=== PATIENT | female | born 1935 | race Caucasian/White ===

== ENCOUNTER → 2017-03-08 | Outpatient (CLI) | payer OTHER ==
[~2017-03-08] MED LIST: CITA20TA9 PO; ESTRADIOL 0.05 MG/24 HR TOP; MECL25TA2 PO; NAPR-1264 PO
--- NOTE | 2017-03-08 12:52 | MAMMOGRAPHY REPORT ---
BILATERAL DIGITAL SCREENING MAMMOGRAM WITH CAD: 03/08/2017 CLINICAL HISTORY: Routine screening. Patient has no complaints. TECHNIQUE: Current study was also evaluated with a Computer Aided Detection (CAD) system. Bilateral CC and MLO views were obtained. COMPARISON: Comparison is made to exams dated: 03/01/2016 mammogram, 02/28/2015 mammogram, 4 mammogram, 02/21/2012 mammogram, 02/20/2011 mammogram, and 02/17/2010 mammogram - [facility]. BREAST COMPOSITION: The tissue of both breasts is heterogeneously dense, which may obscure small mas ses. FINDINGS: No suspicious masses, calcifications, or areas of architectural distortion are noted in ei ther breast. There has been no significant interval change compared to prior exams. Scattered bilater al benign-appearing calcifications are not significantly changed. IMPRESSION: ACR BI-RADS CATEGORY 2: BENIGN There is no mammographic evidence of malignancy. A 1 year screening mammogram is recommended. The pa tient will receive written notification of the results. Approximately 10% of breast cancers are not detected with mammography. A negative mammographic report should not delay biopsy if a clinically suggestive mass is present. Mae Smith M.D. /:03/08/2017 12:11:35 Prospecting Driller Helper: Keturah Erickson, [facility] letter sent: Normal 1/2 BI-RADS Code: ACR BI-RADS Category 2: Benign
== END | disposition home or self-care (01) ==
LOC: C.MAMM 10:38
PROVIDERS: ATTEND Family Medicine
DX: Z12.31 Encounter for screening mammogram for malignant neoplasm of breast (principal)

== ENCOUNTER 2021-04-27 09:15 | Inpatient (IN) ==
--- NOTE | 2021-04-27 09:50 | Emergency Department Note ---
History of Present Illness General Chief complaint: GI Assessment Stated complaint: UPPER ABD PAIN Time Seen by Provider: 04/27/21 09:28 Source: patient Mode of arrival: ambulatory Limitations: no limitations History of Present Illness Provider complaint: abd pain Onset (ago): week(s) 3 Location: abdomen Radiation: non-radiation Severity: moderate Maximum Pain Intensity: 10 Quality: + constant Relieved By: + none Exacerbated By: + eating Associated symptoms: + loss of appetite, + malaise and + nausea/vomiting; no chest pain or no fever/chills Treatments prior to arrival: none This is an 85-year-old female presents the emergency department complaining of worsening abdominal pain. Patient states she first began to notice discomfort approximately 3 weeks ago. Patient states she has a long history of abdominal pain and prior abdominal surgery. 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 Patient denies fevers or chills, states she has been nauseated but does use Zofran that she had previously been given at home as needed. Patient states she has had minimal passage of gas. She states she feels bloated and distended. She does try to use Tylenol at home for pain however the pain was worse enough last night that she was unable to sleep and called her son this morning to bring her to the emergency room. Patient does not recall eating anything in particular that began her symptoms several weeks ago. Patient states she has had similar episodes in the past where she feels "blocked up". Pt seen during a time of high acuity and national emergency pandemic while wearing PPE. Home Medications Medication Instructions Recorded Confirmed Type citalopram 20 mg tablet 30 mg PO HS 02/16/18 04/27/21 History ondansetron 4 mg disintegrating 4 mg PO Q6H PRN 04/27/21 04/27/21 History tablet Allergies Allergy/AdvReac Type Severity Reaction Status Date / Time latex Allergy Mild blisters Verified 04/27/21 10:42 Past Med/Surg History Medical History (Updated 04/29/21 @ 01:05 by Charo Kelly DO) Difficult airway for intubation Essential hypertension Osteoporosis Reflux esophagitis Urge incontinence Surgical History (Updated 04/27/21 @ 13:37 by Irena Lehman PA-C) Status post Seferino fundoplication 2012 - Dr. Hedrick Family History Other Family history non-contributory Social History Smoking Status: Never smoker Hx Alcohol Use: No Hx Substance Use: No Preferred Language: Belarusian Communication Ability: Effective Public Housing Manager Required: No Beliefs That Will Affect Care: None marital status: Current Living Situation: Spouse and Family Feels Safe at Home: Yes Safety Concerns: Feels Safe At This Time Assistive Devices: Walker Review of Systems A total of 10 systems reviewed and were otherwise negative All systems reviewed & are unremarkable except as noted in HPI & below Physical Exam Vital Signs Vital Signs - 24 hr 04/27/21 09:20 04/27/21 10:07 04/27/21 10:30 Temperature 36.5 C Temperature Source Temporal Artery Scan Pulse Rate 68 68 69 Pulse Rate [Apical] Pulse Rate from SpO2 Sensor 66 68 Pulse Rhythm Regular Pulse Rhythm [Apical] Pulse Strength Normal Pulse Strength [Apical] Respiratory Rate 20 16 18 Respiratory Effort / Characteristics Non-Labored Spontaneous Respiratory Depth Normal Respiratory Pattern Regular Blood Pressure 156/101 H 160/87 H 191/95 H Blood Pressure [Left Arm] Blood Pressure Mean 119 111 127 Blood Pressure Mean [Left Arm] Blood Pressure Position Sitting Blood Pressure Position [Left Arm] Pulse Oximetry 100 97 97 Oxygen Delivery Method Room Air Sepsis Recent Fever Within 48 Hours No Sepsis New/Unexplained Change in Mental Status No Sepsis Action Taken by Nursing No Action Required 04/27/21 11:15 Temperature Temperature Source Pulse Rate Pulse Rate [Apical] 81 Pulse Rate from SpO2 Sensor Pulse Rhythm Pulse Rhythm [Apical] Regular Pulse Strength Pulse Strength [Apical] Normal Respiratory Rate 18 Respiratory Effort / Characteristics Non-Labored Respiratory Depth Normal Respiratory Pattern Regular Blood Pressure Blood Pressure [Left Arm] 171/92 H Blood Pressure Mean Blood Pressure Mean [Left Arm] 118 Blood Pressure Position Blood Pressure Position [Left Arm] Lying Pulse Oximetry 97 Oxygen Delivery Method Room Air Sepsis Recent Fever Within 48 Hours Sepsis New/Unexplained Change in Mental Status Sepsis Action Taken by Nursing GENERAL: alert, ill appearing, well nourished, no distress, non-toxic EYE EXAM: normal conjunctiva, PERRL and EOM's grossly intact OROPHARYNX: no exudate, no erythema, lips, buccal mucosa, and tongue normal and mucous membranes are moist NECK: supple, no nuchal rigidity, no adenopathy, non-tender LUNGS: Clear to auscultation. Normal chest wall mechanics, no w/r/r HEART: no murmurs, S1 normal and S2 normal ABDOMEN: abdomen soft, tenderness centrally with palpation, well healed surgical scars, normo-active bowel sounds, no masses, no rebound or guarding. BACK: Back is symmetrical on inspection and there is no deformity, no midline tenderness, no CVA tenderness. SKIN: no rashes and no bruising UPPER EXTREMITIES: upper extremities are grossly normal. FROM, nml pulses b/l. LOWER EXTREMITIES: No pitting edema. FROM, nml pulses b/l. NEURO EXAM: Normal sensorium, cranial nerves II-XII grossly intact, normal speech, no gross weakness of arms, no gross weakness of legs. Gross sensation intact. Course Course 1155: Patient and son updated on results at bedside. Patient states she is stil l having pain. Administered Medications Enoxaparin Sodium (Enoxaparin Inj 30 Mg/0.3 Ml Syr) 30 mg SQ HS MAREN; Protocol Stop: 05/28/21 20:59 Last Admin: 04/28/21 22:10 Dose: 30 mg Documented by: [id number] Lactated Ringer's (Lr) 1,000 mls @ 125 mls/hr IV .Q8H MAREN Stop: 05/27/21 09:44 Last Admin: 04/28/21 22:44 Dose: 125 mls/hr Documented by: [id number] Infusion: 04/28/21 22:16 Dose: 125 mls/hr Documented by: [id number] Admin: 04/28/21 14:16 Dose: 125 mls/hr Documented by: [id number] Infusion: 04/28/21 13:58 Dose: 125 mls/hr Documented by: [id number] Admin: 04/28/21 05:58 Dose: 125 mls/hr Documented by: [id number] Infusion: 04/28/21 05:57 Dose: 125 mls/hr Documented by: [id number] Admin: 04/27/21 21:57 Dose: 125 mls/hr Documented by: [id number] Infusion: 04/27/21 18:01 Dose: 0 mls/hr Documented by: [id number] Admin: 04/27/21 10:00 Dose: 125 mls/hr Documented by: [id number] Acetaminophen (Ofirmev) 65 mls @ 260 mls/hr IV Q8H MAREN Stop: 04/30/21 13:59 Last Infusion: 04/28/21 22:48 Dose: 0 mls/hr Documented by: [id number] Admin: 04/28/21 22:22 Dose: 260 mls/hr Documented by: [id number] Infusion: 04/28/21 15:47 Dose: 0 mls/hr Documented by: [id number] Admin: 04/28/21 14:14 Dose: 260 mls/hr Documented by: [id number] Infusion: 04/28/21 08:11 Dose: 0 mls/hr Documented by: [id number] Admin: 04/28/21 06:11 Dose: 260 mls/hr Documented by: [id number] Infusion: 04/28/21 00:31 Dose: 0 mls/hr Documented by: [id number] Admin: 04/28/21 00:10 Dose: 260 mls/hr Documented by: [id number] Infusion: 04/27/21 14:30 Dose: 0 mls/hr Documented by: [id number] Admin: 04/27/21 14:14 Dose: 260 mls/hr Documented by: [id number] Ceftriaxone Sodium 1,000 mg/ (Dextrose) 60 mls @ 100 mls/hr IV DAILY MAREN; Protocol Stop: 05/03/21 08:59 Last Infusion: 04/28/21 10:02 Dose: 0 mls/hr Documented by: [id number] Admin: 04/28/21 08:11 Dose: 100 mls/hr Documented by: [id number] Morphine Sulfate (Morphine Sulfate 2 Mg/Ml Carp) 2 mg IV Q4H PRN PRN Reason: Pain Stop: 05/11/21 15:56 Last Admin: 04/27/21 17:02 Dose: 2 mg Documented by: [id number] Ondansetron HCl (Ondansetron Inj 2 Mg/Ml 2 Ml Vial) 4 mg IV Q6H PRN PRN Reason: Nausea And Vomiting Stop: 05/27/21 15:52 Last Admin: 04/28/21 22:14 Dose: 4 mg Documented by: [id number] Admin: 04/28/21 14:18 Dose: 4 mg Documented by: [id number] Admin: 04/28/21 00:16 Dose: 4 mg Documented by: [id number] Discontinued Medications Fentanyl Citrate (Fentanyl Citrate 100 Mcg/2 Ml Vial) 25 mcg IV Q15M PRN PRN Reason: Pain Stop: 05/11/21 11:59 Last Admin: 04/27/21 15:45 Dose: 25 mcg Documented by: [id number] Admin: 04/27/21 14:51 Dose: 25 mcg Documented by: [id number] Ceftriaxone Sodium (Rocephin) 1,000 mg in 50 mls @ 100 mls/hr IV NOW STA Stop: 04/27/21 12:52 Last Infusion: 04/27/21 13:35 Dose: 0 mls/hr Documented by: [id number] Admin: 04/27/21 13:34 Dose: 100 mls/hr Documented by: [id number] Acetaminophen (Ofirmev) 650 mls @ 260 mls/hr IV Q8H MAREN Stop: 04/30/21 13:59 Last Admin: 04/27/21 14:21 Dose: Not Given Documented by: [id number] Ioversol (Optiray 320 100ml) 94 ml IV ONCE ONE Stop: 04/27/21 11:27 Last Admin: 04/27/21 11:22 Dose: 94 ml Documented by: [id number] Sodium Biphosphate/Sodium Phosphate (Sod Phosphate/Sod Biphosphate Enema 132 Ml Btl) 132 ml ND NOW STA Stop: 04/27/21 23:48 Last Admin: 04/28/21 00:11 Dose: 132 ml Documented by: [id number] Medical Decision Making Differential Diagnosis Differential diagnoses includes but is not limited to gastritis, peptic ulcer disease, GERD, gallbladder disease, pancreatitis, small bowel obstruction, acute coronary syndrome, pericarditis, ischemic bowel, irritable bowel disease, irritable bowel syndrome, appendicitis, diverticulitis, malignancy, hernia, urinary tract infection, torsion, [/ectopic (if female)], perforation, trauma, infectious. Medical Records Attestation: I reviewed the patient's medical records. Home Medications Current Medication List: was personally reviewed by me Laboratory Data Attestation: I reviewed the patient's lab results. Result diagrams: 04/28/21 06:17 04/28/21 06:17 Lab Results 04/27/21 04/27/21 04/27/21 Range/Units 09:59 09:59 09:59 WBC 5.94 (4.8-10.8) K/uL RBC 4.32 (4.2-5.4) M/uL Hgb 10.7 L (12.0-16.0) g/dL Hct 35.5 L (37-47) % MCV 82.2 (80-100) fL MCH 24.8 L (25-34) pg MCHC 30.1 L (32-36) g/dL RDW Std Deviation 45.4 (36.4-46.3) fL RDW Coeff of Kayli 15.1 H (11.5-14.5) % Plt Count 241 (130-400) K/uL MPV 10.5 H (7.4-10.4) fL Immature Gran % (Auto) 0.2 % Neut % (Auto) 85.3 % Lymph % (Auto) 8.1 % [place] % (Auto) 6.2 % Eos % (Auto) 0.0 % Baso % (Auto) 0.2 % Neut # (Auto) 5.07 (1.4-6.5) K/uL Lymph # (Auto) 0.48 L (1.2-3.4) K/uL [place] # (Auto) 0.37 (0.11-0.59) K/uL Eos # (Auto) 0.00 (0-0.5) K/uL Baso # (Auto) 0.01 (0-0.2) K/uL Immature Gran # (Auto) 0.01 (0.00-0.02) K/uL Sodium 136 (136-145) mmol/L Potassium 3.7 (3.5-5.1) mmol/L Chloride 98 (98-107) mmol/L Carbon Dioxide 30 (21-32) mmol/L Anion Gap 8 (3-11) BUN 15 (6-23) mg/dl Creatinine 0.76 (0.6-1.2) mg/dl Est Cr Clr Drug Dosing 36.6 ml/min Est GFR ( Amer) 81.7 ml/min Est GFR (Non-Af Amer) 70.5 ml/min BUN/Creatinine Ratio 19.7 (10-20) Glucose 117 H (70-99(Fasting)) mg/dl Lactate 1.5 (0.4-2.0) mmol/L Calcium 9.0 (8.5-10.1) mg/dl Magnesium 1.9 (1.7-2.4) mg/dl Total Bilirubin 0.6 (0.2-1.0) mg/dl AST 18 (13-39) U/L ALT 8 (7-52) U/L Alkaline Phosphatase 66 (34-104) U/L Troponin I 0.06 H* (0-0.04) ng/ml Total Protein 6.6 (6.0-8.3) gm/dl Albumin 4.2 (3.4-5.0) gm/dl Globulin 2.4 L (2.5-4.0) gm/dl Albumin/Globulin Ratio 1.8 (0.9-2) Lipase 6 L (11-82) U/L Urine Color Urine Appearance (Clear) Urine pH (4.5-7.5) Ur Specific [place] (1.000-1.030) Urine Protein (Negative) Urine Glucose (UA) (Negative) Urine Ketones (Negative) Urine Blood (Negative) Urine Nitrite (Negative) Urine Bilirubin (Negative) Urine Urobilinogen (Negative) Ur Leukocyte Esterase (Negative) Urine WBC (Auto) (0-5) /hpf Urine RBC (Auto) (0-4) /hpf U Hyaline Cast (Auto) (0-5) /lpf U Epithel Cells (Auto) (0-5) /lpf Urine Bacteria (Auto) (Negative) 04/27/21 Range/Units 10:15 WBC (4.8-10.8) K/uL RBC (4.2-5.4) M/uL Hgb (12.0-16.0) g/dL Hct (37-47) % MCV (80-100) fL MCH (25-34) pg MCHC (32-36) g/dL RDW Std Deviation (36.4-46.3) fL RDW Coeff of Kayli (11.5-14.5) % Plt Count (130-400) K/uL MPV (7.4-10.4) fL Immature Gran % (Auto) % Neut % (Auto) % Lymph % (Auto) % [place] % (Auto) % Eos % (Auto) % Baso % (Auto) % Neut # (Auto) (1.4-6.5) K/uL Lymph # (Auto) (1.2-3.4) K/uL [place] # (Auto) (0.11-0.59) K/uL Eos # (Auto) (0-0.5) K/uL Baso # (Auto) (0-0.2) K/uL Immature Gran # (Auto) (0.00-0.02) K/uL Sodium (136-145) mmol/L Potassium (3.5-5.1) mmol/L Chloride (98-107) mmol/L Carbon Dioxide (21-32) mmol/L Anion Gap (3-11) BUN (6-23) mg/dl Creatinine (0.6-1.2) mg/dl Est Cr Clr Drug Dosing ml/min Est GFR ( Amer) ml/min Est GFR (Non-Af Amer) ml/min BUN/Creatinine Ratio (10-20) Glucose (70-99(Fasting)) mg/dl Lactate (0.4-2.0) mmol/L Calcium (8.5-10.1) mg/dl Magnesium (1.7-2.4) mg/dl Total Bilirubin (0.2-1.0) mg/dl AST (13-39) U/L ALT (7-52) U/L Alkaline Phosphatase (34-104) U/L Troponin I (0-0.04) ng/ml Total Protein (6.0-8.3) gm/dl Albumin (3.4-5.0) gm/dl Globulin (2.5-4.0) gm/dl Albumin/Globulin Ratio (0.9-2) Lipase (11-82) U/L Urine Color Yellow Urine Appearance Cloudy A (Clear) Urine pH 7.5 (4.5-7.5) Ur Specific [place] 1.018 (1.000-1.030) Urine Protein 1+ H (Negative) Urine Glucose (UA) Negative (Negative) Urine Ketones 1+ H (Negative) Urine Blood Negative (Negative) Urine Nitrite Negative (Negative) Urine Bilirubin Negative (Negative) Urine Urobilinogen Negative (Negative) Ur Leukocyte Esterase 3+ H (Negative) Urine WBC (Auto) >30 H (0-5) /hpf Urine RBC (Auto) 0-4 (0-4) /hpf U Hyaline Cast (Auto) 1-5 (0-5) /lpf U Epithel Cells (Auto) >30 H (0-5) /lpf Urine Bacteria (Auto) 4+ H (Negative) Imaging Data Radiologist's Impression: Abdomen/Pelvis CT 04/27/21 09:43 CT abd pelvis IV con only CLINICAL HISTORY: abd pain/distention, nausea COMPARISON STUDY: 09/16/2020 CT DOSE: 260.80 mGycm TECHNIQUE: Standard CT of the Abdomen and Pelvis was performed with IV contrast. A dose lowering technique was utilized adhering to the principles of ALARA. Contrast Volume: Optiray 320, 94 ml. The patient did not receive oral contrast. FINDINGS: Lung base: The lung bases are clear. Abdominal cavity: There is mild abdominal ascites with fluid surrounding the l iver and spleen extending down the right paracolic gutter. Mild pelvic ascites also present. There is no gross abdominal mass or adenopathy. Liver: There is homogeneous attenuation of the liver parenchyma. There is no evidence for enhancing mass lesion. Spleen: There is homogeneous attenuation of the splenic parenchyma. There is no enhancing mass lesion. Pancreas: There is homogeneous attenuation of the pancreatic parenchyma. There is no evidence for mass lesion or peripancreatic fluid collection. Gall Bladder: The gallbladder is well distended with no evidence for intraluminal calculi, wall thickening or pericholecystic edema. Adrenal glands: The adrenal glands are normal in size and attenuation. There is no evidence for enhancing mass lesion. Kidneys: There is homogeneous attenuation of the renal parenchyma bilaterally. There is no evidence for renal calculus or hydronephrosis. There is no evidence for enhancing mass. Bowel: There is a small hiatal hernia. There is moderate dilatation of the small bowel loops to the level of the left lower quadrant. The distal small bowel loops are decompressed. No focal site of obstruction is seen. However, the findings are characteristic of a partial small bowel obstruction. There is prominent fecal material seen within the colon. Findings represent moderate fecal stasis. There is no evidence for an inflamed appendix. There are no inflammatory changes present. There is no evidence for free air. Bladder: The bladder is within normal limits with no evidence for focal mass, calculus or diverticulum. : There is no evidence for pelvic mass or adenopathy. There is mild pelvic a scites present. Vasculature: There is no evidence for aneurysmal dilatation of the abdominal aorta. Atherosclerotic calcification is present. Osseous structures: There is no acute osseous pathology. Degenerative changes are seen within the spine. IMPRESSION: 1. Evidence for partial small bowel obstruction most likely within the left lower quadrant. However, a focal site of transition is not identified. 2. Moderate fecal stasis. 3. Small hiatal hernia. 4. Mild abdominal and pelvic ascites. 5. Additional nonacute findings are delineated above. ACT 112: Negative or not required by law. Electronically signed by: Kevin Leggett M.D. 04/27/2021 11:42 AM MDM Narrative This is an 85-year-old female presents complaining of abdominal pain. Patient with significant past prior abdominal surgeries. Patient with generalized weakness and admits to dehydration. Labs are reassuring, however CT suggestive of partial small bowel obstruction. Patient also found to have a suboptimally UA however suggestive of UTI. She was covered with IV antibiotics as a precaution and culture was sent. Patient given medication for pain and nausea and started on gentle IV fluid rehydration. Due to concern for evolving SBO as well as symptoms, case discussed with hospitalist for additional evaluation and management. No evidence for perforation, concurrent infectious etiology, or ischemia. Patient and son at bedside made aware of all results, verbalized understanding, and were in agreement with plan. An order was placed for continuous cardiac monitoring. The monitor shows a rate of _82_ with _normal sinus_ rhythm. Impression & Plan Abdominal pain, Partial small bowel obstruction, Acute UTI (urinary tract infection), Dehydration, Generalized weakness Discharge Plan Visit Data Chief Complaint: GI Assessment Stated Complaint: UPPER ABD PAIN ED Provider: Charo Kelly Discharge Problem: Abdominal pain, Partial small bowel obstruction, Acute UTI (urinary tract infection), Dehydration, Generalized weakness Patient Disposition: Admitted As Inpatient Discharge Instructions Interventions: ED Discharge Assessment Last Done: 04/27/21 15:09 Discharge Problem: Abdominal pain Qualifiers: Abdominal location: generalized Qualified Code(s): R10.84 - Generalized abdominal pain
[2021-04-27] MEDS: LACTATED RINGER'S 1,000 ML IV SCH ×2 (10:00→21:57)
[2021-04-27 10:08] LABS: Basophils # (auto) 0.01 K/uL (0-0.2); Basophils % (auto) 0.2 %; Hematocrit (blood only) 35.5 % (37-47); Hemoglobin 10.7 g/dL (12.0-16.0); Immature Granulocytes # (auto) 0.01 K/uL (0.00-0.02); Immature Granulocytes % (auto) 0.2 %; Lymphocytes # (auto) 0.48 K/uL (1.2-3.4); Lymphocytes % (auto) 8.1 %; Mean Corpuscular Hemoglobin 24.8 pg (25-34); Mean Corpuscular Hgb Conc 30.1 g/dL (32-36); Mean Corpuscular Volume 82.2 fL (80-100); Mean Platelet Volume 10.5 fL (7.4-10.4); Monocytes # (auto) 0.37 K/uL (0.11-0.59); Monocytes % (auto) 6.2 %; Neutrophils # (auto) 5.07 K/uL (1.4-6.5); Neutrophils % (auto) 85.3 %; Platelet Count 241 K/uL (130-400); RDW Coefficient of Variation 15.1 % (11.5-14.5); RDW Standard Deviation 45.4 fL (36.4-46.3); Red Blood Count 4.32 M/uL (4.2-5.4); White Blood Count 5.94 K/uL (4.8-10.8)
[2021-04-27 10:50] LABS: Appearance Urine Cloudy (Clear); Bacteria Urine Automated 4+ (Negative); Bilirubin Urine Negative (Negative); Blood Urine Negative (Negative); Color Urine Yellow; Epithelial Cell Urine Auto >30 /lpf (0-5); Glucose Urine UA Negative (Negative); Ketones Urine 1+ (Negative); Leukocyte Esterase Urine 3+ (Negative); Nitrite Urine Negative (Negative); RBC Urine Automated 0-4 /hpf (0-4); Specific Gravity Urine 1.018 (1.000-1.030); Urobilinogen Urine Negative (Negative); WBC Urine Automated >30 /hpf (0-5); pH Urine 7.5 (4.5-7.5)
[2021-04-27 10:52] LABS: Protein Urine 1+ (Negative)
[2021-04-27 10:55] LABS: Albumin Globulin Ratio 1.8 (0.9-2); Albumin Level 4.2 gm/dl (3.4-5.0); BUN Creatinine Ratio 19.7 (10-20); Bilirubin,Total 0.6 mg/dl (0.2-1.0); Creatinine Clr Calc Pharmacy 36.6 ml/min; Est GFR (African American) 81.7 ml/min; Est GFR (Non-African American) 70.5 ml/min; Globulin 2.4 gm/dl (2.5-4.0); Magnesium 1.9 mg/dl (1.7-2.4); Potassium 3.7 mmol/L (3.5-5.1); Total Protein 6.6 gm/dl (6.0-8.3)
[2021-04-27 11:14] LABS: Troponin I 0.06 ng/ml (0-0.04)
[2021-04-27] MEDS ORDERED: OPTIRAY 320 100ml IV ONE (11:26)
--- NOTE | 2021-04-27 11:43 | CT Scan Report ---
CT abd pelvis IV con only CLINICAL HISTORY: abd pain/distention, nausea COMPARISON STUDY: 09/16/2020 CT DOSE: 260.80 mGycm TECHNIQUE: Standard CT of the Abdomen and Pelvis was performed with IV contrast. A dose lowering jojo hnique was utilized adhering to the principles of ALARA. Contrast Volume: Optiray 320, 94 ml. The patient did not receive oral contrast. FINDINGS: Lung base: The lung bases are clear. Abdominal cavity: There is mild abdominal ascites with fluid surrounding the liver and spleen extendi ng down the right paracolic gutter. Mild pelvic ascites also present. There is no gross abdominal mas s or adenopathy. Liver: There is homogeneous attenuation of the liver parenchyma. There is no evidence for enhancing m ass lesion. Spleen: There is homogeneous attenuation of the splenic parenchyma. There is no enhancing mass lesion . Pancreas: There is homogeneous attenuation of the pancreatic parenchyma. There is no evidence for mas s lesion or peripancreatic fluid collection. Gall Bladder: The gallbladder is well distended with no evidence for intraluminal calculi, wall thick ening or pericholecystic edema. Adrenal glands: The adrenal glands are normal in size and attenuation. There is no evidence for enhan cing mass lesion. Kidneys: There is homogeneous attenuation of the renal parenchyma bilaterally. There is no evidence f or renal calculus or hydronephrosis. There is no evidence for enhancing mass. Bowel: There is a small hiatal hernia. There is moderate dilatation of the small bowel loops to the l evel of the left lower quadrant. The distal small bowel loops are decompressed. No focal site of obst ruction is seen. However, the findings are characteristic of a partial small bowel obstruction. There is prominent fecal material seen within the colon. Findings represent moderate fecal stasis. Th ere is no evidence for an inflamed appendix. There are no inflammatory changes present. There is no e vidence for free air. Bladder: The bladder is within normal limits with no evidence for focal mass, calculus or diverticulu m. : There is no evidence for pelvic mass or adenopathy. There is mild pelvic ascites present. Vasculature: There is no evidence for aneurysmal dilatation of the abdominal aorta. Atherosclerotic c alcification is present. Osseous structures: There is no acute osseous pathology. Degenerative changes are seen within the spi ne. IMPRESSION: 1. Evidence for partial small bowel obstruction most likely within the left lower quadrant. However, a focal site of transition is not identified. 2. Moderate fecal stasis. 3. Small hiatal hernia. 4. Mild abdominal and pelvic ascites. 5. Additional nonacute findings are delineated above. ACT 112: Negative or not required by law. Electronically signed by: Kevin Leggett M.D. 04/27/2021 11:42 AM
[2021-04-27] MEDS ORDERED: cefTRIAXone SODIUM 1,000 MG/50 ML BAG IV STA (12:23)
--- NOTE | 2021-04-27 12:45 | History & Physical Report ---
Date of Service April 27, 2021 Assessment & Plan (1) Partial small bowel obstruction: Plan: Imaging reviewed. Noted to have fecal stasis on CT, which may be exacerbating her clinical picture - Admit to med/surg telemetry - Continue NPO status - hold NGT for now but will consider if worsening - Consult surgery - Check KUB in the AM - Tap water enema x 1 today - re-eval in AM if additional bowel regimen needed. Pt takes dulcolax prn at baseline - IVF hydration (2) Elevated troponin: Plan: - Trend troponin - Repeat EKG in AM - Check ECHO (3) Repeated falls: Plan: PT/OT evaluation once medically stable (4) Urinary tract infection symptoms: Plan: - Covering empirically with ceftriaxone while waiting on urine culture Plan: Pt seen and reviewed with collaborating physician, Dr. Mcmahon. Plan of care discussed and as outlined above. Code Status: Full code DVT Prophylaxis: Daksha Lehman PA-C History of Present Illness Chief Complaint: Abdominal pain Primary Care Provider: Calvin Mcgill MD This is an 85 y/o female with a PMH of HTN (not on meds), urge incontinence (not on meds), DJD, osteoporosis, and reflux esophagitis s/p Seferino fundoplication who presents to the ED with acute worsening of chronic abdominal pain over the past 24 hours. The pt reports having a laparoscopic Seferino fundoplication by Dr. Hedrick in 2011. Since then, she has had some ongoing issues with intermittent abdominal pain and things getting stuck that she manages with diet modification. However, this has slowly worsened over the past several months such that she can only tolerate a few foods at present including Ritz crackers and coffee-soaked bread. Over the past few weeks, her pain has become more constant and she has noted worsening of chronic constipation. Her last BM was 8-9 days ago and was hard and difficult to pass. She has been using Dulcolax for constipation intermittently. Typically Zofran controls her occasional nausea but over the past 24 hours this no longer seems to be helping. She does have a history of difficulty tolerating narcotics so she prefers to use acetaminophen for pain. Since the Seferino, she does not vomit but she does have nausea and gagging that is worse today. Pain kept her up most of last night. When pain is severe, she has associated chills and sweats. She did have some transient substernal chest pain last night but this has since resolved and she relates it to the abdominal pain. She denies documented fever and shortness of breath. No recent dysuria, hematuria, urinary frequency. She has chronic issues with intermittent dizziness and her son has noted increased falls rec ently due to this. She does not use a walker at home. She cares for her 92 y/o usually. Her son has noted a gradual decline in her oral intake and even energy over the past the several months. Allergies Allergy/AdvReac Type Severity Reaction Status Date / Time latex Allergy Mild blisters Verified 04/27/21 10:42 Home Medications Medication Instructions Recorded Confirmed Type citalopram 20 mg tablet 30 mg PO HS 02/16/18 04/27/21 History ondansetron 4 mg disintegrating 4 mg PO Q6H PRN 04/27/21 04/27/21 History tablet Past Med/Surg History Medical History (Updated 04/27/21 @ 17:26 by Irena Lehman PA-C) Difficult airway for intubation Essential hypertension Osteoporosis Reflux esophagitis Urge incontinence Surgical History (Updated 04/27/21 @ 13:37 by Irena Lehman PA-C) Status post Seferino fundoplication 2011 - Dr. Hedrick Family History Other Family history non-contributory Social History Smoking Status: Never smoker Preferred Language: Bhutanese Feels Safe at Home: Yes Review of Systems Review of Systems: All systems reviewed & are unremarkable except as noted in HPI & below Constitutional: + chills, + sweats, + fatigue and + anorexia; no fever Eyes: no diplopia Ear, Nose, Mouth, Throat: no sore throat and no dysphagia Respiratory: no cough, no chest congestion and no dyspnea Cardiovascular: + chest pain; no palpitations, no lightheadedness and no edema Gastrointestinal: as per Subjective / HPI Genitourinary: no dysuria and no hematuria Musculoskeletal: no back pain and no neck pain Integumentary: no rash and no yellowing of the skin Neurologic: + falls, + generalized weakness and + dizziness Physical Exam Constitutional: + ill appearing and + thin; no acute distress Eyes: + anicteric sclerae Neck: trachea midline Respiratory: no respiratory distress and no labored breathing Auscultation: lungs clear to auscultation bilaterally; no rales, no rhonchi and no wheezes Cardiovascular: Rate/Rhythm: regular rate and regular rhythm Vessels: posterior tibial pulses present and dorsalis pedis pulses present Extremities: no pedal edema Gastrointestinal (Abdomen): Inspection/Auscultation: + abdomen distended and normal bowel sounds Percussion/Palpation: + abdomen tender and abdomen soft; no guarding and abdomen not rigid Musculoskeletal: Head/Neck/Chest: normocephalic, head atraumatic and neck supple Skin: no jaundice Neurologic: moves all extremities; no focal motor deficits Results & Data Results & Data ([facility]) Vital Signs (Past 12 Hours) Vital Signs Temp Pulse Pulse Resp BP BP Pulse Ox 04/27/21 11:15 81 18 171/92 H 97 04/27/21 10:30 69 18 191/95 H 97 04/27/21 10:07 68 16 160/87 H 97 04/27/21 09:20 36.5 C 68 20 156/101 H 100 Laboratory Results Laboratory Results - last 24 hr 04/27/21 04/27/21 04/27/21 09:59 09:59 09:59 WBC 5.94 RBC 4.32 Hgb 10.7 L Hct 35.5 L MCV 82.2 MCH 24.8 L MCHC 30.1 L RDW Std Deviation 45.4 RDW Coeff of Kayli 15.1 H Plt Count 241 MPV 10.5 H Immature Gran % (Auto) 0.2 Neut % (Auto) 85.3 Lymph % (Auto) 8.1 Cass % (Auto) 6.2 Eos % (Auto) 0.0 Baso % (Auto) 0.2 Neut # (Auto) 5.07 Lymph # (Auto) 0.48 L Cass # (Auto) 0.37 Eos # (Auto) 0.00 Baso # (Auto) 0.01 Immature Gran # (Auto) 0.01 Sodium 136 Potassium 3.7 Chloride 98 Carbon Dioxide 30 Anion Gap 8 BUN 15 Creatinine 0.76 Est Cr Clr Drug Dosing 36.6 Est GFR ( Amer) 81.7 Est GFR (Non-Af Amer) 70.5 BUN/Creatinine Ratio 19.7 Glucose 117 H Lactate 1.5 Calcium 9.0 Magnesium 1.9 Total Bilirubin 0.6 AST 18 ALT 8 Alkaline Phosphatase 66 Troponin I 0.06 H* Total Protein 6.6 Albumin 4.2 Globulin 2.4 L Albumin/Globulin Ratio 1.8 Lipase 6 L Urine Color Urine Appearance Urine pH Ur Specific Empire Urine Protein Urine Glucose (UA) Urine Ketones Urine Blood Urine Nitrite Urine Bilirubin Urine Urobilinogen Ur Leukocyte Esterase Urine WBC (Auto) Urine RBC (Auto) U Hyaline Cast (Auto) U Epithel Cells (Auto) Urine Bacteria (Auto) 04/27/21 10:15 WBC RBC Hgb Hct MCV MCH MCHC RDW Std Deviation RDW Coeff of Kayli Plt Count MPV Immature Gran % (Auto) Neut % (Auto) Lymph % (Auto) Cass % (Auto) Eos % (Auto) Baso % (Auto) Neut # (Auto) Lymph # (Auto) Cass # (Auto) Eos # (Auto) Baso # (Auto) Immature Gran # (Auto) Sodium Potassium Chloride Carbon Dioxide Anion Gap BUN Creatinine Est Cr Clr Drug Dosing Est GFR ( Amer) Est GFR (Non-Af Amer) BUN/Creatinine Ratio Glucose Lactate Calcium Magnesium Total Bilirubin AST ALT Alkaline Phosphatase Troponin I Total Protein Albumin Globulin Albumin/Globulin Ratio Lipase Urine Color Yellow Urine Appearance Cloudy A Urine pH 7.5 Ur Specific Empire 1.018 Urine Protein 1+ H Urine Glucose (UA) Negative Urine Ketones 1+ H Urine Blood Negative Urine Nitrite Negative Urine Bilirubin Negative Urine Urobilinogen Negative Ur Leukocyte Esterase 3+ H Urine WBC (Auto) >30 H Urine RBC (Auto) 0-4 U Hyaline Cast (Auto) 1-5 U Epithel Cells (Auto) >30 H Urine Bacteria (Auto) 4+ H Diagnostic Findings CT Abd/Pel 04/27/21 - IMPRESSION: 1. Evidence for partial small bowel obstruction most likely within the left lower quadrant. However, a focal site of transition is not identified. 2. Moderate fecal stasis. 3. Small hiatal hernia. 4. Mild abdominal and pelvic ascites. 5. Additional nonacute findings are delineated above. Medications Administered Lactated Ringer's (Lr) 1,000 mls @ 125 mls/hr IV .Q8H MAREN Stop: 05/27/21 09:44 Last Admin: 04/27/21 10:00 Dose: 125 mls/hr Documented by: [id number] Discontinued Medications Ioversol (Optiray 320 100ml) 94 ml IV ONCE ONE Stop: 04/27/21 11:27 Last Admin: 04/27/21 11: Dose: 94 ml Documented by: [id number] Code Status & VTE Plan VTE Prophylaxis Plan VTE Prophylaxis will be ordered: Yes Supervising Physician Co-Signing Physician Notes Patient is an 85-year-old female with history of degenerative joint disease, osteoporosis, GERD, and other medical problems presents with history of worsening abdominal pain since 1 day duration. Patient has history of laparoscopic Seferino fundoplication many years ago. Patient states her last bowel movement was more than a week ago. She admits to trying Dulcolax for constipation intermittently. Also reports nausea but no vomiting. Reports chills but no fever. Also denies any chest pain, shortness of breath. Please review HPI for complete details of presentation. Blood work suggestive of hemoglobin 10.7, troponin 0 0.06. Urinalysis suggestive of possible UTI. CT abdomen showed findings suggestive of partial small bowel obstruction also noted moderate fecal stasis, small hiatal hernia and mild abdominal pelvic ascites. On exam patient is elderly, ill-appearing, thin, no apparent distress, normocephalic atraumatic, EOMI, decreased breath sounds, clear to auscultation, S1-S2, no murmur, no pedal edema, abdomen distended, tender, decreased bowel sounds, voluntary guarding, alert, awake, oriented, grossly no focal deficits. Patient is admitted for management of partial small bowel obstruction. Also noted mild elevation of troponin likely secondary to elevated blood pressure. Urinalysis concerning for UTI. We will keep her n.p.o. for now. Pain control. IV fluids. Surgery consulted. Will give tap water enema for fecal stasis. Consider NG tube placement if needed. Agree with trending cardiac enzymes, check echo and repeat EKG in the morning. I personally reviewed the record. Patient is interviewed and examined at bedside. Patient's care is coordinated with Irena Lehman PA-C. Please refer to the documentation above for details of patient's presentation and for discussion of other issues.
[2021-04-27] MEDS ORDERED: ACETAMINOPHEN 1000 MG/100 ML IV IV SCH (13:15)
[2021-04-27] MEDS ORDERED: ACETAMINOPHEN IV SCH (14:00)
[2021-04-27] MEDS: ACETAMINOPHEN 65 ML IV SCH (14:14)
--- NOTE | 2021-04-27 14:30 | Electrocardiogram Report ---
Test Reason : Blood Pressure : / mmHG Vent. Rate : 065 BPM Atrial Rate : 065 BPM P-R Int : 142 ms QRS Dur : 082 ms QT Int : 452 ms P-R-T Axes : -07 -08 030 degrees QTc Int : 470 ms Normal sinus rhythm Normal ECG When compared with ECG of 16-SEP-2020 08:46, Premature atrial complexes are no longer Present Confirmed by Regan Mathew ([id number]) on 04/27/2021 2:30:05 PM Referred By: Confirmed By:Regan Mathew
[2021-04-27] MEDS: fentaNYL citrate 100 MCG/2 ML VIAL IV PRN ×2 (14:51→15:45)
[2021-04-27] MEDS ORDERED: NITROGLYCERIN SL 0.4 MG/TAB TAB SL PRN (15:53)
[2021-04-27] MEDS: MoRPHine SULFATE 2 MG/ML CARP IV PRN (17:02)
--- NOTE | 2021-04-27 20:08 | Surgery Consultation ---
Date of Consultation April 27, 2021 Assessment & Plan (1) Urinary tract infection symptoms: see below (2) Partial small bowel obstruction: pt is a 85 year-old female who presents with one day history abdominal pain, CT scan PSBO IMP: PSBO, UTI plan, I agree with internal medicine teat admit pt to hospital, no emergent surgery indication now, conservative treatment , NPO, Iv fluid, antibiotic, control pain, enema, repeat labs in morning, will F/U, pt and her son agree with the plan, I answered all questions, Supervising Physician Co-Signing Physician Notes Patient is an 85-year-old female with history of degenerative joint disease, osteoporosis, GERD, and other medical problems presents with history of worsening abdominal pain since 1 day duration. Patient has history of laparoscopic Seferino fundoplication many years ago. Patient states her last bowel movement was more than a week ago. She admits to trying Dulcolax for constipation intermittently. Also reports nausea but no vomiting. Reports chills but no fever. Also denies any chest pain, shortness of breath. Please review HPI for complete details of presentation. Blood work suggestive of hem oglobin 10.7, troponin 0 0.06. Urinalysis suggestive of possible UTI. CT abdomen showed findings suggestive of partial small bowel obstruction also noted moderate fecal stasis, small hiatal hernia and mild abdominal pelvic ascites. On exam patient is elderly, ill-appearing, thin, no apparent distress, normocephalic atraumatic, EOMI, decreased breath sounds, clear to auscultation, S1-S2, no murmur, no pedal edema, abdomen distended, tender, decreased bowel sounds, voluntary guarding, alert, awake, oriented, grossly no focal deficits. Patient is admitted for management of partial small bowel obstruction. Also noted mild elevation of troponin likely secondary to elevated blood pressure. Urinalysis concerning for UTI. We will keep her n.p.o. for now. Pain control. IV fluids. Surgery consulted. Will give tap water enema for fecal stasis. Consider NG tube placement if needed. Agree with trending cardiac enzymes, check echo and repeat EKG in the morning. I personally reviewed the record. Patient is interviewed and examined at bedside. Patient's care is coordinated with Irena Lehman PA-C. Please refer to the documentation above for details of patient's presentation and for discussion of other issues. History of Present Illness Reason for Consultation: partial SBO Requesting Physician: Bao Mcmahon MD Attending Physician: Bao Mcmahon MD History of Present Illness History of Present Illness Chief Complaint: Abdominal pain Primary Care Provider: Calvin Mcgill MD This is an 85 y/o female with a PMH of HTN (not on meds), urge incontinence (not on meds), DJD, osteoporosis, and reflux esophagitis s/p Seferino fundoplication who presents to the ED with acute worsening of chronic abdominal pain over the past 24 hours. The pt reports having a laparoscopic Seferino fundoplication by Dr. Hedrick in 2011. Since then, she has had some ongoing issues with intermittent abdominal pain and things getting stuck that she manages with diet modification. However, this has slowly worsened over the past several months such that she can only tolerate a few foods at present including Ritz crackers and coffee-soaked bread. Over the past few weeks, her pain has become more constant and she has noted worsening of chronic constipation. Her last BM was 8-9 days ago and was hard and difficult to pass. She has been using Dulcolax for constipation intermittently. Typically Zofran controls her occasional nausea but over the past 24 hours this no longer seems to be helping. She does have a history of difficulty tolerating narcotics so she prefers to use acetaminophen for pain. Since the Seferino, she does not vomit but she does have nausea and gagging that is worse today. Pain kept her up most of last night. When pain is severe, she has associated chills and sweats. She did have some transient substernal chest pain last night but this has since resolved and she relates it to the abdominal pain. She denies documented fever and shortness of breath. No recent dysuria, hematuria, urinary frequency. She has chronic issues with intermittent dizziness and her son has noted increased falls recently due to this. She does not use a walker at home. She cares for her 92 y/o usually. Her son has noted a gradual decline in her oral intake and even energy over the past the several months. I ( Nelda Russell MD ) got a call for consult partial SBO, I reviewed pt's H/P, labs, CT scan with pt and her son, I agree with above history. pt is still have some periumbilical pain, pt has not have BM one week, Allergies Allergy/AdvReac Type Severity Reaction Status Date / Time latex Allergy Mild blisters VerifiedC 04/27/21 10:42 Home Medications Medication Instructions Recorded Confirmed Type citalopram 20 mg tablet 30 mg PO HS 02/16/18 04/27/21 History ondansetron 4 mg disintegrating 4 mg PO Q6H PRN 04/27/21 04/27/21 History tablet Past Med/Surg History Medical History(Updated 04/27/21 @ 17:26 by Irena Lehman PA-C) Difficult airway for intubation Essential hypertension Osteoporosis Reflux esophagitis Urge incontinence Surgical History(Updated 04/27/21 @ 13:37 by Irena Lehman PA-C) Status post Seferino fundoplication 2011 - Dr. Hedrick Family History Other Family history non-contributory Social History Smoking Status: Never smoker Preferred Language: Wallisian Feels Safe at Home: Yes Review of Systems Review of Systems: All systems reviewed & are unremarkable except as noted in HPI & below Constitutional:J + chills, + sweats, + fatigue and + anor exia; no fever Eyes: no diplopia Ear, Nose, Mouth, Throat: no sore throat and no dysphagia D Respiratory: no cough, no chest congestion and no dyspnea Cardiovascular: + chest pain; no palpitations, no lighth eadedness and no edema Gastrointestinal: as per Subjective / HPI Genitourinary: no dysuria and no hematuria Musculoskeletal: no back pain and no neck pain Integumentary: no rash and no yellowing of the skin Neurologic: + falls, + generalized weakness and + di zziness Allergies Allergy/AdvReac Type Severity Reaction Status Date / Time latex Allergy Mild blisters Verified 04/27/21 10:42 Home Medications Medication Instructions Recorded Confirmed Type citalopram 20 mg tablet 30 mg PO HS 02/16/18 04/27/21 History ondansetron 4 mg disintegrating 4 mg PO Q6H PRN 04/27/21 04/27/21 History tablet Patient History Medical History (Updated 04/27/21 @ 17:26 by Irena Lehman PA-C) Difficult airway for intubation Essential hypertension Osteoporosis Reflux esophagitis Urge incontinence Surgical History (Updated 04/27/21 @ 13:37 by Irena Lehman PA-C) Status post Seferino fundoplication 2012 - Dr. Hedrick Family History Other Family history non-contributory Social History Smoking Status: Never smoker Preferred Language: Wallisian Feels Safe at Home: Yes Physical Exam Constitutional: WD/WN, vitals as above Eyes: PERRL, conjunctivae normal, anicteric sclerae Neck: trachea midline, no thyromegaly Respiratory: normal respiratory effort, lungs clear to auscultation Cardiovascular: RRR, no murmur, no edema Gastrointestinal (Abdomen): soft, mild tenderness at periumbilical area, no rebound pain, no distend, BS + Neurologic: patellar DTR's 2+ bilat, sensation intact Psychiatric: A+Ox3, euthymic affect Results & Data ([facility]) Vital Signs (Past 12 Hours) Vital Signs Temp Pulse Pulse Resp BP BP Pulse Ox 04/27/21 17:00 67 14 168/77 H 96 04/27/21 16:59 67 18 154/97 H 97 04/27/21 15:53 61 17 170/97 H 99 04/27/21 15:30 67 16 188/104 H 98 04/27/21 15:09 65 18 157/89 H 97 04/27/21 15:00 70 15 157/89 H 94 04/27/21 14:54 66 18 173/93 H 97 04/27/21 14:17 74 18 172/94 H 97 04/27/21 11:15 81 18 171/92 H 97 04/27/21 10:30 69 18 191/95 H 97 04/27/21 10:07 68 16 160/87 H 97 04/27/21 09:20 36.5 C 68 20 156/101 H 100 Laboratory Results Abnormal lab results 04/27/21 04/27/21 04/27/21 Range/Units 09:59 09:59 10:15 Hgb 10.7 L (12.0-16.0) g/dL Hct 35.5 L (37-47) % MCH 24.8 L (25-34) pg MCHC 30.1 L (32-36) g/dL RDW Coeff of Kayli 15.1 H (11.5-14.5) % MPV 10.5 H (7.4-10.4) fL Lymph # (Auto) 0.48 L (1.2-3.4) K/uL Glucose 117 H (70-99(Fasting)) mg/dl Troponin I 0.06 H* (0-0.04) ng/ml Globulin 2.4 L (2.5-4.0) gm/dl Lipase 6 L (11-82) U/L Urine Appearance Cloudy A (Clear) Urine Protein 1+ H (Negative) Urine Ketones 1+ H (Negative) Ur Leukocyte Esterase 3+ H (Negative) Urine WBC (Auto) >30 H (0-5) /hpf U Epithel Cells (Auto) >30 H (0-5) /lpf Urine Bacteria (Auto) 4+ H (Negative) 04/27/21 Range/Units 16:00 Hgb (12.0-16.0) g/dL Hct (37-47) % MCH (25-34) pg MCHC (32-36) g/dL RDW Coeff of Kayli (11.5-14.5) % MPV (7.4-10.4) fL Lymph # (Auto) (1.2-3.4) K/uL Glucose (70-99(Fasting)) mg/dl Troponin I 0.11 H* (0-0.04) ng/ml Globulin (2.5-4.0) gm/dl Lipase (11-82) U/L Urine Appearance (Clear) Urine Protein (Negative) Urine Ketones (Negative) Ur Leukocyte Esterase (Negative) Urine WBC (Auto) (0-5) /hpf U Epithel Cells (Auto) (0-5) /lpf Urine Bacteria (Auto) (Negative) Diagnostic Findings CT abd pelvis IV con only CLINICAL HISTORY: abd pain/distention, nausea COMPARISON STUDY: 09/16/2020 CT DOSE: 260.80 mGycm TECHNIQUE: Standard CT of the Abdomen and Pelvis was performed with IV contrast. A dose lowering technique was utilized adhering to the principles of ALARA. Contrast Volume: Optiray 320, 94 ml. The patient did not receive oral contrast. FINDINGS: Lung base: The lung bases are clear. Abdominal cavity: There is mild abdominal ascites with fluid surrounding the liver and spleen extending down the right paracolic gutter. Mild pelvic ascites also present. There is no gross abdominal mass or adenopathy. Liver: There is homogeneous attenuation of the liver parenchyma. There is no evidence for enhancing mass lesion. Spleen: There is homogeneous attenuation of the splenic parenchyma. There is no enhancing mass lesion. Pancreas: There is homogeneous attenuation of the pancreatic parenchyma. There is no evidence for mass lesion or peripancreatic fluid collection. Gall Bladder: The gallbladder is well distended with no evidence for intraluminal calculi, wall thickening or pericholecystic edema. Adrenal glands: The adrenal glands are normal in size and attenuation. There is no evidence for enhancing mass lesion. Kidneys: There is homogeneous attenuation of the renal parenchyma bilaterally. There is no evidence for renal calculus or hydronephrosis. There is no evidence for enhancing mass. Bowel: There is a small hiatal hernia. There is moderate dilatation of the small bowel loops to the level of the left lower quadrant. The distal small bowel loops are decompressed. No focal site of obstruction is seen. However, the findings are characteristic of a partial small bowel obstruction. There is prominent fecal material seen within the colon. Findings represent moderate fecal stasis. There is no evidence for an inflamed appendix. There are no inflammatory changes present. There is no evidence for free air. Bladder: The bladder is within normal limits with no evidence for focal mass, ca lculus or diverticulum. : There is no evidence for pelvic mass or adenopathy. There is mild pelvic ascites present. Vasculature: There is no evidence for aneurysmal dilatation of the abdominal aor ta. Atherosclerotic calcification is present. Osseous structures: There is no acute osseous pathology. Degenerative changes are seen within the spine. IMPRESSION: 1. Evidence for partial small bowel obstruction most likely within the left lower quadrant. However, a focal site of transition is not identified. 2. Moderate fecal stasis. 3. Small hiatal hernia. 4. Mild abdominal and pelvic ascites. 5. Additional nonacute findings are delineated above.
[2021-04-27] MEDS ORDERED: SOD PHOSPHATE/SOD BIPHOSPHATE ENEMA 132 ML BTL PR STA ×2 (21:05→23:47)
[2021-04-28] MEDS: ACETAMINOPHEN 65 ML IV SCH ×4 (00:10→22:22)
[2021-04-28] MEDS: ONDANSETRON INJ 2 MG/ML 2 ML VIAL IV PRN ×3 (00:16→22:14)
[2021-04-28] MEDS: LACTATED RINGER'S 1,000 ML IV SCH ×3 (05:58→22:44)
[2021-04-28 06:40] LABS: Hematocrit (blood only) 36.9 % (37-47); Hemoglobin 11.2 g/dL (12.0-16.0); Immature Granulocytes # (auto) 0.02 K/uL (0.00-0.02); Immature Granulocytes % (auto) 0.3 %; Lymphocytes # (auto) 1.06 K/uL (1.2-3.4); Lymphocytes % (auto) 13.4 %; Mean Corpuscular Hemoglobin 24.8 pg (25-34); Mean Corpuscular Hgb Conc 30.4 g/dL (32-36); Mean Corpuscular Volume 81.6 fL (80-100); Mean Platelet Volume 10.9 fL (7.4-10.4); Monocytes % (auto) 11.4 %; Neutrophils # (auto) 5.92 K/uL (1.4-6.5); Neutrophils % (auto) 74.9 %; Platelet Count 294 K/uL (130-400); RDW Coefficient of Variation 15.3 % (11.5-14.5); Red Blood Count 4.52 M/uL (4.2-5.4)
[2021-04-28 07:05] LABS: BUN Creatinine Ratio 20.4 (10-20); Calcium 8.2 mg/dl (8.5-10.1); Creatinine Clr Calc Pharmacy 29.4 ml/min; Est GFR (Non-African American) 55.3 ml/min; Potassium 4.2 mmol/L (3.5-5.1)
[2021-04-28] MEDS: cefTRIAXone SODIUM 1,000 MG in DEXTROSE 5% 50 ML IV SCH (08:11)
--- NOTE | 2021-04-28 12:32 | XRay Report ---
XR KUB/Abdomen 1 view CLINICAL HISTORY: partial SBO TECHNIQUE: 1 view of the abdomen was obtained. Comparison: Comparison is made to CT abdomen pelvis 04/27/2021 FINDINGS: Lung bases are unremarkable. The osseous structures are grossly unremarkable. Prominent loops of smal l bowel are seen measuring up to 3.0 cm in diameter. A moderate amount of stool is noted within the l arge bowel. IMPRESSION: Prominent loops of small bowel are seen which may represent ileus or developing/partial small bowel o bstruction. ACT 112: Negative or not required by law. Electronically signed by: Edis Guerrero M.D. 04/28/2021 12:31 PM
--- NOTE | 2021-04-28 13:57 | Hospitalist Progress Note ---
Date of Service April 28, 2021 Assessment & Plan (1) Partial small bowel obstruction: Plan: continue conservative management s/p enema x 2 yesterday. will continue daily dulcolax suppository Does not need NGT currently and would avoid NGT if possible with her history of fundoplication (2) Elevated troponin: Plan: -denies chest pain, shortness of breath -TTE no wall motion abnormalities (3) Repeated falls: Plan: will order PT/OT (4) Urinary tract infection symptoms: Plan: -continue with ceftriaxone while waiting on urine culture Plan: DVT ppx -with no imminent plan for surgery, will start SQ lovenox. Admission and Anticipated Discharge Date Admission Date: April 27, 2021 Subjective Had 2 tap water enemas yesterday with resulting "rabbit pellet" stools Passed flatus after her enemas but has not since Abdomen still feels sore but less so Some nausea but no vomiting Physical Exam Physical Exam: thin, frail, elderly Respiratory: breathing comfortably on room air, no wheezing/rhonchi/rales Cardiovascular: regular rate and rhythm, no murmurs/rubs/gallops Gastrointestinal (Abdomen): +hypoactive, +diffusely tender, no rebound, no distension Musculoskeletal: no edema Neurologic: awake, alert, spontaneously moving extremities Results & Data Results & Data ([facility]) Vital Signs (Past 12 Hours) Vital Signs Temp Pulse Resp BP BP Pulse Ox 04/28/21 11:12 36.7 C 82 15 137/87 96 04/28/21 07:36 36.7 C 83 14 124/77 95 04/28/21 03:45 36.6 C 74 18 132/80 96 Laboratory Results Short CBC 04/28/21 Range/Units 06:17 WBC 7.90 (4.8-10.8) K/uL Hgb 11.2 L (12.0-16.0) g/dL Hct 36.9 L (37-47) % Plt Count 294 (130-400) K/uL BMP 04/28/21 06:17 Sodium 134 L Potassium 4.2 Chloride 99 Carbon Dioxide 27 BUN 19 Creatinine 0.93 Glucose 105 H Calcium 8.2 L Cardiac Enzymes 04/27/21 04/27/21 Range/Units 16:00 22:32 Troponin I 0.11 H* 0.33 H* (0-0.04) ng/ml Medications Administered Current Inpatient Medications Lactated Ringer's (Lr) 1,000 mls @ 125 mls/hr IV .Q8H MAREN Stop: 05/27/21 09:44 Last Admin: 04/28/21 05:58 Dose: 125 mls/hr Documented by: Acetaminophen (Ofirmev) 65 mls @ 260 mls/hr IV Q8H MAREN Stop: 04/30/21 13:59 Last Infusion: 04/28/21 08:11 Dose: Infused Documented by: Ceftriaxone Sodium 1,000 mg/ (Dextrose) 60 mls @ 100 mls/hr IV DAILY [facility]; Protocol Stop: 05/03/21 08:59 Last Infusion: 04/28/21 10:02 Dose: Infused Documented by: Morphine Sulfate (Morphine Sulfate 2 Mg/Ml Carp) 2 mg IV Q4H PRN PRN Reason: Pain Stop: 05/11/21 15:56 Last Admin: 04/27/21 17:02 Dose: 2 mg Documented by: Nitroglycerin (Nitroglycerin Sl 0.4 Mg/Tab Tab) 0.4 mg SL UD PRN PRN Reason: Chest Pain Stop: 05/27/21 15:52 Ondansetron HCl (Ondansetron Inj 2 Mg/Ml 2 Ml Vial) 4 mg IV Q6H PRN PRN Reason: Nausea And Vomiting Stop: 05/27/21 15:52 Last Admin: 04/28/21 00:16 Dose: 4 mg Documented by:
--- NOTE | 2021-04-28 14:23 | Surgery Progress Note ---
Date of Service April 28, 2021 Assessment & Plan (1) Partial small bowel obstruction: Plan: PSBO vs Ileus Fecal retention in colon KUB today showing small bowel distention up to 3 cm with moderate stool burden in colon (last bowel movement 9 days ago) Plan: No acute surgical intervention recommended at this time, continue conservative treatment given the mild nausea and distention would recommend continuing NPO status Bowel regimen per medicine team given stool burden in colon ambulate with assistance Dr. Vicente covering this weekend Dr. Russell was present during my examination and agrees with above. Admission and Anticipated Discharge Date Admission Date: April 27, 2021 Subjective feeling better today , severe pain that she was having yesterday is gone had small rabbit like pellets of stool after enema, passed gas with enema but none since mild nausea, no vomiting generalized pain but feels full when sitting up from lying in bed Physical Exam Constitutional: WD/WN, vitals as above Respiratory: normal respiratory effort; no respiratory distress Gastrointestinal (Abdomen): Inspection/Auscultation: + abdomen distended (mildly), + abdominal surgical scar (midline laparotomy scar) and + hypoactive bowel sounds; + abnormal bowel sounds Percussion/Palpation: + abdomen tender (generalized tenderness) and abdomen soft; no guarding and abdomen not rigid Skin: no rashes, warm and dry Psychiatric: Orientation: alert and oriented x 3 Results & Data ([facility]) Vital Signs (Past 12 Hours) Vital Signs Temp Pulse Resp BP BP Pulse Ox 04/28/21 11:12 36.7 C 82 15 137/87 96 04/28/21 07:36 36.7 C 83 14 124/77 95 04/28/21 03:45 36.6 C 74 18 132/80 96 Laboratory Results 04/28/21 04/28/21 04/27/21 Range/Units 06:17 06:17 22:32 WBC 7.90 (4.8-10.8) K/uL RBC 4.52 (4.2-5.4) M/uL Hgb 11.2 L (12.0-16.0) g/dL Hct 36.9 L (37-47) % MCV 81.6 (80-100) fL MCH 24.8 L (25-34) pg MCHC 30.4 L (32-36) g/dL RDW Std Deviation 45.0 (36.4-46.3) fL RDW Coeff of Kayli 15.3 H (11.5-14.5) % Plt Count 294 (130-400) K/uL MPV 10.9 H (7.4-10.4) fL Immature Gran % (Auto) 0.3 % Neut % (Auto) 74.9 % Lymph % (Auto) 13.4 % Caldwell % (Auto) 11.4 % Eos % (Auto) 0.0 % Baso % (Auto) 0.0 % Neut # (Auto) 5.92 (1.4-6.5) K/uL Lymph # (Auto) 1.06 L (1.2-3.4) K/uL Caldwell # (Auto) 0.90 H (0.11-0.59) K/uL Eos # (Auto) 0.00 (0-0.5) K/uL Baso # (Auto) 0.00 (0-0.2) K/uL Immature Gran # (Auto) 0.02 (0.00-0.02) K/uL Sodium 134 L (136-145) mmol/L Potassium 4.2 (3.5-5.1) mmol/L Chloride 99 (98-107) mmol/L Carbon Dioxide 27 (21-32) mmol/L Anion Gap 8 (3-11) BUN 19 (6-23) mg/dl Creatinine 0.93 (0.6-1.2) mg/dl Est Cr Clr Drug Dosing 29.4 ml/min Est GFR ( Amer) 64.0 ml/min Est GFR (Non-Af Amer) 55.3 ml/min BUN/Creatinine Ratio 20.4 H (10-20) Glucose 105 H (70-99(Fasting)) mg/dl Calcium 8.2 L (8.5-10.1) mg/dl Troponin I 0.33 H* (0-0.04) ng/ml 04/27/21 Range/Units 16:00 WBC (4.8-10.8) K/uL RBC (4.2-5.4) M/uL Hgb (12.0-16.0) g/dL Hct (37-47) % MCV (80-100) fL MCH (25-34) pg MCHC (32-36) g/dL RDW Std Deviation (36.4-46.3) fL RDW Coeff of Kayli (11.5-14.5) % Plt Count (130-400) K/uL MPV (7.4-10.4) fL Immature Gran % (Auto) % Neut % (Auto) % Lymph % (Auto) % Caldwell % (Auto) % Eos % (Auto) % Baso % (Auto) % Neut # (Auto) (1.4-6.5) K/uL Lymph # (Auto) (1.2-3.4) K/uL Caldwell # (Auto) (0.11-0.59) K/uL Eos # (Auto) (0-0.5) K/uL Baso # (Auto) (0-0.2) K/uL Immature Gran # (Auto) (0.00-0.02) K/uL Sodium (136-145) mmol/L Potassium (3.5-5.1) mmol/L Chloride (98-107) mmol/L Carbon Dioxide (21-32) mmol/L Anion Gap (3-11) BUN (6-23) mg/dl Creatinine (0.6-1.2) mg/dl Est Cr Clr Drug Dosing ml/min Est GFR ( Amer) ml/min Est GFR (Non-Af Amer) ml/min BUN/Creatinine Ratio (10-20) Glucose (70-99(Fasting)) mg/dl Calcium (8.5-10.1) mg/dl Troponin I 0.11 H* (0-0.04) ng/ml Diagnostic Findings XR KUB/Abdomen 1 view CLINICAL HISTORY: partial SBO TECHNIQUE: 1 view of the abdomen was obtained. Comparison: Comparison is made to CT abdomen pelvis 04/27/2021 FINDINGS: Lung bases are unremarkable. The osseous structures are grossly unremarkable. Prominent loops of small bowel are seen measuring up to 3.0 cm in diameter. A moderate amount of stool is noted within the large bowel. IMPRESSION: Prominent loops of small bowel are seen which may represent ileus or developing/partial small bowel obstruction.
--- NOTE | 2021-04-28 17:05 | Electrocardiogram Report ---
Test Reason : Blood Pressure : / mmHG Vent. Rate : 076 BPM Atrial Rate : 076 BPM P-R Int : 146 ms QRS Dur : 074 ms QT Int : 422 ms P-R-T Axes : 072 004 066 degrees QTc Int : 474 ms Normal sinus rhythm Normal ECG When compared with ECG of 27-APR-2021 09:50, No significant change was found Confirmed by Jose Oakes [id number]) on 04/28/2021 5:04:58 PM Referred By: REFERRED SELF Confirmed By:Jose Oakes
[2021-04-28] MEDS: ENOXAPARIN INJ 30 MG/0.3 ML SYR SQ SCH (22:10)
--- NOTE | 2021-04-29 05:00 | Surgery Progress Note ---
Date of Service April 29, 2021 Assessment & Plan (1) Partial small bowel obstruction: Plan: Patient has been admitted by the medical service. We recommend proceeding as follows: Due to nausea vomiting we will repeat a KUB this morning. Of note yesterday's KUB showed fecal retention in the colon and findings concerning for either an ileus or partial small bowel obstruction Maintain n.p.o. status until return of bowel function Provide antiemetics Continue IV fluids until oral intake can be advanced Lovenox is in place for DVT prevention as above. no change in status. currently no pain. cont npo/ivf. if no improvement by tomorrow may need t/c sbft no urgent indication for surgical intervention. Admission and Anticipated Discharge Date Admission Date: April 27, 2021 Subjective Patient is resting comfortably in bed. She does note some abdominal pain in a diffuse pattern without modifying factors. In addition the patient reports nausea without vomiting. She denies any bowel movement or flatus over the past 24 hours. Physical Exam Gastrointestinal (Abdomen): Patient's abdomen is mildly distended. There is pain noted with palpation which appears to be greatest on the left side of her abdomen but again is present in a generalized fashion. There is no rebound tenderness or guarding. Bowel sounds are absent to hypoactive. Results & Data ([facility]) Vital Signs (Past 12 Hours) Vital Signs Temp Pulse Pulse Resp BP Pulse Ox 04/29/21 03:29 36.9 C 82 20 145/74 H 95 04/28/21 23:23 36.8 C 84 20 150/89 H 97 04/28/21 22:30 83 04/28/21 19:43 37.0 C 79 20 135/78 96 PG Care Time/CCT Total # of Minutes Spent Total Time Spent with Patient: Total time spent is greater than 50% in coordination of care (as documented) at patient's floor/unit and/or counseling patient: Coding Level of Care Code 20416 Subseq Hosp Care Lvl 2 Diagnoses Partial small bowel obstruction K56.600
[2021-04-29 06:12] LABS: Basophils # (auto) 0.01 K/uL (0-0.2); Basophils % (auto) 0.2 %; Eosinophils # (auto) 0.06 K/uL (0-0.5); Hematocrit (blood only) 31.8 % (37-47); Hemoglobin 9.6 g/dL (12.0-16.0); Immature Granulocytes # (auto) 0.01 K/uL (0.00-0.02); Immature Granulocytes % (auto) 0.2 %; Lymphocytes # (auto) 0.76 K/uL (1.2-3.4); Lymphocytes % (auto) 12.4 %; Mean Corpuscular Hemoglobin 24.8 pg (25-34); Mean Corpuscular Hgb Conc 30.2 g/dL (32-36); Mean Corpuscular Volume 82.2 fL (80-100); Mean Platelet Volume 10.5 fL (7.4-10.4); Monocytes # (auto) 0.61 K/uL (0.11-0.59); Monocytes % (auto) 9.9 %; Neutrophils # (auto) 4.69 K/uL (1.4-6.5); Neutrophils % (auto) 76.3 %; Platelet Count 210 K/uL (130-400); RDW Coefficient of Variation 15.4 % (11.5-14.5); RDW Standard Deviation 46.3 fL (36.4-46.3); Red Blood Count 3.87 M/uL (4.2-5.4); White Blood Count 6.14 K/uL (4.8-10.8)
[2021-04-29] MEDS: ACETAMINOPHEN 65 ML IV SCH ×3 (06:36→21:43)
[2021-04-29] MEDS: LACTATED RINGER'S 1,000 ML IV SCH ×2 (06:42→13:26)
[2021-04-29 06:46] LABS: Troponin I 0.08 ng/ml (0-0.04)
[2021-04-29 06:51] LABS: Albumin Globulin Ratio 1.7 (0.9-2); Bilirubin,Total 0.5 mg/dl (0.2-1.0); Calcium 7.7 mg/dl (8.5-10.1); Creatinine Clr Calc Pharmacy 37.5 ml/min; Est GFR (African American) 85.8 ml/min; Est GFR (Non-African American) 74.1 ml/min; Globulin 1.8 gm/dl (2.5-4.0); Magnesium 1.9 mg/dl (1.7-2.4); Potassium 3.8 mmol/L (3.5-5.1); Total Protein 4.8 gm/dl (6.0-8.3)
--- NOTE | 2021-04-29 08:55 | XRay Report ---
KUB CLINICAL HISTORY: Small bowel obstruction. FINDINGS: An AP, portable, supine abdominal radiograph is compared to study dated 04/28/2021 and corre lated with abdominal CT dated 04/27/2021. There is evidence of persistent small bowel obstruction, wit h small bowel loops measuring up to 3.5 cm diameter. Gas and stool are also seen in the colon. Indete rminant foci of gas is question in the upper abdomen. Numerous phleboliths are seen in the pelvis. Th e skeletal structures are osteopenic and appear intact. There is advanced lumbosacral spondylosis and scoliosis. IMPRESSION: 1. Persistent small bowel obstruction. 2. Indeterminant foci of gas are questioned in the upper abdomen. This is not well assessed due to [place] positioning. Correlate with a decubitus or upright radiograph for evidence of intraperitoneal fr ee air. Electronically signed by: Bharathi Alfonso M.D. 04/29/2021 8:54 AM
[2021-04-29] MEDS: bisacodyL 10 MG SUPP PR SCH (09:19)
[2021-04-29] MEDS: cefTRIAXone SODIUM 1,000 MG in DEXTROSE 5% 50 ML IV SCH (09:19)
--- NOTE | 2021-04-29 12:39 | XRay Report ---
AP CHEST WITH ABDOMINAL SERIES CLINICAL HISTORY: Follow-up abnormal abdominal radiograph. Assess for intraperitoneal free air. FINDINGS: An AP upright chest radiograph is compared to study dated 03/05/2018. The heart is enlarged. The pulm onary vasculature is noncongested. Chronic interstitial thickening is similar to previous. There is e levation of the left hemidiaphragm with bibasilar scarring/atelectasis. No airspace consolidation or pleural effusion is identified. No pneumothorax is seen. The skeletal structures are osteopenic. The bony thorax is grossly intact. Supine and erect abdominal radiographs are compared to study performed earlier the same day 04/29/2021 and correlated with abdominal CT dated 04/27/2021. There is moderate colonic fecal retention. Distend ed loops of small bowel measure up to 3.5 cm diameter and indicate persistent obstruction. No evidenc e of intraperitoneal free air is seen. There are no abnormal abdominal calcifications. Numerous phleb oliths are seen throughout the pelvis. The lumbosacral spine and bony pelvis appear intact. There is advanced lumbosacral spondylosis and scoliosis. IMPRESSION: 1. Cardiomegaly with no active disease in the chest. 2. There is evidence of persistent small bowel obstruction. 3. No evidence of intraperitoneal free air is identified. ACT 112: Negative or not required by law. Electronically signed by: Bharathi Alfonso M.D. 04/29/2021 12:38 PM
--- NOTE | 2021-04-29 13:01 | Hospitalist Progress Note ---
Date of Service April 29, 2021 Assessment & Plan (1) Partial small bowel obstruction: Plan: continue conservative management s/p enema x 2 continue with dulcolax suppository maintain NPO state Abd X ray negative for free air, shows persistent SBO continue NSS at 80cc/hr while NPO (2) Elevated troponin: Plan: -denies chest pain, shortness of breath -TTE no wall motion abnormalities (3) Repeated falls: Plan: PT/OT ordered (4) Urinary tract infection symptoms: Plan: -Pansensitive E coli -on ceftriaxone, plan for 3 day course Plan: DVT ppx -SQ lovenox Admission and Anticipated Discharge Date Admission Date: April 27, 2021 Results & Data Results & Data ([facility]) Vital Signs (Past 12 Hours) Vital Signs Temp Pulse Resp BP BP Pulse Ox 04/29/21 11:29 36.7 C 77 19 154/83 H 96 04/29/21 07:37 36.8 C 83 19 130/74 96 04/29/21 03:29 36.9 C 82 20 145/74 H 95 Laboratory Results Short CBC 04/29/21 Range/Units 05:54 WBC 6.14 (4.8-10.8) K/uL Hgb 9.6 L (12.0-16.0) g/dL Hct 31.8 L (37-47) % Plt Count 210 (130-400) K/uL BMP 04/29/21 05:54 Sodium 136 Potassium 3.8 Chloride 102 Carbon Dioxide 27 BUN 19 Creatinine 0.73 Glucose 72 Calcium 7.7 L Cardiac Enzymes 04/29/21 Range/Units 05:54 Troponin I 0.08 H* (0-0.04) ng/ml Liver Function 04/29/21 Range/Units 05:54 Total Bilirubin 0.5 (0.2-1.0) mg/dl AST 14 (13-39) U/L ALT 7 (7-52) U/L Alkaline Phosphatase 53 (34-104) U/L Albumin 3.0 L (3.4-5.0) gm/dl Medications Administered Current Inpatient Medications Bisacodyl (Bisacodyl 10 Mg Supp) 10 mg LA DAILY MAREN Stop: 05/29/21 08:59 Last Admin: 04/29/21 09:19 Dose: 10 mg Documented by: Enoxaparin Sodium (Enoxaparin Inj 30 Mg/0.3 Ml Syr) 30 mg SQ HS MAREN; Protocol Stop: 05/28/21 20:59 Last Admin: 04/28/21 22:10 Dose: 30 mg Documented by: Lactated Ringer's (Lr) 1,000 mls @ 125 mls/hr IV .Q8H MAREN Stop: 05/27/21 09:44 Last Admin: 04/29/21 06:42 Dose: 125 mls/hr Documented by: Acetaminophen (Ofirmev) 65 mls @ 260 mls/hr IV Q8H MARNE Stop: 04/30/21 13:59 Last Infusion: 04/29/21 06:58 Dose: Infused Documented by: Ceftriaxone Sodium 1,000 mg/ (Dextrose) 60 mls @ 100 mls/hr IV DAILY [facility]; Protocol Stop: 05/03/21 08:59 Last Infusion: 04/29/21 10:42 Dose: Infused Documented by: Morphine Sulfate (Morphine Sulfate 2 Mg/Ml Carp) 2 mg IV Q4H PRN PRN Reason: Pain Stop: 05/11/21 15:56 Last Admin: 04/27/21 17:02 Dose: 2 mg Documented by: Nitroglycerin (Nitroglycerin Sl 0.4 Mg/Tab Tab) 0.4 mg SL UD PRN PRN Reason: Chest Pain Stop: 05/27/21 15:52 Ondansetron HCl (Ondansetron Inj 2 Mg/Ml 2 Ml Vial) 4 mg IV Q6H PRN PRN Reason: Nausea And Vomiting Stop: 05/27/21 15:52 Last Admin: 04/28/21 22:14 Dose: 4 mg Documented by:
[2021-04-29] MEDS: D5W AND LACTATED RINGERS 1,000 ML IV SCH (15:48)
[2021-04-29] MEDS: ENOXAPARIN INJ 30 MG/0.3 ML SYR SQ SCH (21:43)
[2021-04-30] MEDS: D5W AND LACTATED RINGERS 1,000 ML IV SCH ×2 (04:39→23:12)
[2021-04-30] MEDS: ACETAMINOPHEN 65 ML IV SCH (05:59)
--- NOTE | 2021-04-30 06:24 | Surgery Progress Note ---
Date of Service April 30, 2021 Assessment & Plan (1) Partial small bowel obstruction: Plan: Patient has been admitted by the medical service. Continue care as follows: Although patient is passing flatus we will maintain n.p.o. status for the present time until bowel function has improved Continue IV fluids until diet advanced and oral intake deemed adequate Continue antiemetics Continue analgesics If further improvement does not continue consideration may be given to performing a small bowel follow-through Lovenox is in place for DVT prevention as above. pain improved since admission. no nausea currently. small bm this morning and does have bs's. continue conservative management. if no significant improvement by tomorrow would recommend SBFT. pt currently in no distress. Admission and Anticipated Discharge Date Admission Date: April 27, 2021 Subjective Patient is resting comfortably in bed. Patient says she continues to have some intermittent nausea but has not had any emesis. She continues to have some slight abdominal pain which is somewhat improved from yesterday. She denies having bowel movement but did have a small amount of flatus yesterday. Physical Exam Gastrointestinal (Abdomen): Abdomen is soft and nondistended. Bowel sounds are hypoactive to absent. Patient did have some pain with palpation greatest in the left side of her abdomen. Results & Data ([facility]) Vital Signs (Past 12 Hours) Vital Signs Temp Pulse Pulse Resp BP BP Pulse Ox 04/30/21 03:46 36.5 C 66 18 145/76 H 95 04/29/21 23:21 36.8 C 72 18 143/56 H 97 04/29/21 22:30 70 04/29/21 19:47 36.8 C 76 20 133/68 98 PG Care Time/CCT Total # of Minutes Spent Total Time Spent with Patient: Total time spent is greater than 50% in coordination of care (as documented) at patient's floor/unit and/or counseling patient: Coding Level of Care Code 29119 Subseq Hosp Care Lvl 2 Diagnoses Partial small bowel obstruction K56.600
[2021-04-30 07:36] LABS: Basophils # (auto) 0.02 K/uL (0-0.2); Basophils % (auto) 0.7 %; Eosinophils # (auto) 0.12 K/uL (0-0.5); Eosinophils % (auto) 3.9 %; Hematocrit (blood only) 27.9 % (37-47); Hemoglobin 8.3 g/dL (12.0-16.0); Immature Granulocytes # (auto) 0.01 K/uL (0.00-0.02); Immature Granulocytes % (auto) 0.3 %; Lymphocytes # (auto) 0.63 K/uL (1.2-3.4); Lymphocytes % (auto) 20.6 %; Mean Corpuscular Hemoglobin 25.2 pg (25-34); Mean Corpuscular Hgb Conc 29.7 g/dL (32-36); Mean Corpuscular Volume 84.5 fL (80-100); Mean Platelet Volume 10.5 fL (7.4-10.4); Monocytes # (auto) 0.33 K/uL (0.11-0.59); Monocytes % (auto) 10.8 %; Neutrophils # (auto) 1.95 K/uL (1.4-6.5); Neutrophils % (auto) 63.7 %; Platelet Count 187 K/uL (130-400); RDW Coefficient of Variation 15.5 % (11.5-14.5); RDW Standard Deviation 48.2 fL (36.4-46.3); White Blood Count 3.06 K/uL (4.8-10.8)
[2021-04-30 08:09] LABS: Albumin Globulin Ratio 1.6 (0.9-2); Albumin Level 2.8 gm/dl (3.4-5.0); BUN Creatinine Ratio 19.7 (10-20); Bilirubin,Total 0.3 mg/dl (0.2-1.0); Calcium 7.6 mg/dl (8.5-10.1); Creatinine Clr Calc Pharmacy 41.3 ml/min; Est GFR (African American) 92.1 ml/min; Est GFR (Non-African American) 79.4 ml/min; Globulin 1.8 gm/dl (2.5-4.0); Magnesium 1.8 mg/dl (1.7-2.4); Phosphorus 2.1 mg/dl (2.5-4.9); Potassium 3.3 mmol/L (3.5-5.1); Total Protein 4.6 gm/dl (6.0-8.3)
[2021-04-30] MEDS ORDERED: POTASSIUM PHOS 3 MMOL/1 ML INFUSION IV STA (08:29)
[2021-04-30] MEDS: bisacodyL 10 MG SUPP PR SCH (08:46)
[2021-04-30] MEDS: POTASSIUM CHLORIDE / WTR 10 MEQ/100 ML PLCT IV SCH ×2 (08:47→11:00)
[2021-04-30] MEDS: cefTRIAXone SODIUM 1,000 MG in DEXTROSE 5% 50 ML IV SCH (08:51)
[2021-04-30] MEDS: POTASSIUM PHOSPHATE 15 MMOL in DEXTROSE 5% 250 ML IV ONE ×2 (13:20→15:00)
--- NOTE | 2021-04-30 15:29 | Hospitalist Progress Note ---
Date of Service April 30, 2021 Assessment & Plan (1) Partial small bowel obstruction: Plan: continue conservative management s/p enema x 2. continue with dulcolax suppository Abd X 04/29 ray negative for free air, shows persistent SBO continue NSS at 80cc/hr while NPO Appreciate Surgery input. Maintain NPO state (2) Elevated troponin: Plan: -denies chest pain, shortness of breath -TTE no wall motion abnormalities (3) Repeated falls: Plan: PT/OT ordered (4) Urinary tract infection symptoms: Plan: -Pansensitive E coli -on ceftriaxone, plan for 3 day course Plan: DVT ppx -SQ lovenox Hypokalemia Hypophosphatemia -repleted today, repeat BMP tomorrow Admission and Anticipated Discharge Date Admission Date: April 27, 2021 Subjective with help of nurse, patient ambulated around yesterday BM this morning "small pellet" Had one episode of flatus Still with abdominal discomfort Physical Exam Physical Exam: thin, frail, elderly Respiratory: breathing comfortably on room air, no wheezing/rhonchi/rales Cardiovascular: regular rate and rhythm, no murmurs/rubs Gastrointestinal (Abdomen): Hypoactive, non distended, generalized discomfort Musculoskeletal: no edema, no cyanosis Neurologic: awake, alert, spontaneously moving extremities Results & Data Results & Data ([facility]) Vital Signs (Past 12 Hours) Vital Signs Temp Pulse Pulse Resp BP Pulse Ox 04/30/21 14:45 36.9 C 75 20 158/80 H 96 04/30/21 11:36 36.4 C L 61 20 156/64 H 97 04/30/21 08:30 66 04/30/21 07:25 36.5 C 69 20 126/61 96 04/30/21 03:46 36.5 C 66 18 145/76 H 95 Laboratory Results Short CBC 04/30/21 Range/Units 07:07 WBC 3.06 L (4.8-10.8) K/uL Hgb 8.3 L (12.0-16.0) g/dL Hct 27.9 L (37-47) % Plt Count 187 (130-400) K/uL BMP 04/30/21 07:07 Sodium 138 Potassium 3.3 L Chloride 104 Carbon Dioxide 31 BUN 13 Creatinine 0.66 Glucose 89 Calcium 7.6 L Liver Function 04/30/21 Range/Units 07:07 Total Bilirubin 0.3 (0.2-1.0) mg/dl AST 14 (13-39) U/L ALT 6 L (7-52) U/L Alkaline Phosphatase 47 (34-104) U/L Albumin 2.8 L (3.4-5.0) gm/dl Medications Administered Current Inpatient Medications Bisacodyl (Bisacodyl 10 Mg Supp) 10 mg [place] DAILY MAREN Stop: 05/29/21 08:59 Last Admin: 04/30/21 08:46 Dose: 10 mg Documented by: Enoxaparin Sodium (Enoxaparin Inj 30 Mg/0.3 Ml Syr) 30 mg SQ HS [facility]EN; Protocol Stop: 05/28/21 20:59 Last Admin: 04/29/21 21:43 Dose: 30 mg Documented by: Ceftriaxone Sodium 1,000 mg/ (Dextrose) 60 mls @ 100 mls/hr IV DAILY [facility]; Protocol Stop: 04/30/21 23:59 Last Infusion: 04/30/21 09:30 Dose: Infused Documented by: Dextrose/Lactated Ringer's (D5w And Lactated Ringers) 1,000 mls @ 80 mls/hr IV .[id number] MAREN Stop: 05/02/21 13:14 Last Admin: 04/30/21 04:39 Dose: 80 mls/hr Documented by: Morphine Sulfate (Morphine Sulfate 2 Mg/Ml Carp) 2 mg IV Q4H PRN PRN Reason: Pain Stop: 05/11/21 15:56 Last Admin: 04/27/21 17:02 Dose: 2 mg Documented by: Nitroglycerin (Nitroglycerin Sl 0.4 Mg/Tab Tab) 0.4 mg SL UD PRN PRN Reason: Chest Pain Stop: 05/27/21 15:52 Ondansetron HCl (Ondansetron Inj 2 Mg/Ml 2 Ml Vial) 4 mg IV Q6H PRN PRN Reason: Nausea And Vomiting Stop: 05/27/21 15:52 Last Admin: 04/28/21 22:14 Dose: 4 mg Documented by:
[2021-04-30] MEDS: MoRPHine SULFATE 2 MG/ML CARP IV PRN (17:50)
[2021-04-30] MEDS: ONDANSETRON INJ 2 MG/ML 2 ML VIAL IV PRN (17:50)
[2021-04-30] MEDS: ENOXAPARIN INJ 30 MG/0.3 ML SYR SQ SCH (20:54)
[2021-05-01 08:15] LABS: Basophils # (auto) 0.02 K/uL (0-0.2); Basophils % (auto) 0.7 %; Eosinophils # (auto) 0.12 K/uL (0-0.5); Eosinophils % (auto) 4.3 %; Hematocrit (blood only) 27.4 % (37-47); Hemoglobin 8.2 g/dL (12.0-16.0); Immature Granulocytes # (auto) 0.01 K/uL (0.00-0.02); Immature Granulocytes % (auto) 0.4 %; Lymphocytes # (auto) 0.75 K/uL (1.2-3.4); Lymphocytes % (auto) 26.7 %; Mean Corpuscular Hemoglobin 25.1 pg (25-34); Mean Corpuscular Hgb Conc 29.9 g/dL (32-36); Mean Corpuscular Volume 83.8 fL (80-100); Mean Platelet Volume 10.3 fL (7.4-10.4); Monocytes # (auto) 0.29 K/uL (0.11-0.59); Monocytes % (auto) 10.3 %; Neutrophils # (auto) 1.62 K/uL (1.4-6.5); Neutrophils % (auto) 57.6 %; Platelet Count 181 K/uL (130-400); RDW Coefficient of Variation 15.7 % (11.5-14.5); RDW Standard Deviation 47.7 fL (36.4-46.3); Red Blood Count 3.27 M/uL (4.2-5.4); White Blood Count 2.81 K/uL (4.8-10.8)
[2021-05-01] MEDS: bisacodyL 10 MG SUPP PR SCH (08:23)
[2021-05-01 08:38] LABS: Albumin Globulin Ratio 1.8 (0.9-2); Albumin Level 2.8 gm/dl (3.4-5.0); BUN Creatinine Ratio 13.1 (10-20); Bilirubin,Total 0.3 mg/dl (0.2-1.0); Calcium 7.6 mg/dl (8.5-10.1); Creatinine Clr Calc Pharmacy 44.7 ml/min; Est GFR (African American) 94.5 ml/min; Est GFR (Non-African American) 81.5 ml/min; Globulin 1.6 gm/dl (2.5-4.0); Magnesium 1.8 mg/dl (1.7-2.4); Phosphorus 2.5 mg/dl (2.5-4.9); Potassium 3.5 mmol/L (3.5-5.1); Total Protein 4.4 gm/dl (6.0-8.3)
--- NOTE | 2021-05-01 11:48 | Surgery Progress Note ---
Date of Service May 01, 2021 Assessment & Plan (1) Partial small bowel obstruction: Plan: PSBO vs Ileus Fecal retention in colon KUB today showing small bowel distention up to 3 cm with moderate stool burden in colon (last bowel movement 9 days ago) Plan: No acute surgical intervention recommended at this time, continue conservative treatment given the mild nausea and distention would recommend continuing NPO status Bowel regimen per medicine team given stool burden in colon ambulate with assistance Dr. Vicente covering this weekend Dr. Russell was present during my examination and agrees with above. 05/01/2021 11:50AM Dr. russell F/U PSBO, not passed BM yet, I recommend to do small bowel follow -through, D/W benefits, risks and alternatives of the study, pt understood, she agrees with the study, possible surgery treatment if complete SBO, pt understood, I answered all questions, will F/U Admission and Anticipated Discharge Date Admission Date: April 27, 2021 Supervising Physician Co-Signing Physician Notes Patient is an 85-year-old female with history of degenerative joint disease, osteoporosis, GERD, and other medical problems presents with history of worsening abdominal pain since 1 day duration. Patient has history of laparoscopic Seferino fundoplication many years ago. Patient states her last bowel movement was more than a week ago. She admits to trying Dulcolax for constipation intermittently. Also reports nausea but no vomiting. Reports chills but no fever. Also denies any chest pain, shortness of breath. Please review HPI for complete details of presentation. Blood work suggestive of hemoglobin 10.7, troponin 0 0.06. Urinalysis suggestive of possible UTI. CT abdomen showed findings suggestive of partial small bowel obstruction also noted moderate fecal stasis, small hiatal hernia and mild abdominal pelvic ascites. On exam patient is elderly, ill-appearing, thin, no apparent distress, normocephalic atraumatic, EOMI, decreased breath sounds, clear to auscultation, S1-S2, no murmur, no pedal edema, abdomen distended, tender, decreased bowel sounds, voluntary guarding, alert, awake, oriented, grossly no focal deficits. Patient is admitted for management of partial small bowel obstruction. Also noted mild elevation of troponin likely secondary to elevated blood pressure. Urinalysis concerning for UTI. We will keep her n.p.o. for now. Pain control. IV fluids. Surgery consulted. Will give tap water enema for fecal stasis. Consider NG tube placement if needed. Agree with trending cardiac enzymes, check echo and repeat EKG in the morning. I personally reviewed the record. Patient is interviewed and examined at bedside. Patient's care is coordinated with Irena Lehman PA-C. Please refer to the documentation above for details of patient's presentation and for discussion of other issues. Subjective with help of nurse, patient ambulated around yesterday BM this morning "small pellet" Had one episode of flatus Still with abdominal discomfort 05/01/2021 11:46AM Dr. russell F/U PSBO pt has not passed BM yet, passed some gas, no vomiting, no fever, Physical Exam Constitutional: WD/WN, vitals as above Eyes: PERRL, conjunctivae normal, anicteric sclerae Neck: trachea midline, no thyromegaly Respiratory: normal respiratory effort, lungs clear to auscultation Cardiovascular: RRR, no murmur, no edema Gastrointestinal (Abdomen): soft, mild tenderness at periumbilical area, no distend, no rebound pain, BS + Neurologic: patellar DTR's 2+ bilat, sensation intact Psychiatric: A+Ox3, euthymic affect Results & Data ([facility]) Vital Signs (Past 12 Hours) Vital Signs Temp Pulse Pulse Pulse Resp BP BP 05/01/21 11:30 36.7 C 71 16 146/82 H 05/01/21 08:00 62 05/01/21 07:35 36.7 C 72 18 148/84 H 05/01/21 07:29 36.8 C 64 20 136/54 L 05/01/21 02:25 36.7 C 63 18 129/57 L 05/01/21 01:10 68 Pulse Ox 05/01/21 11:30 98 05/01/21 08:00 05/01/21 07:35 97 05/01/21 07:29 98 05/01/21 02:25 97 05/01/21 01:10 Laboratory Results Abnormal Labs 04/27/21 04/27/21 04/27/21 09:59 09:59 10:15 WBC RBC Hgb 10.7 L Hct 35.5 L MCH 24.8 L MCHC 30.1 L RDW Std Deviation RDW Coeff of Kayli 15.1 H MPV 10.5 H Lymph # (Auto) 0.48 L [place] # (Auto) Sodium Potassium BUN/Creatinine Ratio Glucose 117 H Calcium Phosphorus ALT Troponin I 0.06 H* Total Protein Albumin Globulin 2.4 L Lipase 6 L Urine Appearance Cloudy A Urine Protein 1+ H Urine Ketones 1+ H Ur Leukocyte Esterase 3+ H Urine WBC (Auto) >30 H U Epithel Cells (Auto) >30 H Urine Bacteria (Auto) 4+ H 04/27/21 04/27/21 04/28/21 16:00 22:32 06:17 WBC RBC Hgb 11.2 L Hct 36.9 L MCH 24.8 L MCHC 30.4 L RDW Std Deviation RDW Coeff of Kayli 15.3 H MPV 10.9 H Lymph # (Auto) 1.06 L [place] # (Auto) 0.90 H Sodium Potassium BUN/Creatinine Ratio Glucose Calcium Phosphorus ALT Troponin I 0.11 H* 0.33 H* Total Protein Albumin Globulin Lipase Urine Appearance Urine Protein Urine Ketones Ur Leukocyte Esterase Urine WBC (Auto) U Epithel Cells (Auto) Urine Bacteria (Auto) 04/28/21 04/29/21 04/29/21 06:17 05:54 05:54 WBC RBC 3.87 L Hgb 9.6 L Hct 31.8 L MCH 24.8 L MCHC 30.2 L RDW Std Deviation RDW Coeff of Kayli 15.4 H MPV 10.5 H Lymph # (Auto) 0.76 L [place] # (Auto) 0.61 H Sodium 134 L Potassium BUN/Creatinine Ratio 20.4 H 26.0 H Glucose 105 H Calcium 8.2 L 7.7 L Phosphorus ALT Troponin I 0.08 H* Total Protein 4.8 L D Albumin 3.0 L Globulin 1.8 L Lipase Urine Appearance Urine Protein Urine Ketones Ur Leukocyte Esterase Urine WBC (Auto) U Epithel Cells (Auto) Urine Bacteria (Auto) 04/30/21 04/30/21 05/01/21 07:07 07:07 07:44 WBC 3.06 L 2.81 L RBC 3.30 L 3.27 L Hgb 8.3 L 8.2 L Hct 27.9 L 27.4 L MCH MCHC 29.7 L 29.9 L RDW Std Deviation 48.2 H 47.7 H RDW Coeff of Kayli 15.5 H 15.7 H MPV 10.5 H Lymph # (Auto) 0.63 L 0.75 L [place] # (Auto) Sodium Potassium 3.3 L BUN/Creatinine Ratio Glucose Calcium 7.6 L Phosphorus 2.1 L ALT 6 L Troponin I Total Protein 4.6 L Albumin 2.8 L Globulin 1.8 L Lipase Urine Appearance Urine Protein Urine Ketones Ur Leukocyte Esterase Urine WBC (Auto) U Epithel Cells (Auto) Urine Bacteria (Auto) 05/01/21 07:44 WBC RBC Hgb Hct MCH MCHC RDW Std Deviation RDW Coeff of Kayli MPV Lymph # (Auto) [place] # (Auto) Sodium Potassium BUN/Creatinine Ratio Glucose Calcium 7.6 L Phosphorus ALT Troponin I Total Protein 4.4 L Albumin 2.8 L Globulin 1.6 L Lipase Urine Appearance Urine Protein Urine Ketones Ur Leukocyte Esterase Urine WBC (Auto) U Epithel Cells (Auto) Urine Bacteria (Auto) Diagnostic Findings KUB CLINICAL HISTORY: Small bowel obstruction. FINDINGS: An AP, portable, supine abdominal radiograph is compared to study dated 04/28/2021 and correlated with abdominal CT dated 04/27/2021. There is evidence of persistent small bowel obstruction, with small bowel loops measuring up to 3.5 cm diameter. Gas and stool are also seen in the colon. Indeterminant foci of gas is question in the upper abdomen. Numerous phleboliths are seen in the pelvis. The skeletal structures are osteopenic and appear intact. There is advanced lumbosacral spondylosis and scoliosis. IMPRESSION: 1. Persistent small bowel obstruction. 2. Indeterminant foci of gas are questioned in the upper abdomen. This is not well assessed due to supine positioning. Correlate with a decubitus or upright radiograph for evidence of intraperitoneal free air.
[2021-05-01] MEDS ORDERED: SOD PHOSPHATE/SOD BIPHOSPHATE ENEMA 132 ML BTL PR STA (11:54)
[2021-05-01] MEDS: D5W AND LACTATED RINGERS 1,000 ML IV SCH (12:26)
[2021-05-01] MEDS: MoRPHine SULFATE 2 MG/ML CARP IV PRN (14:19)
[2021-05-01] MEDS ORDERED: KETOROLAC TROMETHAMINE 15 MG/ML VIAL IV ONE (15:04)
--- NOTE | 2021-05-01 15:22 | Fluoroscopy Report ---
SMALL BOWEL FOLLOW THROUGH UTILIZING OPTIRAY CLINICAL HISTORY: Small bowel obstruction. COMPARISON STUDY: CT of the abdomen and pelvis April 27, 2021. Abdominal series February 26, 2022 . FLUOROSCOPY TIME: 0 seconds. FLUOROSCOPIC IMAGES: 0. Overhead images were obtained. PROCEDURE AND FINDINGS: Rubber Calender Helper image demonstrates multiple loops of dilated small bowel, similar to pr ior KUB. 2 cups of diluted Optiray were then ingested and overhead images were obtained. The proximal to mid small bowel was mildly to moderately dilated. A well-defined transition point was not identif ied. However, contrast reached the colon at 1 hour and 45 minutes. The findings suggest a partial sma ll bowel obstruction. IMPRESSION: Mild to moderate dilatation of the proximal to mid small bowel. Transition point not hannah ntified however the findings suggest a partial small bowel obstruction. Contrast reached the colon at 1 hour and 45 minutes. ACT 112: Negative or not required by law. Electronically signed by: Jj Yu M.D. 05/01/2021 3:21 PM
--- NOTE | 2021-05-01 19:59 | Hospitalist Progress Note ---
Date of Service May 01, 2021 Assessment & Plan (1) Partial small bowel obstruction: Plan: (1) Partial small bowel obstruction: Plan: continue conservative management enema x1 today. continue with dulcolax suppository Abd X 04/29 ray negative for free air, shows persistent SBO continue NSS at 80cc/hr while NPO Appreciate Surgery input. Maintain NPO state 2) Elevated troponin: Plan: -denies chest pain, shortness of breath -TTE no wall motion abnormalities (3) Repeated falls: Plan: PT/OT ordered (4) Urinary tract infection symptoms: Plan: -Pansensitive E coli -s/p ceftriaxone DVT ppx -SQ lovenox Hypokalemia Hypophosphatemia -Monitor and replete as appropriate. Admission and Anticipated Discharge Date Admission Date: April 27, 2021 Subjective Patient seen and examined at bedside for partial small bowel obstruction. Patient sitting up in bed, on room air, NAD, no new acute events overnight. Patient reports belly pain same as yesterday. Patient has not moved bowel. Patient reports belly pain as 3/10. Patient denies moving gas. Patient denies fever/headache/chills/chest pain/palpitation/other review of symptoms. Patient remains n.p.o. Physical Exam Physical Exam: GENERAL: Alert and oriented x3. NAD, on RA. HEENT: No pallor, no icterus. Pupils equal, round and reactive to light. Oral mucosa moist. NECK: No JVD, no neck masses. HEART: S1 and S2 heard. Regular rate and rhythm. No murmur, no gallop. RESPIRATORY SYSTEM: Normal AP diameter. No accessory muscle use. No wheezing, no crackles. ABDOMEN: Soft, bowel sounds present, +tender, tense. CENTRAL NERVOUS SYSTEM: No facial droop. Speech is clear. Obeys simple commands. Moves extremities. EXTREMITIES: No edema, no erythema seen. Results & Data Results & Data ([facility]) Vital Signs (Past 12 Hours) Vital Signs Temp Pulse Pulse Resp BP Pulse Ox 05/01/21 16:00 69 05/01/21 11:30 36.7 C 71 16 146/82 H 98 05/01/21 08:00 62
[2021-05-01] MEDS: ENOXAPARIN INJ 30 MG/0.3 ML SYR SQ SCH (20:11)
[2021-05-02] MEDS: D5W AND LACTATED RINGERS 1,000 ML IV SCH ×3 (00:28→12:20)
[2021-05-02 07:40] LABS: Basophils # (auto) 0.01 K/uL (0-0.2); Basophils % (auto) 0.3 %; Eosinophils # (auto) 0.15 K/uL (0-0.5); Eosinophils % (auto) 4.4 %; Hematocrit (blood only) 33.8 % (37-47); Immature Granulocytes # (auto) 0.01 K/uL (0.00-0.02); Immature Granulocytes % (auto) 0.3 %; Lymphocytes # (auto) 1.13 K/uL (1.2-3.4); Lymphocytes % (auto) 32.8 %; Mean Corpuscular Hemoglobin 25.1 pg (25-34); Mean Corpuscular Hgb Conc 29.6 g/dL (32-36); Mean Corpuscular Volume 84.9 fL (80-100); Mean Platelet Volume 10.7 fL (7.4-10.4); Monocytes # (auto) 0.24 K/uL (0.11-0.59); Neutrophils % (auto) 55.2 %; Platelet Count 233 K/uL (130-400); RDW Coefficient of Variation 15.8 % (11.5-14.5); RDW Standard Deviation 48.8 fL (36.4-46.3); Red Blood Count 3.98 M/uL (4.2-5.4); White Blood Count 3.44 K/uL (4.8-10.8)
[2021-05-02 07:54] LABS: Albumin Globulin Ratio 1.7 (0.9-2); Albumin Level 3.1 gm/dl (3.4-5.0); BUN Creatinine Ratio 12.3 (10-20); Bilirubin,Total 0.3 mg/dl (0.2-1.0); Creatinine Clr Calc Pharmacy 49.9 ml/min; Est GFR (African American) 96.6 ml/min; Est GFR (Non-African American) 83.4 ml/min; Globulin 1.8 gm/dl (2.5-4.0); Potassium 3.9 mmol/L (3.5-5.1); Total Protein 4.9 gm/dl (6.0-8.3)
[2021-05-02] MEDS: bisacodyL 10 MG SUPP PR SCH (08:45)
[2021-05-02] MEDS: POLYETHYLENE (MIRALAX) 17 GM PACK PO SCH (09:27)
[2021-05-02] MEDS: DOCUSATE SODIUM 100 MG CAP PO SCH ×2 (09:27→20:35)
[2021-05-02] MEDS: MoRPHine SULFATE 2 MG/ML CARP IV PRN (11:02)
--- NOTE | 2021-05-02 12:06 | Surgery Progress Note ---
Date of Service May 02, 2021 Assessment & Plan (1) Partial small bowel obstruction: Plan: PSBO vs Ileus Fecal retention in colon KUB today showing small bowel distention up to 3 cm with moderate stool burden in colon (last bowel movement 9 days ago) Plan: No acute surgical intervention recommended at this time, continue conservative treatment given the mild nausea and distention would recommend continuing NPO status Bowel regimen per medicine team given stool burden in colon ambulate with assistance Dr. Vicente covering this weekend Dr. Russell was present during my examination and agrees with above. 05/01/2021 11:50AM Dr. russell F/U PSBO, not passed BM yet, I recommend to do small bowel follow -through, D/W benefits, risks and alternatives of the study, pt understood, she agrees with the study, possible surgery treatment if complete SBO, pt understood, I answered all questions, will F/U 05/02/2021 12:07PMDR. Russell passed 2 times BM, clear diet, will F/U, Admission and Anticipated Discharge Date Admission Date: April 27, 2021 Supervising Physician Co-Signing Physician Notes Patient is an 85-year-old female with history of degenerative joint disease, osteoporosis, GERD, and other medical problems presents with history of worsening abdominal pain since 1 day duration. Patient has history of laparoscopic Seferino fundoplication many years ago. Patient states her last bowel movement was more than a week ago. She admits to trying Dulcolax for constipation intermittently. Also reports nausea but no vomiting. Reports chills but no fever. Also denies any chest pain, shortness of breath. Please review HPI for complete details of presentation. Blood work suggestive of hemoglobin 10.7, troponin 0 0.06. Urinalysis suggestive of possible UTI. CT abdomen showed findings suggestive of partial small bowel obstruction also noted moderate fecal stasis, small hiatal hernia and mild abdominal pelvic ascites. On exam patient is elderly, ill-appearing, thin, no apparent distress, normocephalic atraumatic, EOMI, decreased breath sounds, clear to auscultation, S1-S2, no murmur, no pedal edema, abdomen distended, tender, decreased bowel sounds, voluntary guarding, alert, awake, oriented, grossly no focal deficits. Patient is admitted for management of partial small bowel obstruction. Also noted mild elevation of troponin likely secondary to elevated blood pressure. Urinalysis concerning for UTI. We will keep her n.p.o. for now. Pain control. IV fluids. Surgery consulted. Will give tap water enema for fecal stasis. Consider NG tube placement if needed. Agree with trending cardiac enzymes, check echo and repeat EKG in the morning. I personally reviewed the record. Patient is interviewed and examined at bedside. Patient's care is coordinated with Irena Lehman PA-C. Please refer to the documentation above for details of patient's presentation and for discussion of other issues. Subjective Patient seen and examined at bedside for partial small bowel obstruction. Patient sitting up in bed, on room air, NAD, no new acute events overnight. Patient reports belly pain same as yesterday. Patient has not moved bowel. Patient reports belly pain as 3/10. Patient denies moving gas. Patient denies fever/headache/chills/chest pain/palpitation/other review of symptoms. Patient remains n.p.o. 05/02/2021 12:05PM Dr. Russell passed 2 times BM, no nausea, no vomiting, no fever, mild abdominal pain, small bowel follow through- PSBO, Physical Exam Constitutional: WD/WN, vitals as above Eyes: PERRL, conjunctivae normal, anicteric sclerae Neck: trachea midline, no thyromegaly Respiratory: normal respiratory effort, lungs clear to auscultation Cardiovascular: RRR, no murmur, no edema Gastrointestinal (Abdomen): soft, NT, Nd, BS + Neurologic: patellar DTR's 2+ bilat, sensation intact Psychiatric: A+Ox3, euthymic affect Results & Data ([facility]) Vital Signs (Past 12 Hours) Vital Signs Temp Pulse Pulse Resp BP BP Pulse Ox 05/02/21 11:03 162/82 H 05/02/21 10:51 36.6 C 67 20 171/91 H 96 05/02/21 07:26 63 05/02/21 06:04 36.5 C 63 16 128/76 96 05/02/21 04:00 36.8 C 70 18 130/79 97 Laboratory Results Abnormal lab results 05/02/21 05/02/21 Range/Units 07:16 07:16 WBC 3.44 L (4.8-10.8) K/uL RBC 3.98 L (4.2-5.4) M/uL Hgb 10.0 L (12.0-16.0) g/dL Hct 33.8 L (37-47) % MCHC 29.6 L (32-36) g/dL RDW Std Deviation 48.8 H (36.4-46.3) fL RDW Coeff of Kayli 15.8 H (11.5-14.5) % MPV 10.7 H (7.4-10.4) fL Lymph # (Auto) 1.13 L (1.2-3.4) K/uL Creatinine 0.57 L (0.6-1.2) mg/dl Glucose 101 H (70-99(Fasting)) mg/dl Calcium 8.0 L (8.5-10.1) mg/dl Total Protein 4.9 L (6.0-8.3) gm/dl Albumin 3.1 L (3.4-5.0) gm/dl Globulin 1.8 L (2.5-4.0) gm/dl Diagnostic Findings SMALL BOWEL FOLLOW THROUGH UTILIZING OPTIRAY CLINICAL HISTORY: Small bowel obstruction. COMPARISON STUDY: CT of the abdomen and pelvis April 27, 2021. Abdominal series February 26, 2022. FLUOROSCOPY TIME: 0 seconds. FLUOROSCOPIC IMAGES: 0. Overhead images were obtained. PROCEDURE AND FINDINGS: Waist Cutter image demonstrates multiple loops of dilated small bowel, similar to prior KUB. 2 cups of diluted Optiray were then ingested and overhead images were obtained. The proximal to mid small bowel was mildly to moderately dilated. A well-defined transition point was not identified. However, contrast reached the colon at 1 hour and 45 minutes. The findings suggest a partial small bowel obstruction. IMPRESSION: Mild to moderate dilatation of the proximal to mid small bowel. Transition point not identified however the findings suggest a partial small bowel obstruction. Contrast reached the colon at 1 hour and 45 minutes.
--- NOTE | 2021-05-02 17:28 | Hospitalist Progress Note ---
Date of Service May 02, 2021 Assessment & Plan (1) Partial small bowel obstruction: Plan: (1) Partial small bowel obstruction: Plan: continue conservative management Continue with bowel regimen, patient will likely need upon discharge as well. continue NSS at 80cc/hr, can DC once patient is tolerating diet Patient moved bowel x2 on 05/02, surgery started her on clear liquid diet, appreciate surgery recommendation. 2) Elevated troponin: Plan: -denies chest pain, shortness of breath -TTE no wall motion abnormalities (3) Repeated falls: Plan: PT/OT ordered (4) Urinary tract infection symptoms: Plan: -Pansensitive E coli -s/p ceftriaxone DVT ppx -SQ lovenox Hypokalemia Hypophosphatemia -Monitor and replete as appropriate. Dispo: med/surg, PT/OT, CM to assist with DC planning. Admission and Anticipated Discharge Date Admission Date: April 27, 2021 Subjective Patient seen and examined at bedside for f/u of partial small bowel obstruction. Patient lying in bed, on room air, NAD, no new acute events overnight. Patient reports belly pain that has been improving nicely. Patient had 2 moderate bowel movement in the morning. Continue with bowel regimen. Surgery has started her on clear liquid diet. Patient denies fever/headache/chills/chest pain/palpitation/other review of symptoms. Physical Exam Physical Exam: GENERAL: Alert and oriented x3. NAD, on RA. HEENT: No pallor, no icterus. Pupils equal, round and reactive to light. Oral mucosa moist. NECK: No JVD, no neck masses. HEART: S1 and S2 heard. Regular rate and rhythm. No murmur, no gallop. RESPIRATORY SYSTEM: Normal AP diameter. No accessory muscle use. No wheezing, no crackles. ABDOMEN: Soft, bowel sounds present, decrease in tender, mildly tense. CENTRAL NERVOUS SYSTEM: No facial droop. Speech is clear. Obeys simple commands. Moves extremities. EXTREMITIES: No edema, no erythema seen. Results & Data Results & Data ([facility]) Vital Signs (Past 12 Hours) Vital Signs Temp Pulse Pulse Resp BP BP Pulse Ox 05/02/21 14:57 92 H 05/02/21 14:53 36.6 C 87 20 113/72 95 05/02/21 11:03 162/82 H 05/02/21 10:51 36.6 C 67 20 171/91 H 96 05/02/21 07:26 63 05/02/21 06:04 36.5 C 63 16 128/76 96
[2021-05-02] MEDS: ENOXAPARIN INJ 30 MG/0.3 ML SYR SQ SCH (20:36)
[2021-05-02] MEDS ORDERED: KETOROLAC TROMETHAMINE 15 MG/ML VIAL IV ONE (20:49)
[2021-05-02] MEDS: ONDANSETRON INJ 2 MG/ML 2 ML VIAL IV PRN (21:13)
[2021-05-03] MEDS: D5W AND LACTATED RINGERS 1,000 ML IV SCH (00:59)
[2021-05-03 07:36] LABS: Hemoglobin 8.3 g/dL (12.0-16.0); Mean Corpuscular Hemoglobin 25.1 pg (25-34); Mean Corpuscular Hgb Conc 29.6 g/dL (32-36); Mean Corpuscular Volume 84.6 fL (80-100); Mean Platelet Volume 10.6 fL (7.4-10.4); Platelet Count 193 K/uL (130-400); RDW Standard Deviation 48.7 fL (36.4-46.3); Red Blood Count 3.31 M/uL (4.2-5.4); White Blood Count 2.64 K/uL (4.8-10.8)
[2021-05-03] MEDS: POLYETHYLENE (MIRALAX) 17 GM PACK PO SCH (07:52)
[2021-05-03] MEDS: DOCUSATE SODIUM 100 MG CAP PO SCH ×2 (07:54→21:02)
[2021-05-03] MEDS: bisacodyL 10 MG SUPP PR SCH (07:54)
[2021-05-03 07:57] LABS: BUN Creatinine Ratio 9.5 (10-20); Calcium 7.7 mg/dl (8.5-10.1); Creatinine Clr Calc Pharmacy 45.2 ml/min; Est GFR (African American) 93.5 ml/min; Est GFR (Non-African American) 80.6 ml/min; Magnesium 1.7 mg/dl (1.7-2.4); Phosphorus 3.3 mg/dl (2.5-4.9); Potassium 3.7 mmol/L (3.5-5.1)
[2021-05-03] MEDS ORDERED: MAGNESIUM SULFATE / D5W 1 GM/100 ML BAG IV ONE (10:00)
--- NOTE | 2021-05-03 10:19 | XRay Report ---
KUB CLINICAL HISTORY: f/u bowel obstruction, still with belly pain COMPARISON STUDY: CT of the abdomen and pelvis April 27, 2021. Abdominal series April 29, 2021 . Small bowel follow-through May 01, 2021. FINDINGS: Note is made of oral contrast within the colon and rectum from recent small bowel follow-th rough. Multiple loops of moderately dilated small bowel are again noted. Small bowel dilatation is si milar to prior KUB. Old right pubic ring fractures are incidentally noted. IMPRESSION: No significant change in small bowel dilatation. The findings favor a persistent small b owel obstruction. ACT 112: Negative or not required by law. Electronically signed by: Jj Yu M.D. 05/03/2021 10:18 AM
--- NOTE | 2021-05-03 12:51 | Surgery Progress Note ---
Date of Service May 03, 2021 Assessment & Plan (1) Partial small bowel obstruction: Plan: PSBO vs Ileus Fecal retention in colon KUB today showing small bowel distention up to 3 cm with moderate stool burden in colon (last bowel movement 9 days ago) Plan: No acute surgical intervention recommended at this time, continue conservative treatment given the mild nausea and distention would recommend continuing NPO status Bowel regimen per medicine team given stool burden in colon ambulate with assistance Dr. Vicente covering this weekend Dr. Russell was present during my examination and agrees with above. 05/01/2021 11:50AM Dr. russell F/U PSBO, not passed BM yet, I recommend to do small bowel follow -through, D/W benefits, risks and alternatives of the study, pt understood, she agrees with the study, possible surgery treatment if complete SBO, pt understood, I answered all questions, will F/U 05/02/2021 12:07PMDR. Russell passed 2 times BM, clear diet, will F/U, 05/03/2021 12:[address] Russell, F/U PSBO, passed some liquid stool, pt is still have some abdominal pain, no vomiting, most likely scar caused SBO, D/W possible exploratory laparotomy, lysis of adhesion possible bowel resection or stoma, if pt is still have abdominal pain in next 1-2 days, D/W benefits, risks and alternatives of the surgery, pt will Discuss with her son, continue clear diet now, will F/U Admission and Anticipated Discharge Date Admission Date: April 27, 2021 Supervising Physician Co-Signing Physician Notes Patient is an 85-year-old female with history of degenerative joint disease, osteoporosis, GERD, and other medical problems presents with history of worsening abdominal pain since 1 day duration. Patient has history of laparoscopic Seferino fundoplication many years ago. Patient states her last bowel movement was more than a week ago. She admits to trying Dulcolax for constipation intermittently. Also reports nausea but no vomiting. Reports chills but no fever. Also denies any chest pain, shortness of breath. Please review HPI for complete details of presentation. Blood work suggestive of hemog lobin 10.7, troponin 0 0.06. Urinalysis suggestive of possible UTI. CT abdomen showed findings suggestive of partial small bowel obstruction also noted moderate fecal stasis, small hiatal hernia and mild abdominal pelvic ascites. On exam patient is elderly, ill-appearing, thin, no apparent distress, normocephalic atraumatic, EOMI, decreased breath sounds, clear to auscultation, S1-S2, no murmur, no pedal edema, abdomen distended, tender, decreased bowel sounds, voluntary guarding, alert, awake, oriented, grossly no focal deficits. Patient is admitted for management of partial small bowel obstruction. Also noted mild elevation of troponin likely secondary to elevated blood pressure. Urinalysis concerning for UTI. We will keep her n.p.o. for now. Pain control. IV fluids. Surgery consulted. Will give tap water enema for fecal stasis. Consider NG tube placement if needed. Agree with trending cardiac enzymes, check echo and repeat EKG in the morning. I personally reviewed the record. Patient is interviewed and examined at bedside. Patient's care is coordinated with Irena Lehman PA-C. Please refer to the documentation above for details of patient's presentation and for discussion of other issues. Subjective Patient seen and examined at bedside for f/u of partial small bowel obstruction. Patient lying in bed, on room air, NAD, no new acute events overnight. Patient reports belly pain that has been improving nicely. Patient had 2 moderate bowel movement in the morning. Continue with bowel regimen. Surgery has started her on clear liquid diet. Patient denies fever/headache/chills/chest pain/palpitation/other review of symptoms. 05/03/2021 12:48PM Dr. Russell F/U PSBO, passed some liquid stool this morning, still clear diet, no vomiting, but pt said she has some abdominal pain, no fever, Physical Exam Constitutional: WD/WN, vitals as above Eyes: PERRL, conjunctivae normal, anicteric sclerae Neck: trachea midline, no thyromegaly Respiratory: normal respiratory effort, lungs clear to auscultation Cardiovascular: RRR, no murmur, no edema Gastrointestinal (Abdomen): soft, mild tenderness at umbilical area, no rebound pain, BS +, no significant distend Neurologic: patellar DTR's 2+ bilat, sensation intact Psychiatric: A+Ox3, euthymic affect Results & Data ([facility]) Vital Signs (Past 12 Hours) Vital Signs Temp Pulse Resp BP Pulse Ox 05/03/21 11:20 36.6 C 68 17 134/77 98 05/03/21 08:37 36.7 C 72 18 107/68 95 Laboratory Results Abnormal lab results 05/03/21 05/03/21 Range/Units 06:50 06:50 WBC 2.64 L (4.8-10.8) K/uL RBC 3.31 L (4.2-5.4) M/uL Hgb 8.3 L (12.0-16.0) g/dL Hct 28.0 L (37-47) % MCHC 29.6 L (32-36) g/dL RDW Std Deviation 48.7 H (36.4-46.3) fL RDW Coeff of Kayli 16.0 H (11.5-14.5) % MPV 10.6 H (7.4-10.4) fL Chloride 108 H (98-107) mmol/L Anion Gap 1 L (3-11) BUN/Creatinine Ratio 9.5 L (10-20) Calcium 7.7 L (8.5-10.1) mg/dl Diagnostic Findings KUB CLINICAL HISTORY: f/u bowel obstruction, still with belly pain COMPARISON STUDY: CT of the abdomen and pelvis April 27, 2021. Abdominal series April 29, 2021. Small bowel follow-through May 01, 2021. FINDINGS: Note is made of oral contrast within the colon and rectum from recent small bowel follow-through. Multiple loops of moderately dilated small bowel are again noted. Small bowel dilatation is similar to prior KUB. Old right pubic ring fractures are incidentally noted. IMPRESSION: No significant change in small bowel dilatation. The findings favor a persistent small bowel obstruction.
--- NOTE | 2021-05-03 14:48 | Ultrasound Report ---
US gallbladder CLINICAL HISTORY: Right upper quadrant abdominal pain. COMPARISON STUDY: CT of the abdomen and pelvis April 27, 2021. FINDINGS: No hepatic lesions are identified. There is no biliary ductal dilatation. Common bile duct measures 6 mm in caliber. Perihepatic ascites is again noted, as shown on prior CT. A small right ple ural effusion is noted. Pancreas is obscured by overlying bowel gas. Echogenic foci with comet tail a rtifact within the gallbladder wall reflect adenomyomatosis. Gallbladder wall is mildly thickened, me asuring 4 mm. There are no gallstones. There is no sonographic Otto sign. There is mild right colle cting system dilatation. IMPRESSION: 1. No gallstones or biliary ductal dilatation. 2. Mild gallbladder wall thickening, a nonspecific finding. 3. Redemonstration of perihepatic ascites. Small right pleural effusion. ACT 112: Negative or not required by law. Electronically signed by: Jj Yu M.D. 05/03/2021 2:47 PM
--- NOTE | 2021-05-03 16:49 | Hospitalist Progress Note ---
Date of Service May 03, 2021 Assessment & Plan (1) Partial small bowel obstruction: Plan: (1) Partial small bowel obstruction: Plan: continue conservative management Continue with bowel regimen, patient will likely need upon discharge as well. 05/02: 2 moderate BM 05/03: 3 loose BM 05/03 KUB XR: persistent small bowel obstruction 05/03 USG RUQ reviewed. DC'd ivf, c/w clear diet, ambulate patient every 2-3 hours with assistance [communication order placed] Surgery on board: Conservative management for next 1 to 2 days, if not improving consideration of surgical option 2) Elevated troponin: Plan: -denies chest pain, shortness of breath -TTE no wall motion abnormalities (3) Repeated falls: Plan: PT/OT (4) Urinary tract infection symptoms: Plan: -Pansensitive E coli -s/p ceftriaxone DVT ppx -SQ lovenox #. Hypokalemia #. Hypophosphatemia -Monitor and replete as appropriate. Dispo: med/surg, PT/OT, CM to assist with DC planning. 05/03: Patient son was at bedside during the afternoon, was updated about patient's current status including the option of surgery if she does not improve, answered all his questions, he voiced understanding and was agreeable to the plan of care. Admission and Anticipated Discharge Date Admission Date: April 27, 2021 Subjective Patient seen and examined at bedside for f/u of partial small bowel obstruction. Patient sitting up in chair, on room air, NAD, no new acute events overnight but had multiple loose stools in the morning. Patient reports belly pain not improving. Patient also moved 2 moderate bowel movement yesterday. Continue with clear liquid diet per surgery. Patient denies fever/headache/chills/chest pain/palpitation/other review of symptoms. Physical Exam Physical Exam: GENERAL: Alert and oriented x3. NAD, on RA. HEENT: No pallor, no icterus. Pupils equal, round and reactive to light. Oral mucosa moist. NECK: No JVD, no neck masses. HEART: S1 and S2 heard. Regular rate and rhythm. No murmur, no gallop. RESPIRATORY SYSTEM: Normal AP diameter. No accessory muscle use. No wheezing, no crackles. ABDOMEN: Soft, bowel sounds present, + tender, mildly tense. CENTRAL NERVOUS SYSTEM: No facial droop. Speech is clear. Obeys simple commands. Moves extremities. EXTREMITIES: No edema, no erythema seen. Results & Data Results & Data ([facility]) Vital Signs (Past 12 Hours) Vital Signs Temp Pulse Resp BP Pulse Ox 05/03/21 16:07 37.1 C 70 18 148/80 H 95 05/03/21 11:20 36.6 C 68 17 134/77 98 05/03/21 08:37 36.7 C 72 18 107/68 95
[2021-05-03] MEDS: ENOXAPARIN INJ 30 MG/0.3 ML SYR SQ SCH (21:02)
[2021-05-03] MEDS: MoRPHine SULFATE 2 MG/ML CARP IV PRN (23:46)
[2021-05-04 07:11] LABS: Hematocrit (blood only) 31.8 % (37-47); Hemoglobin 9.6 g/dL (12.0-16.0); Mean Corpuscular Hemoglobin 25.5 pg (25-34); Mean Corpuscular Hgb Conc 30.2 g/dL (32-36); Mean Corpuscular Volume 84.4 fL (80-100); Mean Platelet Volume 10.7 fL (7.4-10.4); Platelet Count 230 K/uL (130-400); RDW Coefficient of Variation 16.2 % (11.5-14.5); RDW Standard Deviation 48.8 fL (36.4-46.3); Red Blood Count 3.77 M/uL (4.2-5.4); White Blood Count 4.02 K/uL (4.8-10.8)
[2021-05-04 07:41] LABS: BUN Creatinine Ratio 8.9 (10-20); Calcium 8.1 mg/dl (8.5-10.1); Creatinine Clr Calc Pharmacy 50.8 ml/min; Est GFR (African American) 97.2 ml/min; Est GFR (Non-African American) 83.8 ml/min; Phosphorus 3.5 mg/dl (2.5-4.9); Potassium 3.6 mmol/L (3.5-5.1)
[2021-05-04] MEDS: KETOROLAC TROMETHAMINE 15 MG/ML VIAL IV PRN ×2 (07:44→20:21)
[2021-05-04] MEDS: DOCUSATE SODIUM 100 MG CAP PO SCH ×2 (07:44→20:22)
[2021-05-04] MEDS: POLYETHYLENE (MIRALAX) 17 GM PACK PO SCH (07:44)
[2021-05-04] MEDS: METHYLNALTREXONE BROMIDE 12 MG/0.6 ML VIAL SQ SCH (09:52)
[2021-05-04] MEDS: D5W NORMOSOL-R 1,000 ML IV SCH ×2 (09:52→23:22)
--- NOTE | 2021-05-04 12:28 | Surgery Progress Note ---
Date of Service May 04, 2021 Assessment & Plan (1) Partial small bowel obstruction: Plan: PSBO vs Ileus Fecal retention in colon KUB today showing small bowel distention up to 3 cm with moderate stool burden in colon (last bowel movement 9 days ago) Plan: No acute surgical intervention recommended at this time, continue conservative treatment given the mild nausea and distention would recommend continuing NPO status Bowel regimen per medicine team given stool burden in colon ambulate with assistance Dr. Vicente covering this weekend Dr. Russell was present during my examination and agrees with above. 05/01/2021 11:50AM Dr. russell F/U PSBO, not passed BM yet, I recommend to do small bowel follow -through, D/W benefits, risks and alternatives of the study, pt understood, she agrees with the study, possible surgery treatment if complete SBO, pt understood, I answered all questions, will F/U 05/02/2021 12:07PMDR. Russell passed 2 times BM, clear diet, will F/U, 05/03/2021 12:[address] Russell, F/U PSBO, passed some liquid stool, pt is still have some abdominal pain, no vomiting, most likely scar caused SBO, D/W possible exploratory laparotomy, lysis of adhesion possible bowel resection or stoma, if pt is still have abdominal pain in next 1-2 days, D/W benefits, risks and alternatives of the surgery, pt will Discuss with her son, continue clear diet now, will F/U 05/04/2021 12:25PM, F/U PSBO, doing better, passed BM tolerated clear diet, base on pt is high risk for surgery treatment, pt is not good candidate for surgery treatment, continue conservative treatment, pt can be discharged tomorrow if pt is doing fine, pt agrees with plan, pt dose not want to have surgery if she has to, I answered all questions, sign off today, please call with questions, thanks, F/U me 2 weeks, Admission and Anticipated Discharge Date Admission Date: April 27, 2021 Supervising Physician Co-Signing Physician Notes Patient is an 85-year-old female with history of degenerative joint disease, osteoporosis, GERD, and other medical problems presents with history of worsening abdominal pain since 1 day duration. Patient has history of laparoscopic Seferino fundoplication many years ago. Patient states her last bowel movement was more than a week ago. She admits to trying Dulcolax for con stipation intermittently. Also reports nausea but no vomiting. Reports chills but no fever. Also denies any chest pain, shortness of breath. Please review HPI for complete details of presentation. Blood work suggestive of hemoglobin 10.7, troponin 0 0.06. Urinalysis suggestive of possible UTI. CT abdomen showed findings suggestive of partial small bowel obstruction also noted moderate fecal stasis, small hiatal hernia and mild abdominal pelvic ascites. On exam patient is elderly, ill-appearing, thin, no apparent distress, normocephalic atraumatic, EOMI, decreased breath sounds, clear to auscultation, S1-S2, no murmur, no pedal edema, abdomen distended, tender, decreased bowel sounds, voluntary guarding, alert, awake, oriented, grossly no focal deficits. Patient is admitted for management of partial small bowel obstruction. Also noted mild elevation of troponin likely secondary to elevated blood pressure. Urinalysis concerning for UTI. We will keep her n.p.o. for now. Pain control. IV fluids. Surgery consulted. Will give tap water enema for fecal stasis. Consider NG tube placement if needed. Agree with trending cardiac enzymes, check echo and repeat EKG in the morning. I personally reviewed the record. Patient is interviewed and examined at bedside. Patient's care is coordinated with Irena Lehman PA-C. Please refer to the documentation above for details of patient's presentation and for discussion of other issues. Subjective Patient seen and examined at bedside for f/u of partial small bowel obstruction. Patient sitting up in chair, on room air, NAD, no new acute events overnight but had multiple loose stools in the morning. Patient reports belly pain not improving. Patient also moved 2 moderate bowel movement yesterday. Continue with clear liquid diet per surgery. Patient denies fever/headache/chills/chest pain/palpitation/other review of symptoms. 05/04/2021 12:23PM Dr. Russell pt feels better, tolerated clear diet, no vomiting, no fever, passed BM, Physical Exam Constitutional: WD/WN, vitals as above Eyes: PERRL, conjunctivae normal, anicteric sclerae Neck: trachea midline, no thyromegaly Respiratory: normal respiratory effort, lungs clear to auscultation Cardiovascular: RRR, no murmur, no edema Gastrointestinal (Abdomen): soft, ND , NT, BS + Neurologic: patellar DTR's 2+ bilat, sensation intact Psychiatric: A+Ox3, euthymic affect Results & Data ([facility]) Vital Signs (Past 12 Hours) Vital Signs Temp Pulse Resp BP BP Pulse Ox 05/04/21 08:14 138/77 05/04/21 07:32 36.8 C 81 18 176/105 H 96 Laboratory Results Abnormal lab results 05/04/21 05/04/21 Range/Units 06:39 06:39 WBC 4.02 L (4.8-10.8) K/uL RBC 3.77 L (4.2-5.4) M/uL Hgb 9.6 L (12.0-16.0) g/dL Hct 31.8 L (37-47) % MCHC 30.2 L (32-36) g/dL RDW Std Deviation 48.8 H (36.4-46.3) fL RDW Coeff of Kayli 16.2 H (11.5-14.5) % MPV 10.7 H (7.4-10.4) fL Carbon Dioxide 33 H (21-32) mmol/L Anion Gap 2 L (3-11) BUN 5 L (6-23) mg/dl Creatinine 0.56 L (0.6-1.2) mg/dl BUN/Creatinine Ratio 8.9 L (10-20) Calcium 8.1 L (8.5-10.1) mg/dl
[2021-05-04] MEDS ORDERED: bisacodyL 10 MG SUPP PR PRN (16:57)
--- NOTE | 2021-05-04 17:09 | Hospitalist Progress Note ---
Date of Service May 04, 2021 Assessment & Plan (1) Partial small bowel obstruction: Plan: (1) Partial small bowel obstruction: Plan: continue conservative management Continue with bowel regimen, patient will likely need upon discharge as well. 05/02: 2 moderate BM 05/03: 3 loose BM 05/03 KUB XR: persistent small bowel obstruction 05/04: No further bowel movement after 05/03, patient continues to report belly pain overnight requiring pain medication and also in the morning requiring pain medication, patient on clear liquid diet. Resumed IV fluid, ambulate every 2-3 hours with assistance, OH and p.o. laxatives in place, will give a trial of methylnaltrexone Surgery evaluated, signed off 05/04 -->per sx, patient has improved surgically and patient is not a good candidate for surgery treatment. I will continue with conservative management, hopefully patient gets better. F/u with Sx as OP. 2) Elevated troponin: Plan: -denies chest pain, shortness of breath -TTE no wall motion abnormalities (3) Repeated falls: Plan: PT/OT (4) Urinary tract infection symptoms: Plan: -Pansensitive E coli -s/p ceftriaxone DVT ppx -SQ lovenox #. Hypokalemia #. Hypophosphatemia -Monitor and replete as appropriate. Dispo: med/surg, PT/OT, CM to assist with DC planning. Pending improvement in her bowel function. 05/03: Patient son was at bedside during the afternoon, was updated about patient's current status including the option of surgery if she does not improve, answered all his questions, he voiced understanding and was agreeable to the plan of care. Admission and Anticipated Discharge Date Admission Date: April 27, 2021 Subjective Patient seen and examined at bedside for f/u of partial small bowel obstruction. Patient lying in bed, on room air, NAD, patient reports severe belly pain overnight requiring pain medications, also in the morning requiring pain medication which was better later in the morning. Patient does not report any further bowel movement from yesterday morning. Per surgery, patient on clear liquid diet. Patient denies fever/headache/chills/chest pain/palpitation/other review of symptoms. Physical Exam Physical Exam: GENERAL: Alert and oriented x3. NAD, on RA. HEENT: No pallor, no icterus. Pupils equal, round and reactive to light. Oral mucosa moist. NECK: No JVD, no neck masses. HEART: S1 and S2 heard. Regular rate and rhythm. No murmur, no gallop. RESPIRATORY SYSTEM: Normal AP diameter. No accessory muscle use. No wheezing, no crackles. ABDOMEN: Soft, bowel sounds present, + tender, mildly tense. CENTRAL NERVOUS SYSTEM: No facial droop. Speech is clear. Obeys simple commands. Moves extremities. EXTREMITIES: No edema, no erythema seen. Results & Data Results & Data ([facility]) Vital Signs (Past 12 Hours) Vital Signs Temp Pulse Resp BP BP Pulse Ox 05/04/21 08:14 138/77 05/04/21 07:32 36.8 C 81 18 176/105 H 96
[2021-05-04] MEDS: ENOXAPARIN INJ 30 MG/0.3 ML SYR SQ SCH (20:22)
[2021-05-04] MEDS: bisacodyL 10 MG SUPP PR SCH (20:25)
[2021-05-04] MEDS: ONDANSETRON INJ 2 MG/ML 2 ML VIAL IV PRN (20:31)
[2021-05-05] MEDS: MoRPHine SULFATE 2 MG/ML CARP IV PRN (04:54)
[2021-05-05 06:08] LABS: Hematocrit (blood only) 31.9 % (37-47); Hemoglobin 9.4 g/dL (12.0-16.0); Mean Corpuscular Hemoglobin 24.9 pg (25-34); Mean Corpuscular Hgb Conc 29.5 g/dL (32-36); Mean Corpuscular Volume 84.4 fL (80-100); Mean Platelet Volume 10.1 fL (7.4-10.4); Platelet Count 221 K/uL (130-400); RDW Coefficient of Variation 16.2 % (11.5-14.5); RDW Standard Deviation 49.3 fL (36.4-46.3); Red Blood Count 3.78 M/uL (4.2-5.4); White Blood Count 3.99 K/uL (4.8-10.8)
[2021-05-05 06:33] LABS: BUN Creatinine Ratio 5.4 (10-20); Creatinine Clr Calc Pharmacy 50.8 ml/min; Est GFR (African American) 97.2 ml/min; Est GFR (Non-African American) 83.8 ml/min; Potassium 3.3 mmol/L (3.5-5.1)
[2021-05-05] MEDS: METHYLNALTREXONE BROMIDE 12 MG/0.6 ML VIAL SQ SCH (09:23)
[2021-05-05] MEDS: DOCUSATE SODIUM 100 MG CAP PO SCH (09:23)
[2021-05-05] MEDS: POLYETHYLENE (MIRALAX) 17 GM PACK PO SCH (09:27)
[2021-05-05] MEDS ORDERED: POTASSIUM CHLORIDE CRTAB 20 MEQ TABCR PO STA (09:30)
[2021-05-05] MEDS: KETOROLAC TROMETHAMINE 15 MG/ML VIAL IV PRN (09:31)
[2021-05-05] MEDS: bisacodyL 10 MG SUPP PR SCH ×2 (09:31→21:13)
[2021-05-05] MEDS: ONDANSETRON INJ 2 MG/ML 2 ML VIAL IV PRN (09:31)
--- NOTE | 2021-05-05 10:19 | Surgery Progress Note ---
Date of Service May 05, 2021 Assessment & Plan (1) Partial small bowel obstruction: Plan: PSBO vs Ileus Fecal retention in colon KUB today showing small bowel distention up to 3 cm with moderate stool burden in colon (last bowel movement 9 days ago) Plan: No acute surgical intervention recommended at this time, continue conservative treatment given the mild nausea and distention would recommend continuing NPO status Bowel regimen per medicine team given stool burden in colon ambulate with assistance Dr. Vicente covering this weekend Dr. Russell was present during my examination and agrees with above. 05/01/2021 11:50AM Dr. russell F/U PSBO, not passed BM yet, I recommend to do small bowel follow -through, D/W benefits, risks and alternatives of the study, pt understood, she agrees with the study, possible surgery treatment if complete SBO, pt understood, I answered all questions, will F/U 05/02/2021 12:07PMDR. Russell passed 2 times BM, clear diet, will F/U, 05/03/2021 12:[address] Russell, F/U PSBO, passed some liquid stool, pt is still have some abdominal pain, no vomiting, most likely scar caused SBO, D/W possible exploratory laparotomy, lysis of adhesion possible bowel resection or stoma, if pt is still have abdominal pain in next 1-2 days, D/W benefits, risks and alternatives of the surgery, pt will Discuss with her son, continue clear diet now, will F/U 05/04/2021 12:25PM, F/U PSBO, doing better, passed BM tolerated clear diet, base on pt is high risk for surgery treatment, pt is not good candidate for surgery treatment, continue conservative treatment, pt can be discharged tomorrow if pt is doing fine, pt agrees with plan, pt dose not want to have surgery if she has to, I answered all questions, sign off today, please call with questions, thanks, F/U me 2 weeks, 05/05/2021 10: 21AM, DR. Russell F/U SBO, pt is still have abdominal pain, can not tolerated clear diet, failed conservative treatment for 8 days, Plan, I recommend to do exploratory laparotomy, possible bowel resection, or stoma, D/W benefits, risks and alternatives of the surgery, the risks - infection, bleeding, injury bowel to other organs, OK, DVT, stroke, , ( I also called pt's son Jani ) they understood, they agree with surgery , pt peg d informed consent, I answered all questions, NPO, Hold lovenox, correct low K, pre-op antibiotic, Admission and Anticipated Discharge Date Admission Date: April 27, 2021 Supervising Physician Co-Signing Physician Notes Patient is an 85-year-old female with history of degenerative joint disease, osteoporosis, GERD, and other medical problems presents with history of worsening abdominal pain since 1 day duration. Patient has history of lapa roscopic Seferino fundoplication many years ago. Patient states her last bowel movement was more than a week ago. She admits to trying Dulcolax for constipation intermittently. Also reports nausea but no vomiting. Reports chills but no fever. Also denies any chest pain, shortness of breath. Please review HPI for complete details of presentation. Blood work suggestive of hemoglobin 10.7, troponin 0 0.06. Urinalysis suggestive of possible UTI. CT abdomen showed findings suggestive of partial small bowel obstruction also noted moderate fecal stasis, small hiatal hernia and mild abdominal pelvic ascites. On exam patient is elderly, ill-appearing, thin, no apparent distress, normocephalic atraumatic, EOMI, decreased breath sounds, clear to auscultation, S1-S2, no murmur, no pedal edema, abdomen distended, tender, decreased bowel sounds, voluntary guarding, alert, awake, oriented, grossly no focal deficits. Patient is admitted for management of partial small bowel obstruction. Also noted mild elevation of troponin likely secondary to elevated blood pressure. Urinalysis concerning for UTI. We will keep her n.p.o. for now. Pain control. IV fluids. Surgery consulted. Will give tap water enema for fecal stasis. Consider NG tube placement if needed. Agree with trending cardiac enzymes, check echo and repeat EKG in the morning. I personally reviewed the record. Patient is interviewed and examined at bedside. Patient's care is coordinated with Irena Lehman PA-C. Please refer to the documentation above for details of patient's presentation and for discussion of other issues. Subjective Patient seen and examined at bedside for f/u of partial small bowel obstruction. Patient lying in bed, on room air, NAD, patient reports severe belly pain overnight requiring pain medications, also in the morning requiring pain medication which was better later in the morning. Patient does not report any further bowel movement from yesterday morning. Per surgery, patient on clear liquid diet. Patient denies fever/headache/chills/chest pain/palpitation/other review of symptoms. 05/05/2021 10:15 AM, Dr. Russell F/U SBO, pt is still have abdominal pain last night, passed a little gas no BM yet for last 2 days, pt said clear diet is still cause her abdominal pain, no fever, Physical Exam Constitutional: WD/WN, vitals as above Eyes: PERRL, conjunctivae normal, anicteric sclerae Neck: trachea midline, no thyromegaly Respiratory: normal respiratory effort, lungs clear to auscultation Cardiovascular: RRR, no murmur, no edema Gastrointestinal (Abdomen): tenderness at periumbilical area, no rebound pain, mild distend, BS +, middle scar, Neurologic: patellar DTR's 2+ bilat, sensation intact Psychiatric: A+Ox3, euthymic affect Results & Data ([facility]) Vital Signs (Past 12 Hours) Vital Signs Temp Pulse Resp BP BP Pulse Ox 05/05/21 09:19 136/76 05/05/21 08:00 36.4 C L 81 20 187/109 H 192/115 H 97 05/04/21 23:00 37.0 C 84 20 144/83 H 96 Laboratory Results Abnormal lab results 05/05/21 05/05/21 Range/Units 05:46 05:46 WBC 3.99 L (4.8-10.8) K/uL RBC 3.78 L (4.2-5.4) M/uL Hgb 9.4 L (12.0-16.0) g/dL Hct 31.9 L (37-47) % MCH 24.9 L (25-34) pg MCHC 29.5 L (32-36) g/dL RDW Std Deviation 49.3 H (36.4-46.3) fL RDW Coeff of Kayli 16.2 H (11.5-14.5) % Potassium 3.3 L (3.5-5.1) mmol/L BUN 3 L (6-23) mg/dl Creatinine 0.56 L (0.6-1.2) mg/dl BUN/Creatinine Ratio 5.4 L (10-20) Glucose 105 H (70-99(Fasting)) mg/dl Calcium 8.0 L (8.5-10.1) mg/dl Diagnostic Findings KUB 05/05/2021, SBO,
--- NOTE | 2021-05-05 10:29 | History & Physical Bridge Note ---
Date of Service May 05, 2021 History & Physical Bridge Note I have examined the patient, reviewed the History & Physical and in the interval since the performance of the History & Physical I have noted the following changes of clinical significance: no changes noted Supervising Physician Co-Signing Physician Notes Patient is an 85-year-old female with history of degenerative joint disease, osteoporosis, GERD, and other medical problems presents with history of worsening abdominal pain since 1 day duration. Patient has history of laparoscopic Seferino fundoplication many years ago. Patient states her last bowel movement was more than a week ago. She admits to trying Dulcolax for constipation intermittently. Also reports nausea but no vomiting. Reports chills but no fever. Also denies any chest pain, shortness of breath. Please review HPI for complete details of presentation. Blood work suggestive of hemoglobin 10.7, troponin 0 0.06. Urinalysis suggestive of possible UTI. CT abdomen showed findings suggestive of partial small bowel obstruction also noted moderate fecal stasis, small hiatal hernia and mild abdominal pelvic ascites. On exam patient is elderly, ill-appearing, thin, no apparent distress, no rmocephalic atraumatic, EOMI, decreased breath sounds, clear to auscultation, S1-S2, no murmur, no pedal edema, abdomen distended, tender, decreased bowel sounds, voluntary guarding, alert, awake, oriented, grossly no focal deficits. Patient is admitted for management of partial small bowel obstruction. Also noted mild elevation of troponin likely secondary to elevated blood pressure. Urinalysis concerning for UTI. We will keep her n.p.o. for now. Pain control. IV fluids. Surgery consulted. Will give tap water enema for fecal stasis. Consider NG tube placement if needed. Agree with trending cardiac enzymes, check echo and repeat EKG in the morning. I personally reviewed the record. Patient is interviewed and examined at bedside. Patient's care is coordinated with Irena Lehman PA-C. Please refer to the documentation above for details of patient's presentation and for discussion of other issues.
[2021-05-05] MEDS ORDERED: ceFAZolin 2000MG 2,000 MG/15 ML SYR IV ONE (10:32)
--- NOTE | 2021-05-05 10:36 | XRay Report ---
KUB CLINICAL HISTORY: Small bowel obstruction. FINDINGS: An AP, portable, supine abdominal radiograph is compared to study dated 05/03/2021 and corre lated with abdominal CT dated 04/27/2021. There is evidence of persistent small bowel obstruction. Dis tended and gas-filled loops of small bowel measure up to 3.3 cm in diameter. Residual enteric contras t is again seen within the distal small bowel and right colon. No evidence of intraperitoneal free ai r is identified on these supine images. Numerous phleboliths are seen in the pelvis. The skeletal str uctures are osteopenic and appear intact. There is advanced lumbosacral spondylosis and scoliosis. IMPRESSION: Persistent small bowel obstruction, unchanged from 05/03/2021. Electronically signed by: Bharathi Alfonso M.D. 05/05/2021 10:34 AM
[2021-05-05] MEDS ORDERED: GLYCOPYRROLATE 0.2 MG/ML VIAL ONE (11:29)
[2021-05-05] MEDS ORDERED: ONDANSETRON INJ 2 MG/ML 2 ML VIAL ONE (11:29)
[2021-05-05] MEDS ORDERED: fentaNYL citrate 100 MCG/2 ML VIAL ONE ×2 (11:29→13:07)
[2021-05-05] MEDS ORDERED: PROPOFOL IV EMULSION 10 MG/ML 20 ML VIAL IV ONE (11:29)
[2021-05-05] MEDS ORDERED: NEOSTIGMINE METHYLSULFATE 1 MG/ML 10ML VIAL ONE (11:29)
[2021-05-05] MEDS ORDERED: LIDOCAINE 2% 2 ML VIAL/AMP(20MG/ML) INFIL ONE (11:29)
[2021-05-05] MEDS ORDERED: D5W AND LACTATED RINGERS 1,000 ML IV SCH (11:40)
--- NOTE | 2021-05-05 11:40 | Anesthesiology Consultation ---
Date of Service May 05, 2021 Assessment & Plan (1) Encounter for pre-operative examination: Chart Review Chart Review: Acceptable Risk for Surgery and Patient NOT seen in Pre Admission Testing covid neg 04/27/21 Consults Requested none History Surgery Operation Date: 05/05/21 19:00 Proposed Procedures p Exploratory Laparotomy Possible Bowel Resection, Possible Ostomy - Nelda Russell MD Height/Weight Height: 5 ft Weight: 51.4 kg Allergies Allergy/AdvReac Type Severity Reaction Status Date / Time latex Allergy Mild blisters Verified 04/27/21 10:42 Medications Home Medications Medication Instructions Recorded Confirmed Last Taken citalopram 20 mg tablet 30 mg PO HS 02/16/18 04/27/21 04/26/21 ondansetron 4 mg disintegrating 4 mg PO Q6H PRN 04/27/21 04/27/21 04/27/21 07:30 tablet Active Medications Generic Name Dose Route Start Last Admin Trade Name Freq PRN Reason Stop Dose Admin Bisacodyl 10 mg 05/04/21 21:00 05/05/21 09:31 Bisacodyl 10 Mg Supp W[place] 05/07/21 09:01 10 mg BID MAREN Administration Docusate Sodium 100 mg 05/02/21 09:30 05/05/21 09:23 Docusate Sodium 100 Mg Cap PO 06/01/21 09:29 100 mg BID MAREN Administration Enoxaparin Sodium 30 mg 04/28/21 21:00 05/04/21 20:22 Enoxaparin Inj 30 Mg/0.3 Ml Syr SQ 05/28/21 20:59 30 mg HS MAREN Administration Protocol Ketorolac Tromethamine 10 mg 05/04/21 07:16 05/05/21 09:31 Ketorolac Tromethamine 15 Mg/Ml Vial IV 05/09/21 07:15 10 mg Q6H PRN Administration Pain Methylnaltrexone [place] 6 mg 05/04/21 09:00 05/05/21 09:23 Methylnaltrexone [place] 12 Mg/0.6 Ml Vial SQ 6 mg DAILY MAREN Administration Morphine Sulfate 2 mg 04/27/21 15:57 05/05/21 04:54 Morphine Sulfate 2 Mg/Ml Carp IV 05/11/21 15:56 2 mg Q4H PRN Administration Pain Ondansetron HCl 4 mg 04/27/21 15:53 05/05/21 09:31 Ondansetron Inj 2 Mg/Ml 2 Ml Vial IV 05/27/21 15:52 4 mg Q6H PRN Administration Nausea And Vomiting Polyethylene Glycol 17 gm 05/02/21 09:30 05/05/21 09:27 Polyethylene (Miralax) 17 Gm Pack PO 06/01/21 09:29 Not Given DAILY MAREN Past Medical History Medical History (Updated 05/05/21 @ 11:47 by Quentin Daugherty MD) Difficult airway for intubation Elevated troponin Essential hypertension Osteoporosis Reflux esophagitis Urge incontinence Past Family History Family History Other Family history non-contributory Past Surgical History Surgical History Status post Seferino fundoplication 2011 - Dr. Hedrick Social History Smoking Status: Never smoker Hx Alcohol Use: No Hx Substance Use: No Physical Exam Vital Signs Last Vital Signs Temp 36.7 C 05/05/21 11:18 Pulse 76 05/05/21 11:18 Resp 20 05/05/21 11:18 BP 154/79 H 05/05/21 11:18 Pulse Ox 95 05/05/21 11:18 Testing Laboratory Results 05/05/21 05:46 05/05/21 05:46 Urine Color Yellow 04/27/21 10:15 Urine Appearance Cloudy (Clear) A 04/27/21 10:15 Urine pH 7.5 (4.5-7.5) 04/27/21 10:15 Ur Specific [place] 1.018 (1.000-1.030) 04/27/21 10:15 Urine Protein 1+ (Negative) H 04/27/21 10:15 Urine Glucose (UA) Negative (Negative) 04/27/21 10:15 Urine Ketones 1+ (Negative) H 04/27/21 10:15 Urine Nitrite Negative (Negative) 04/27/21 10:15 Ur Leukocyte Esterase 3+ (Negative) H 04/27/21 10:15 Urine WBC (Auto) >30 /hpf (0-5) H 04/27/21 10:15 Urine RBC (Auto) 0-4 /hpf (0-4) 04/27/21 10:15 U Hyaline Cast (Auto) 1-5 /lpf (0-5) 04/27/21 10:15 U Epithel Cells (Auto) >30 /lpf (0-5) H 04/27/21 10:15 Urine Bacteria (Auto) 4+ (Negative) H 04/27/21 10:15 04/27/21 14:33 Aerobic Blood Culture - Final Blood No growth in Aerobic bottle after 5 days. Anaerobic Blood Culture - Final No growth in Anaerobic bottle after 5 days. 04/27/21 15:11 Aerobic Blood Culture - Final Blood No growth in Aerobic bottle after 5 days. Anaerobic Blood Culture - Final No growth in Anaerobic bottle after 5 days. 04/27/21 10:15 Urine Culture - Final Urine,Straight Cath Escherichia coli Group B Beta Strep Troponins: 04/27/21: 0.06 04/27/21: 0.11 04/27/21: 0.33 04/29/21: 0.08 Electrocardiogram Date: 04/28/21 DICTATED BY:Jose Oakes MD Test Reason : Blood Pressure : / mmHG Vent. Rate : 076 BPM Atrial Rate : 076 BPM P-R Int : 146 ms QRS Dur : 074 ms QT Int : 422 ms P-R-T Axes : 072 004 066 degrees QTc Int : 474 ms Normal sinus rhythm Normal ECG When compared with ECG of 27-APR-2021 09:50, No significant change was found Confirmed by Jose Oakes ([id number]) on 04/28/2021 5:04:58 PM Chest X-Ray Date: 04/27/21 AP CHEST WITH ABDOMINAL SERIES CLINICAL HISTORY: Follow-up abnormal abdominal radiograph. Assess for intra peritoneal free air. FINDINGS: An AP upright chest radiograph is compared to study dated 03/05/2018. The heart is enlarged. The pulmonary vasculature is noncongested. Chronic interstitial thickening is similar to previous. There is elevation of the left hemidiaphragm with bibasilar scarring/atelectasis. No airspace consolidation or pleural effusion is identified. No pneumothorax is seen. The skeletal structures are osteopenic. The bony thorax is grossly intact. Supine and erect abdominal radiographs are compared to study performed earlier the same day 04/29/2021 and correlated with abdominal CT dated 04/27/2021. There is moderate colonic fecal retention. Distended loops of small bowel measure up to 3.5 cm diameter and indicate persistent obstruction. No evidence of intraperitoneal free air is seen. There are no abnormal abdominal calcifications. Numerous phleboliths are seen throughout the pelvis. The lumbosacral spine and bony pelvis appear intact. There is advanced lumbosacral spondylosis and scoliosis. IMPRESSION: 1. Cardiomegaly with no active disease in the chest. 2. There is evidence of persistent small bowel obstruction. 3. No evidence of intraperitoneal free air is identified. Echocardiogram Date: 04/28/21 EF 60-65% LV wall motion is normal. Mild MR. Small loculated anterior pericardial effusion. No evidence of cardiac tamponade. No .
[2021-05-05] MEDS ORDERED: HYDROmorphone INJ 2 MG/ML SYR/VIAL IV PRN (11:44)
[2021-05-05] MEDS ORDERED: fentaNYL citrate 100 MCG/2 ML VIAL IV PRN (11:44)
[2021-05-05] MEDS ORDERED: ONDANSETRON INJ 2 MG/ML 2 ML VIAL IV PRN (11:44)
[2021-05-05] MEDS ORDERED: PROMETHAZINE HCL 12.5 MG in SODIUM CHLORIDE 0.9% 50 ML IV PRN (11:44)
[2021-05-05] MEDS ORDERED: ATROPINE SULFATE 0.1 MG/ML 10ML SYR IV PRN (11:44)
[2021-05-05] MEDS ORDERED: ePHEDrine sulfate 50 MG/ML AMP IV PRN (11:44)
[2021-05-05] MEDS: POTASSIUM CHLORIDE / WTR 10 MEQ/100 ML PLCT IV SCH (11:50)
[2021-05-05] MEDS ORDERED: BUPIVACAINE 0.5 % 5 MG/1 ML MPF 30ML VIAL ONE (12:24)
[2021-05-05] MEDS ORDERED: BACITRACIN OINT 15 GM TUBE ONE (12:24)
[2021-05-05] MEDS ORDERED: LIDOCAINE 1% LOCAL 20 ML VIAL ONE (12:24)
[2021-05-05] MEDS ORDERED: SUGAMMADEX SODIUM 200 MG/2 ML VIAL IV ONE (13:19)
[2021-05-05] MEDS ORDERED: LABETALOL HCL IV 5 MG/ML 20ML IV ONE (13:33)
--- NOTE | 2021-05-05 13:40 | Post Operative Brief Note ---
Immediate Post Op Note v1 Date of Surgery May 05, 2021 Pre & Post Diagnosis Operation Date: 05/05/21 17:50 Pre-Op Diagnosis: Partial small bowel obstruction Post-Op Diagnosis: Partial small bowel obstruction I identified the patient and participated in the time-out.: Yes Procedure Operation Date: 05/05/21 17:50 Actual Procedures p Exploratory Laparotomy, Lysis of adhesions(Not Applicable) - Nelda Russell MD Surgeon Nelda Russell MD Lockstitch Lining Maker TOM Peña Estimated Blood Loss 10 Findings Consistent with Post-Op Diagnosis SBO caused by adhesion Fluids 1000ml Drains Norman Catheter Anesthesia Type General Complications none Disposition Accompanied Patient To Recovery: Yes
[2021-05-05] MEDS ORDERED: SODIUM CHLORIDE 0.9% 50 ML BAG ONE ×2 (14:42→14:45)
[2021-05-05] MEDS ORDERED: PROMETHAZINE HCL INJ 25 MG/ML 1 ML VIAL ONE (14:42)
--- NOTE | 2021-05-05 14:50 | Operative Report (OR) ---
DATE OF PROCEDURE: 05/05/2021 PREOPERATIVE DIAGNOSIS: Small bowel obstruction. POSTOPERATIVE DIAGNOSIS: Small bowel obstruction. OPERATION: Exploratory laparotomy, lysis of adhesion. SURGEON: Nelda Russell MD. CASH ACCOUNTING CLERK: Debby Santillan PA-C. ANESTHESIA: General. ESTIMATED BLOOD LOSS: About 10 mL FINDINGS: Small bowel obstruction. COMPLICATIONS: None. INDICATIONS FOR THE PROCEDURE: This is an 85-year-old female who was admitted to the hospital for sm all-bowel obstruction and the patient had conservative treatment and after eight days, the patient wa s still not fully recovered, still has a lot of pain. The KUB shows the patient still has a small-bow el obstruction, so I recommended to do exploratory laparotomy, possible bowel resection, possible sto ma. I did talk to the patient and patient's son about the benefit, risk, alternate procedure. I ind icated the risks may include, but not limited to, such as bleeding, infection, injury to other organs , injury to the bowel, incisional hernia, myocardial infarction, DVT, stroke, even . They under stand. The patient signed informed consent and I answered all questions. DETAILS OF PROCEDURE: After we identified the patient and verified the procedure, we brought the pat ient to the OR, and put the patient in the supine position on the OR table. The patient received SCD on bilateral legs to prevent DVT. Also, patient received 2 grams of Ancef IV for prophylactic antib iotic. The patient received general anesthesia without difficulty. Also, patient received a Norman c atheter insertion. Abdomen was prepped and draped in routine sterile fashion. After timeout, I used the midline of the old incision to remove some old scar making an incision about 10 cm long and getti ng in the abdomen without difficulty and we found the patient had dilated small bowel, we followed al l small bowel, found the patient had one adhesion caused a small-bowel obstruction and I used the Thomas emma scalpel to take down the adhesion then small bowel released the obstruction and the proximal go to the distal. Then, we rechecked, no other adhesion and hemostasis obtained, then I closed the abdominal fascial [place] by using 0 PDS continuous running, and closed subcutaneous layer by using 2-0 Vicryl continuous r unning, closed skin by using staple. Then, we put the dressing on. The patient tolerated the proced ure well. All instrument, needle and sponge counts were correct x2 at the end of the case. The gio ent was transferred to recovery room in stable condition. After the procedure, I did talk to the pat ient and patient's family member about the OR finding and the procedure we did, they understand. The records assistant, Debby, is necessary for this procedure. Her role was exposure and retraction. Job ID: [id number]
--- NOTE | 2021-05-05 15:05 | Anesthesiology Progress Note ---
Date of Service May 05, 2021 Anesthesia Post Procedure Vital Signs Vital Signs: Temp Pulse Pulse Resp BP BP Pulse Ox 05/05/21 14:55 37.3 C 76 14 129/69 95 05/05/21 14:45 77 17 147/75 H 95 05/05/21 14:35 69 20 123/73 98 05/05/21 14:25 69 18 140/71 100 05/05/21 14:15 64 18 133/69 100 05/05/21 14:05 63 12 153/74 H 100 05/05/21 13:56 36.2 C L 64 12 163/80 H 98 05/05/21 12:00 36.9 C 82 20 182/95 H 96 05/05/21 11:18 36.7 C 76 20 154/79 H 95 05/05/21 09:19 136/76 05/05/21 08:00 36.4 C L 81 20 187/109 H 192/115 H 97 05/04/21 23:00 37.0 C 84 20 144/83 H 96 Pain Intensity Bilateral Upper Abdomen: Pain Intensity: 9 Transfer of Care Handoff Completed per policy Notes Mental Status: alert / awake / arousable and participated in evaluation Patient Amnestic to Procedure: Yes Nausea / Vomiting: adequately controlled Pain: adequately controlled Airway Patency, RR, SpO2: stable & adequate BP & HR: stable & adequate Hydration State: stable & adequate Anesthetic Complications: no major complications apparent
[2021-05-05] MEDS ORDERED: ONDANSETRON 4 MG OD TAB PO PRN (16:15)
[2021-05-05] MEDS: D5W AND 1/2NSS + 20MEQ KCL 20 MEQ/1,000 ML BAG IV SCH (18:03)
[2021-05-05] MEDS: ceFAZolin 1000MG 1,000 MG/7.5 ML SYR IV SCH (18:03)
--- NOTE | 2021-05-05 18:17 | Hospitalist Progress Note ---
Date of Service May 05, 2021 Assessment & Plan (1) Partial small bowel obstruction: Plan: (1) Partial small bowel obstruction: Plan: continue conservative management Continue with bowel regimen, patient will likely need upon discharge as well. 05/02: 2 moderate BM 05/03: 3 loose BM 05/03 KUB XR: persistent small bowel obstruction 05/04: No further bowel movement after 05/03, patient continues to report belly pain overnight requiring pain medication and also in the morning requiring pain medication 05/05: Status post exploratory laparotomy and lysis of adhesion for small bowel obstruction by Nelda Chun XR KUB reviewed and shows persitent bowel obstruction c/w IV fluid, PT/OT, n.p.o. diet per surgery, pain management, nausea control, supportive management. F/u with Sx as OP. 2) Elevated troponin: Plan: -denies chest pain, shortness of breath -TTE no wall motion abnormalities (3) Repeated falls: Plan: PT/OT (4) Urinary tract infection symptoms: Plan: -Pansensitive E coli -s/p ceftriaxone DVT ppx -SQ lovenox #. Hypokalemia #. Hypophosphatemia -Monitor and replete as appropriate. Dispo: med/surg, PT/OT, CM to assist with DC planning. Pending improvement in her bowel function. 05/03: Patient son was at bedside during the afternoon, was updated about patient's current status including the option of surgery if she does not improve, answered all his questions, he voiced understanding and was agreeable to the plan of care. Admission and Anticipated Discharge Date Admission Date: April 27, 2021 Subjective Patient seen and examined at bedside for f/u of partial small bowel obstruction. Patient lying in bed, on room air, NAD, patient reports severe belly pain again overnight requiring pain medications, d/w surgery taking for surgery. Patient does not report any further bowel movement from day before yesterday morning, neither she has gas. Patient denies fever/headache/chills/chest pain/palpitation/other review of symptoms. Physical Exam Physical Exam: GENERAL: Alert and oriented x3. NAD, on RA. HEENT: No pallor, no icterus. Pupils equal, round and reactive to light. Oral mucosa moist. NECK: No JVD, no neck masses. HEART: S1 and S2 heard. Regular rate and rhythm. No murmur, no gallop. RESPIRATORY SYSTEM: Normal AP diameter. No accessory muscle use. No wheezing, no crackles. ABDOMEN: Soft, bowel sounds present, + tender, mildly tense. CENTRAL NERVOUS SYSTEM: No facial droop. Speech is clear. Obeys simple commands. Moves extremities. EXTREMITIES: No edema, no erythema seen. Results & Data Results & Data ([facility]) Vital Signs (Past 12 Hours) Vital Signs Temp Pulse Pulse Resp BP BP Pulse Ox 05/05/21 15:05 73 13 126/69 94 05/05/21 14:55 37.3 C 76 14 129/69 95 05/05/21 14:45 77 17 147/75 H 95 05/05/21 14:35 69 20 123/73 98 05/05/21 14:25 69 18 140/71 100 05/05/21 14:15 64 18 133/69 100 05/05/21 14:05 63 12 153/74 H 100 05/05/21 13:56 36.2 C L 64 12 163/80 H 98 05/05/21 12:00 36.9 C 82 20 182/95 H 96 05/05/21 11:18 36.7 C 76 20 154/79 H 95 05/05/21 09:19 136/76 05/05/21 08:00 36.4 C L 81 20 187/109 H 192/115 H 97
[2021-05-05] MEDS: CITALOPRAM 20 MG TAB PO SCH (21:13)
[2021-05-06] MEDS: ceFAZolin 1000MG 1,000 MG/7.5 ML SYR IV SCH ×3 (02:12→18:30)
[2021-05-06] MEDS: D5W AND 1/2NSS + 20MEQ KCL 20 MEQ/1,000 ML BAG IV SCH ×2 (06:28→18:34)
[2021-05-06 06:44] LABS: Hematocrit (blood only) 29.6 % (37-47); Mean Corpuscular Hemoglobin 25.6 pg (25-34); Mean Corpuscular Hgb Conc 30.4 g/dL (32-36); Mean Corpuscular Volume 84.1 fL (80-100); Mean Platelet Volume 10.6 fL (7.4-10.4); Platelet Count 249 K/uL (130-400); RDW Coefficient of Variation 16.4 % (11.5-14.5); RDW Standard Deviation 49.9 fL (36.4-46.3); Red Blood Count 3.52 M/uL (4.2-5.4)
[2021-05-06] MEDS: ONDANSETRON INJ 2 MG/ML 2 ML VIAL IV PRN ×2 (07:27→18:26)
[2021-05-06] MEDS: POLYETHYLENE (MIRALAX) 17 GM PACK PO SCH (07:28)
[2021-05-06] MEDS: bisacodyL 10 MG SUPP PR SCH ×2 (07:32→21:01)
[2021-05-06 07:54] LABS: BUN Creatinine Ratio 7.9 (10-20); Calcium 7.4 mg/dl (8.5-10.1); Creatinine Clr Calc Pharmacy 45.2 ml/min; Est GFR (African American) 93.5 ml/min; Est GFR (Non-African American) 80.6 ml/min; Magnesium 1.8 mg/dl (1.7-2.4)
--- NOTE | 2021-05-06 08:43 | Hospitalist Progress Note ---
Date of Service May 06, 2021 Assessment & Plan (1) Partial small bowel obstruction: Plan: (1) Partial small bowel obstruction: Plan: continue conservative management Continue with bowel regimen, patient will likely need upon discharge as well. 05/02: 2 moderate BM 05/03: 3 loose BM 05/03 KUB XR: persistent small bowel obstruction 05/04-05/05: No further bowel movement after 05/03, patient continues to report belly pain overnight requiring pain medication and also in the morning requiring pain medication 05/05 XR KUB reviewed and shows persitent bowel obstruction 05/05: Status post exploratory laparotomy and lysis of adhesion for small bowel obstruction by Nelda Chun c/w IV fluid, PT/OT, n.p.o. diet per surgery, pain management, nausea control, supportive management. c/w NG tube. No gas and no BM after Sx so far. Will continue to monitor. F/u with Sx as OP. 2) Elevated troponin: Plan: -denies chest pain, shortness of breath -TTE no wall motion abnormalities (3) Repeated falls: Plan: PT/OT (4) Urinary tract infection symptoms: Plan: -Pansensitive E coli -s/p ceftriaxone DVT ppx lovenox on hold, Re- exp laparotomy #. Hypokalemia #. Hypophosphatemia -Monitor and replete as appropriate. Dispo: med/surg, PT/OT, CM to assist with DC planning. Pending improvement in her bowel function. 05/03: Patient son was at bedside during the afternoon, was updated about patient's current status including the option of surgery if she does not improve, answered all his questions, he voiced understanding and was agreeable to the plan of care. Admission and Anticipated Discharge Date Admission Date: April 27, 2021 Subjective Patient seen and examined at bedside for f/u of partial small bowel obstruction. Patient lying in bed, on room air, NAD, reports improvement in belly discomfort or pain significantly, no bowel movements or gas so far after surgery. Patient reports improvement in her nausea vomiting. Patient denies fever/headache/chills/chest pain/palpitation/other review of symptoms. Physical Exam Physical Exam: GENERAL: Alert and oriented x3. NAD, on RA. HEENT: No pallor, no icterus. Pupils equal, round and reactive to light. Oral mucosa moist. NECK: No JVD, no neck masses. HEART: S1 and S2 heard. Regular rate and rhythm. No murmur, no gallop. RESPIRATORY SYSTEM: Normal AP diameter. No accessory muscle use. No wheezing, no crackles. ABDOMEN: Soft, bowel sounds present, Clean dressing without soakage noted, decreased belly distension from prior. CENTRAL NERVOUS SYSTEM: No facial droop. Speech is clear. Obeys simple comm ands. Moves extremities. EXTREMITIES: No edema, no erythema seen. Results & Data Results & Data ([facility]) Vital Signs (Past 12 Hours) Vital Signs Temp Pulse Pulse Pulse Resp BP Pulse Ox 05/06/21 07:00 37.3 C 82 20 163/80 H 93 05/06/21 04:00 37.0 C 77 18 138/72 93 05/06/21 02:41 76 05/06/21 00:00 37.1 C 82 18 120/65 94
--- NOTE | 2021-05-06 11:23 | Surgery Progress Note ---
Date of Service May 06, 2021 Assessment & Plan (1) Partial small bowel obstruction: Plan: PSBO vs Ileus Fecal retention in colon KUB today showing small bowel distention up to 3 cm with moderate stool burden in colon (last bowel movement 9 days ago) Plan: No acute surgical intervention recommended at this time, continue conservative treatment given the mild nausea and distention would recommend continuing NPO status Bowel regimen per medicine team given stool burden in colon ambulate with assistance Dr. Vicente covering this weekend Dr. Russell was present during my examination and agrees with above. 05/01/2021 11:50AM Dr. russell F/U PSBO, not passed BM yet, I recommend to do small bowel follow -through, D/W benefits, risks and alternatives of the study, pt understood, she agrees with the study, possible surgery treatment if complete SBO, pt understood, I answered all questions, will F/U 05/02/2021 12:07PMDR. Russell passed 2 times BM, clear diet, will F/U, 05/03/2021 12:[address] Russell, F/U PSBO, passed some liquid stool, pt is still have some abdominal pain, no vomiting, most likely scar caused SBO, D/W possible exploratory laparotomy, lysis of adhesion possible bowel resection or stoma, if pt is still have abdominal pain in next 1-2 days, D/W benefits, risks and alternatives of the surgery, pt will Discuss with her son, continue clear diet now, will F/U 05/04/2021 12:25PM, F/U PSBO, doing better, passed BM tolerated clear diet, base on pt is high risk for surgery treatment, pt is not good candidate for surgery treatment, continue conservative treatment, pt can be discharged tomorrow if pt is doing fine, pt agrees with plan, pt dose not want to have surgery if she has to, I answered all questions, sign off today, please call with questions, thanks, F/U me 2 weeks, 05/05/2021 10: 21AM, DR. Russell F/U SBO, pt is still have abdominal pain, can not tolerated clear diet, failed conservative treatment for 8 days, Plan, I recommend to do exploratory laparotomy, possible bowel resection, or stoma, D/W benefits, risks and alternatives of the surgery, the risks - infection, bleeding, injury bowel to other organs, OR, DVT, stroke, , ( I also called pt's son Jani ) they understood, they agree with surgery , pt peg d informed consent, I answered all questions, NPO, Hold lovenox, correct low K, pre-op antibiotic, 05/06/2021 11: 48AM, DR. Russell F/U exp lap, lysis of adhesion, POD 1 pt is doing fine, keep NG tube today, continue treatment, will F/U, Admission and Anticipated Discharge Date Admission Date: April 27, 2021 Supervising Physician Co-Signing Physician Notes Patient is an 85-year-old female with history of degenerative joint disease, osteoporosis, GERD, and other medical problems presents with history of worsening abdominal pain since 1 day duration. Patient has history of laparoscopic Seferino fundoplication many years ago. Patient states her last bowel movement was more than a week ago. She admits to trying Dulcolax for constipation intermittently. Also reports nausea but no vomiting. Reports chills but no fever. Also denies any chest pain, shortness of breath. Please review HPI for complete details of presentation. Blood work suggestive of hemoglobin 10.7, troponin 0 0.06. Urinalysis suggestive of possible UTI. CT abdomen showed findings suggestive of partial small bowel obstruction also noted moderate fecal stasis, small hiatal hernia and mild abdominal pelvic ascites. On exam patient is elderly, ill-appearing, thin, no apparent distress, normocephalic atraumatic, EOMI, decreased breath sounds, clear to auscultation, S1-S2, no murmur, no pedal edema, abdomen distended, tender, decreased bowel sounds, voluntary guarding, alert, awake, oriented, grossly no focal deficits. Patient is admitted for management of partial small bowel obstruction. Also noted mild elevation of troponin likely secondary to elevated blood pressure. Urinalysis concerning for UTI. We will keep her n.p.o. for now. Pain control. IV fluids. Surgery consulted. Will give tap water enema for fecal stasis. Consider NG tube placement if needed. Agree with trending cardiac enzymes, check echo and repeat EKG in the morning. I personally reviewed the record. Patient is interviewed and examined at bedside. Patient's care is coordinated with Irena Lehman PA-C. Please refer to the documentation above for details of patient's presentation and for discussion of other issues. Subjective Patient seen and examined at bedside for f/u of partial small bowel obstruction. Patient lying in bed, on room air, NAD, patient reports severe belly pain again overnight requiring pain medications, d/w surgery taking for surgery. Patient does not report any further bowel movement from day before yesterday morning, neither she has gas. Patient denies fever/headache/chills/chest pain/palpitation/other review of symptoms. 05/06/2021 11:46AM, Dr. Russell F/U S/P exp lap, lysis of adhesion, for SBO, POD 1 pt is doing fine, feels better, no significant abdominal pain, NG - 300ml, no blood, not passed gas on BM yet, Physical Exam Constitutional: WD/WN, vitals as above Eyes: PERRL, conjunctivae normal, anicteric sclerae Neck: trachea midline, no thyromegaly Respiratory: normal respiratory effort, lungs clear to auscultation Cardiovascular: RRR, no murmur, no edema Gastrointestinal (Abdomen): soft, mild tenderness at incision site, no dis tend, BS +, no rebound pain, Musculoskeletal: no cyanosis or clubbing, extremities motor strength 5/5 Neurologic: patellar DTR's 2+ bilat, sensation intact Psychiatric: A+Ox3, euthymic affect Results & Data ([facility]) Vital Signs (Past 12 Hours) Vital Signs Temp Pulse Pulse Pulse Resp BP Pulse Ox 05/06/21 07:00 37.3 C 82 20 163/80 H 93 05/06/21 04:00 37.0 C 77 18 138/72 93 05/06/21 02:41 76 05/06/21 00:00 37.1 C 82 18 120/65 94 Laboratory Results Abnormal lab results 05/06/21 05/06/21 Range/Units 05:39 05:39 RBC 3.52 L (4.2-5.4) M/uL Hgb 9.0 L (12.0-16.0) g/dL Hct 29.6 L (37-47) % MCHC 30.4 L (32-36) g/dL RDW Std Deviation 49.9 H (36.4-46.3) fL RDW Coeff of Kayli 16.4 H (11.5-14.5) % MPV 10.6 H (7.4-10.4) fL BUN 5 L (6-23) mg/dl BUN/Creatinine Ratio 7.9 L (10-20) Glucose 112 H (70-99(Fasting)) mg/dl Calcium 7.4 L (8.5-10.1) mg/dl
[2021-05-06] MEDS: MoRPHine SULFATE 2 MG/ML CARP IV PRN (12:02)
[2021-05-06] MEDS: CITALOPRAM 20 MG TAB PO SCH (21:01)
[2021-05-06] MEDS: KETOROLAC TROMETHAMINE 15 MG/ML VIAL IV PRN (21:41)
[2021-05-07] MEDS: ceFAZolin 1000MG 1,000 MG/7.5 ML SYR IV SCH ×2 (03:23→08:57)
[2021-05-07] MEDS: D5W AND 1/2NSS + 20MEQ KCL 20 MEQ/1,000 ML BAG IV SCH ×2 (07:13→19:20)
[2021-05-07] MEDS: POLYETHYLENE (MIRALAX) 17 GM PACK PO SCH (08:53)
[2021-05-07] MEDS: bisacodyL 10 MG SUPP PR SCH (08:57)
[2021-05-07 09:01] LABS: Hematocrit (blood only) 30.2 % (37-47); Hemoglobin 8.9 g/dL (12.0-16.0); Mean Corpuscular Hemoglobin 24.9 pg (25-34); Mean Corpuscular Hgb Conc 29.5 g/dL (32-36); Mean Corpuscular Volume 84.6 fL (80-100); Mean Platelet Volume 10.5 fL (7.4-10.4); Platelet Count 239 K/uL (130-400); RDW Coefficient of Variation 16.2 % (11.5-14.5); RDW Standard Deviation 49.4 fL (36.4-46.3); Red Blood Count 3.57 M/uL (4.2-5.4); White Blood Count 5.35 K/uL (4.8-10.8)
[2021-05-07 09:23] LABS: BUN Creatinine Ratio 6.6 (10-20); Calcium 7.4 mg/dl (8.5-10.1); Creatinine Clr Calc Pharmacy 46.7 ml/min; Est GFR (African American) 94.5 ml/min; Est GFR (Non-African American) 81.5 ml/min; Magnesium 1.8 mg/dl (1.7-2.4); Phosphorus 2.8 mg/dl (2.5-4.9); Potassium 3.9 mmol/L (3.5-5.1)
[2021-05-07] MEDS ORDERED: bisacodyL 10 MG SUPP PR STA (11:28)
--- NOTE | 2021-05-07 11:28 | Surgery Progress Note ---
Date of Service May 07, 2021 Assessment & Plan (1) Partial small bowel obstruction: Plan: PSBO vs Ileus Fecal retention in colon KUB today showing small bowel distention up to 3 cm with moderate stool burden in colon (last bowel movement 9 days ago) Plan: No acute surgical intervention recommended at this time, continue conservative treatment given the mild nausea and distention would recommend continuing NPO status Bowel regimen per medicine team given stool burden in colon ambulate with assistance Dr. Vicente covering this weekend Dr. Contreras was present during my examination and agrees with above. 05/01/2021 11:50AM Dr. contreras F/U PSBO, not passed BM yet, I recommend to do small bowel follow -through, D/W benefits, risks and alternatives of the study, pt understood, she agrees with the study, possible surgery treatment if complete SBO, pt understood, I answered all questions, will F/U 05/02/2021 12:07PMDR. Contreras passed 2 times BM, clear diet, will F/U, 05/03/2021 12:[address] Contreras, F/U PSBO, passed some liquid stool, pt is still have some abdominal pain, no vomiting, most likely scar caused SBO, D/W possible exploratory laparotomy, lysis of adhesion possible bowel resection or stoma, if pt is still have abdominal pain in next 1-2 days, D/W benefits, risks and alternatives of the surgery, pt will Discuss with her son, continue clear diet now, will F/U 05/04/2021 12:25PM, F/U PSBO, doing better, passed BM tolerated clear diet, base on pt is high risk for surgery treatment, pt is not good candidate for surgery treatment, continue conservative treatment, pt can be discharged tomorrow if pt is doing fine, pt agrees with plan, pt dose not want to have surgery if she has to, I answered all questions, sign off today, please call with questions, thanks, F/U me 2 weeks, 05/05/2021 10: 21AM, DR. Contreras F/U SBO, pt is still have abdominal pain, can not tolerated clear diet, failed conservative treatment for 8 days, Plan, I recommend to do exploratory laparotomy, possible bowel resection, or stoma, D/W benefits, risks and alternatives of the surgery, the risks - infection, bleeding, injury bowel to other organs, VA, DVT, stroke, , ( I also called pt's son Jani ) they understood, they agree with surgery , pt peg d informed consent, I answered all questions, NPO, Hold lovenox, correct low K, pre-op antibiotic, 05/06/2021 11: 48AM, DR. Contreras F/U exp lap, lysis of adhesion, POD 1 pt is doing fine, keep NG tube today, continue treatment, will F/U, 04/17/2021 11:26AM Dr. Contreras F/U exp lap, lysis of adhesion, POD 1 pt is doing fine, put out NG tube, D/C valentine, clear diet, OOB will F/U, Admission and Anticipated Discharge Date Admission Date: April 27, 2021 Supervising Physician Co-Signing Physician Notes Patient is an 85-year-old female with history of degenerative joint disease, osteoporosis, GERD, and other medical problems presents with history of worsening abdominal pain since 1 day duration. Patient has history of laparoscopic Seferino fundoplication many years ago. Patient states her last bowel movement was more than a week ago. She admits to trying Dulcolax for constipation intermittently. Also reports nausea but no vomiting. Reports chills but no fever. Also denies any chest pain, shortness of breath. Please review HPI for complete details of presentation. Blood work suggestive of hemoglobin 10.7, troponin 0 0.06. Urinalysis suggestive of possible UTI. CT abdomen showed findings suggestive of partial small bowel obstruction also noted moderate fecal stasis, small hiatal hernia and mild abdominal pelvic ascites. On exam patient is elderly, ill-appearing, thin, no apparent distress, normocephalic atraumatic, EOMI, decreased breath sounds, clear to auscultation, S1-S2, no murmur, no pedal edema, abdomen distended, tender, decreased bowel sounds, voluntary guarding, alert, awake, oriented, grossly no focal deficits. Patient is admitted for management of partial small bowel obstruction. Also noted mild elevation of troponin likely secondary to elevated blood pressure. Urinalysis concerning for UTI. We will keep her n.p.o. for now. Pain control. IV fluids. Surgery consulted. Will give tap water enema for fecal stasis. Consider NG tube placement if needed. Agree with trending cardiac enzymes, wong ck echo and repeat EKG in the morning. I personally reviewed the record. Patient is interviewed and examined at bedside. Patient's care is coordinated with Irena Lehman PA-C. Please refer to the documentation above for details of patient's presentation and for discussion of other issues. Subjective Patient seen and examined at bedside for f/u of partial small bowel obstruction. Patient lying in bed, on room air, NAD, reports improvement in belly discomfort or pain significantly, no bowel movements or gas so far after surgery. Patient reports improvement in her nausea vomiting. Patient denies fever/headache/chills/chest pain/palpitation/other review of symptoms. 05/07/2021 11:23AM, Drew JEFFREY F/U S/P exp lap, lysis of adhesion, POD 2, doing better, no significant abdominal pain, no fever, NG tube 50ml, not pass gas or stool yet, Physical Exam Constitutional: WD/WN, vitals as above Eyes: PERRL, conjunctivae normal, anicteric sclerae Neck: trachea midline, no thyromegaly Respiratory: normal respiratory effort, lungs clear to auscultation Cardiovascular: RRR, no murmur, no edema Gastrointestinal (Abdomen): soft, mild tenderness at incision site, no rebound pain, incision intact, no redness, BS +, no distend Musculoskeletal: no cyanosis or clubbing, extremities motor strength 5/5 Neurologic: patellar DTR's 2+ bilat, sensation intact Psychiatric: A+Ox3, euthymic affect Results & Data ([facility]) Vital Signs (Past 12 Hours) Vital Signs Temp Pulse Resp BP Pulse Ox 05/07/21 11:12 36.9 C 82 20 143/82 H 95 05/07/21 07:15 36.8 C 79 18 142/85 H 92 05/07/21 03:52 36.9 C 79 18 158/84 H 92 05/06/21 23:25 37.1 C 83 18 137/77 93 Laboratory Results Abnormal lab results 05/07/21 05/07/21 Range/Units 08:16 08:16 RBC 3.57 L (4.2-5.4) M/uL Hgb 8.9 L (12.0-16.0) g/dL Hct 30.2 L (37-47) % MCH 24.9 L (25-34) pg MCHC 29.5 L (32-36) g/dL RDW Std Deviation 49.4 H (36.4-46.3) fL RDW Coeff of Kayli 16.2 H (11.5-14.5) % MPV 10.5 H (7.4-10.4) fL Anion Gap 2 L (3-11) BUN 4 L (6-23) mg/dl BUN/Creatinine Ratio 6.6 L (10-20) Glucose 102 H (70-99(Fasting)) mg/dl Calcium 7.4 L (8.5-10.1) mg/dl
--- NOTE | 2021-05-07 18:56 | Hospitalist Progress Note ---
Date of Service May 07, 2021 Assessment & Plan (1) Partial small bowel obstruction: Plan: (1) Partial small bowel obstruction: Plan: continue conservative management Continue with bowel regimen, patient will likely need upon discharge as well. 05/02: 2 moderate BM 05/03: 3 loose BM 05/03 KUB XR: persistent small bowel obstruction 05/04-05/05: No further bowel movement after 05/03, patient continues to report belly pain overnight requiring pain medication and also in the morning requiring pain medication 05/05 XR KUB reviewed and shows persitent bowel obstruction 05/05: Status post exploratory laparotomy and lysis of adhesion for small bowel obstruction by Nelda Chun c/w IV fluid, NG tube and diet per Sx, nausea control, supportive management. No gas and no BM after Sx so far. Will continue to monitor. On Clears per Sx rec. F/u with Sx as OP. 2) Elevated troponin: Plan: -denies chest pain, shortness of breath -TTE no wall motion abnormalities (3) Repeated falls: Plan: PT/OT (4) Urinary tract infection symptoms: Plan: -Pansensitive E coli -s/p ceftriaxone DVT ppx Heparin #. Hypokalemia #. Hypophosphatemia -Monitor and replete as appropriate. Dispo: med/surg, PT/OT, CM to assist with DC planning. Pending improvement in her bowel function. 05/03: Patient son was at bedside during the afternoon, was updated about patient's current status including the option of surgery if she does not improve, answered all his questions, he voiced understanding and was agreeable to the plan of care. Admission and Anticipated Discharge Date Admission Date: April 27, 2021 Subjective Patient seen and examined at bedside for f/u of partial small bowel obstruction. She is s/p exp lap and lysis of adhesion Patient lying in bed, on room air, NAD, reports improvement in belly discomfort or pain significantly, no bowel movements or gas so far after surgery. Patient reports improvement in her nausea vomiting.NG tube in situ. Patient denies fever/headache/chills/chest pain/palpitation/other review of symptoms. Physical Exam Physical Exam: GENERAL: Alert and oriented x3. NAD, on RA. HEENT: No pallor, no icterus. Pupils equal, round and reactive to light. Oral mucosa moist. NECK: No JVD, no neck masses. HEART: S1 and S2 heard. Regular rate and rhythm. No murmur, no gallop. RESPIRATORY SYSTEM: Normal AP diameter. No accessory muscle use. No wheezing, no crackles. ABDOMEN: Soft, bowel sounds present, Clean dressing without soakage noted, decreased belly distension from prior. NO tenderness on superficial palpation. CENTRAL NERVOUS SYSTEM: No facial droop. Speech is clear. Obeys simple commands. Moves extremities. EXTREMITIES: No edema, no erythema seen. Results & Data Results & Data ([facility]) Vital Signs (Past 12 Hours) Vital Signs Temp Pulse Resp BP Pulse Ox 05/07/21 15:49 36.8 C 80 20 152/85 H 94 05/07/21 11:12 36.9 C 82 20 143/82 H 95 05/07/21 07:15 36.8 C 79 18 142/85 H 92
[2021-05-07] MEDS: KETOROLAC TROMETHAMINE 15 MG/ML VIAL IV PRN (20:33)
[2021-05-07] MEDS: CITALOPRAM 20 MG TAB PO SCH (20:38)
[2021-05-07] MEDS: HEPARIN SOD 5,000 UNIT/0.5 ML VIAL SQ SCH (20:39)
[2021-05-08 07:14] LABS: Hematocrit (blood only) 30.2 % (37-47); Hemoglobin 9.1 g/dL (12.0-16.0); Mean Corpuscular Hemoglobin 25.4 pg (25-34); Mean Corpuscular Hgb Conc 30.1 g/dL (32-36); Mean Corpuscular Volume 84.4 fL (80-100); Mean Platelet Volume 10.7 fL (7.4-10.4); Platelet Count 269 K/uL (130-400); RDW Coefficient of Variation 16.2 % (11.5-14.5); RDW Standard Deviation 49.3 fL (36.4-46.3); Red Blood Count 3.58 M/uL (4.2-5.4); White Blood Count 4.78 K/uL (4.8-10.8)
[2021-05-08 07:47] LABS: BUN Creatinine Ratio 9.8 (10-20); Calcium 7.6 mg/dl (8.5-10.1); Creatinine Clr Calc Pharmacy 55.8 ml/min; Est GFR (African American) 100.2 ml/min; Est GFR (Non-African American) 86.5 ml/min; Magnesium 1.8 mg/dl (1.7-2.4); Phosphorus 2.5 mg/dl (2.5-4.9); Potassium 3.8 mmol/L (3.5-5.1)
[2021-05-08] MEDS: D5W AND 1/2NSS + 20MEQ KCL 20 MEQ/1,000 ML BAG IV SCH ×2 (07:58→20:11)
[2021-05-08] MEDS: HEPARIN SOD 5,000 UNIT/0.5 ML VIAL SQ SCH ×2 (09:12→20:12)
[2021-05-08] MEDS: POLYETHYLENE (MIRALAX) 17 GM PACK PO SCH ×2 (09:12→09:51)
--- NOTE | 2021-05-08 11:37 | Surgery Progress Note ---
Date of Service May 08, 2021 Assessment & Plan (1) Partial small bowel obstruction: Plan: POD # 3 s/p ex lap, lysis of adhesion causing SBO -afebrile, vss - abdomen distended - + bowel function this am - + nausea with liquids Plan: Continue clear liquids, advised to go slow continue pain management as needed needs to ambulate more to increase GI motility will have PT/OT see patient again since they have not seen since prior to surgery SCDs and Heparin for DVT prophylaxis incentive spirometry ordered Discussed with Dr. Russell who agrees with above. Admission and Anticipated Discharge Date Admission Date: April 27, 2021 Subjective Feeling tired today had gas and liquid stool this am at 4 am but nothing since still having nausea with liquids but seems this has been baseline for past 1 month at home does not feel bloated has not ambulated hallway or worked with PT since surgery Physical Exam Constitutional: WD/WN, vitals as above Neck: normal visual inspection and trachea midline Respiratory: normal respiratory effort; no respiratory distress Gastrointestinal (Abdomen): Inspection/Auscultation: + abdomen distended and + hypoactive bowel sounds Percussion/Palpation: + abdomen tender (at midline incision) and abdomen soft; no guarding and abdomen not rigid Skin: no rashes, warm and dry + incision (clean, dry, intact with erik) Psychiatric: Orientation: alert and oriented x 3 Results & Data ([facility]) Vital Signs (Past 12 Hours) Vital Signs Temp Pulse Pulse Pulse Resp BP Pulse Ox 05/08/21 07:25 36.7 C 75 18 150/82 H 93 05/08/21 06:20 81 05/08/21 04:28 36.8 C 77 18 154/72 H 95 Laboratory Results 05/08/21 05/08/21 Range/Units 06:22 06:22 WBC 4.78 L (4.8-10.8) K/uL RBC 3.58 L (4.2-5.4) M/uL Hgb 9.1 L (12.0-16.0) g/dL Hct 30.2 L (37-47) % MCV 84.4 (80-100) fL MCH 25.4 (25-34) pg MCHC 30.1 L (32-36) g/dL RDW Std Deviation 49.3 H (36.4-46.3) fL RDW Coeff of Kayli 16.2 H (11.5-14.5) % Plt Count 269 (130-400) K/uL MPV 10.7 H (7.4-10.4) fL Sodium 138 (136-145) mmol/L Potassium 3.8 (3.5-5.1) mmol/L Chloride 105 (98-107) mmol/L Carbon Dioxide 30 (21-32) mmol/L Anion Gap 3 (3-11) BUN 5 L (6-23) mg/dl Creatinine 0.51 L (0.6-1.2) mg/dl Est Cr Clr Drug Dosing 55.8 ml/min Est GFR ( Amer) 100.2 ml/min Est GFR (Non-Af Amer) 86.5 ml/min BUN/Creatinine Ratio 9.8 L (10-20) Glucose 103 H (70-99(Fasting)) mg/dl Calcium 7.6 L (8.5-10.1) mg/dl Phosphorus 2.5 (2.5-4.9) mg/dl Magnesium 1.8 (1.7-2.4) mg/dl
--- NOTE | 2021-05-08 18:08 | Hospitalist Progress Note ---
Date of Service May 08, 2021 Assessment & Plan (1) Partial small bowel obstruction: Plan: (1) Partial small bowel obstruction: Plan: continue conservative management Continue with bowel regimen, patient will likely need upon discharge as well. 05/02: 2 moderate BM 05/03: 3 loose BM 05/03 KUB XR: persistent small bowel obstruction 05/04-05/05: No further bowel movement after 05/03, patient continues to report belly pain overnight requiring pain medication and also in the morning requiring pain medication 05/05 XR KUB reviewed and shows persitent bowel obstruction 05/05: Status post exploratory laparotomy and lysis of adhesion for small bowel obstruction by Nelda Chun 05/08: Had 1 bowel movement early in the morning., Patient eating very little. Denies nausea or vomiting. c/w IV fluid, diet per Sx, nausea control, supportive management. We will increase bowel regimen and add Tums [patient reports gastritis improving with Tums in the past], continue to monitor. On Clears per Sx rec. F/u with Sx as OP. Monitor and replete electrolytes as appropriate. 2) Elevated troponin: Plan: -denies chest pain, shortness of breath -TTE no wall motion abnormalities (3) Repeated falls: Plan: PT/OT (4) Urinary tract infection symptoms: Plan: -Pansensitive E coli -s/p ceftriaxone DVT ppx Heparin #. Hypokalemia #. Hypophosphatemia -Monitor and replete as appropriate. Dispo: med/surg, PT/OT, CM to assist with DC planning. Pending improvement in her bowel function. 05/03: Patient son was at bedside during the afternoon, was updated about patient's current status including the option of surgery if she does not improve, answered all his questions, he voiced understanding and was agreeable to the plan of care. Admission and Anticipated Discharge Date Admission Date: April 27, 2021 Subjective Patient seen and examined at bedside for f/u of partial small bowel obstruction. She is s/p exp lap and lysis of adhesion Patient sitting up in chair, on room air, NAD, per RN eating very less, had 1 bowel movement in the morning, still has some belly discomfort. Patient reports improvement in her nausea vomiting. Patient denies fever/headache/chills/chest pain/palpitation/other review of symptoms. Physical Exam Physical Exam: GENERAL: Alert and oriented x3. NAD, on RA. HEENT: No pallor, no icterus. Pupils equal, round and reactive to light. Oral mucosa moist. NECK: No JVD, no neck masses. HEART: S1 and S2 heard. Regular rate and rhythm. No murmur, no gallop. RESPIRATORY SYSTEM: Normal AP diameter. No accessory muscle use. No wheezing, no crackles. ABDOMEN: Soft, bowel sounds present, Clean dressing without soakage noted, decreased belly distension from prior. NO tenderness on superficial palpation. CENTRAL NERVOUS SYSTEM: No facial droop. Speech is clear. Obeys simple commands. Moves extremities. EXTREMITIES: No edema, no erythema seen. Results & Data Results & Data ([facility]) Vital Signs (Past 12 Hours) Vital Signs Temp Pulse Pulse Pulse Resp BP BP 05/08/21 14:57 36.8 C 87 20 156/97 H 05/08/21 14:15 80 05/08/21 11:10 36.4 C L 80 17 144/78 H 05/08/21 07:25 36.7 C 75 18 150/82 H 05/08/21 06:20 81 Pulse Ox 05/08/21 14:57 95 05/08/21 14:15 05/08/21 11:10 97 05/08/21 07:25 93 05/08/21 06:20
[2021-05-08] MEDS: CALCIUM CARBONATE 500 MG CHEWABLE TAB PO SCH (18:31)
[2021-05-08] MEDS: DOCUSATE SODIUM 100 MG CAP PO SCH (20:13)
[2021-05-08] MEDS: CITALOPRAM 20 MG TAB PO SCH (20:13)
[2021-05-09] MEDS: CALCIUM CARBONATE 500 MG CHEWABLE TAB PO SCH ×2 (06:05→18:02)
[2021-05-09 07:07] LABS: Magnesium 1.7 mg/dl (1.7-2.4); Phosphorus 2.6 mg/dl (2.5-4.9); Potassium 3.8 mmol/L (3.5-5.1)
[2021-05-09] MEDS: D5W AND 1/2NSS + 20MEQ KCL 20 MEQ/1,000 ML BAG IV SCH ×2 (09:09→21:49)
[2021-05-09] MEDS: DOCUSATE SODIUM 100 MG CAP PO SCH ×2 (09:10→20:41)
[2021-05-09] MEDS: HEPARIN SOD 5,000 UNIT/0.5 ML VIAL SQ SCH ×2 (09:10→20:41)
[2021-05-09] MEDS: POLYETHYLENE (MIRALAX) 17 GM PACK PO SCH ×2 (09:10→09:15)
[2021-05-09] MEDS: LOSARTAN POTASSIUM 25 MG TAB PO SCH (09:58)
--- NOTE | 2021-05-09 10:11 | Surgery Progress Note ---
Date of Service May 09, 2021 Assessment & Plan (1) Partial small bowel obstruction: Plan: POD # 4 s/p ex lap, lysis of adhesion causing SBO -afebrile, hypertensive this am , systolic BP 180's-190's + headache - abdomen mildly distended, soft, no peritonitis - + bowel function, passing more flatus today - + nausea , but seems chronic given history of robin Plan: Advance to full liquid diet, advised to go slow continue pain management as needed, try to avoid narcotics if possible needs to ambulate more to increase GI motility Pt/OT SCDs and Heparin for DVT prophylaxis incentive spirometry ordered Hospitalist to manage hypertension okay for stool softener, pt does not take the Miralax as it causes nausea nad gagging. Dr. Russell has seen and examined pt, agrees with above. Admission and Anticipated Discharge Date Admission Date: April 27, 2021 Subjective feeling better today but has headache, PT at bedside, repeat blood pressure 190 systolic, Medicine has ordered Losartan oral to give this morning. passing a lot of gas, still having nausea, normal per patient Physical Exam Constitutional: well developed and well nourished; no acute distress and not ill appearing Neck: normal visual inspection and trachea midline Respiratory: normal respiratory effort; no respiratory distress, no labored breathing and no retractions Gastrointestinal (Abdomen): Inspection/Auscultation: + abdomen distended (mild) Percussion/Palpation: abdomen soft; abdomen nontender, no guarding and abdomen not rigid Skin: no rashes, warm and dry Psychiatric: Orientation: alert and oriented x 3 Results & Data ([facility]) Vital Signs (Past 12 Hours) Vital Signs Temp Pulse Pulse Resp BP BP Pulse Ox 05/09/21 07:58 36.9 C 74 20 186/88 H 95 05/09/21 07:14 73 05/09/21 03:05 36.8 C 78 18 181/93 H 179/78 H 93 05/08/21 23:20 36.8 C 79 18 182/96 H 171/85 H 95 Laboratory Results 05/09/21 Range/Units 05:32 Potassium 3.8 (3.5-5.1) mmol/L Phosphorus 2.6 (2.5-4.9) mg/dl Magnesium 1.7 (1.7-2.4) mg/dl
[2021-05-09] MEDS ORDERED: ACETAMINOPHEN 325 MG TAB PO PRN (10:14)
[2021-05-09] MEDS ORDERED: hydrALAZINE HCL 20 MG/ML VIAL IV ONE (11:26)
--- NOTE | 2021-05-09 15:33 | Hospitalist Progress Note ---
Date of Service May 09, 2021 Assessment & Plan (1) Partial small bowel obstruction: Plan: (1) Partial small bowel obstruction: Plan: continue conservative management Continue with bowel regimen, patient will likely need upon discharge as well. 05/02: 2 moderate BM 05/03: 3 loose BM 05/03 KUB XR: persistent small bowel obstruction 05/04-05/05: No further bowel movement after 05/03, patient continues to report belly pain overnight requiring pain medication and also in the morning requiring pain medication 05/05 XR KUB reviewed and shows persistent bowel obstruction 05/05: Status post exploratory laparotomy and lysis of adhesion for small bowel obstruction by Nelda Chun 05/08: Had 1 bowel movement early in the morning., Patient eating very little. Denies nausea or vomiting. 05/09: improving belly pain, minimal to no nausea, no vomiting, diet advanced to full liq. c/w IV fluid (consider DCing once she tolerates diet well), diet per Sx, nausea control, supportive management. c/w bowel regimen and add Tums [patient reports gastritis improving with Tums in the past], continue to monitor. On Full Liq Diet per Sx rec. F/u with Sx as OP. Monitor and replete electrolytes as appropriate. #. High blood pressure Pt had high blood pressure mostly, likely 2/2 ongoing acute stress No BP meds at home losartan initiated after talking to the patient. BMP in a week time upon discharge if she were to DC on losartan. prn BP meds, closely monitor. Expect to improve with improvement in her acute condition. 2) Elevated troponin: Plan: -denies chest pain, shortness of breath -TTE no wall motion abnormalities (3) Repeated falls: Plan: PT/OT (4) Urinary tract infection symptoms: Plan: -Pansensitive E coli -s/p ceftriaxone DVT ppx Heparin #. Hypokalemia #. Hypophosphatemia -Monitor and replete as appropriate. Dispo: med/surg, PT/OT, CM to assist with DC planning. Pending improvement in her bowel function. 05/03: Patient son was at bedside during the afternoon, was updated about patient's current status including the option of surgery if she does not improve, answered all his questions, he voiced understanding and was agreeable to the plan of care. Admission and Anticipated Discharge Date Admission Date: April 27, 2021 Subjective Patient seen and examined at bedside for f/u of partial small bowel obstruction. She is s/p exp lap and lysis of adhesion Patient lying in bed, on room air, NAD, no new acute events overnight. Patient reports passing a lot of gas. Patient having high blood pressure in the morning, losartan initiated, as needed blood pressure medication, is reporting headache likely owing to high blood pressure. Patient reports minimal nausea, no vomiting, no bowel movement, has been eating less, no belly pain. Per surgery, plan to advance diet to full liquid today. Patient denies fever/chills/chest pain/palpitation/other review of symptoms. Physical Exam Physical Exam: GENERAL: Alert and oriented x3. NAD, on RA. HEENT: No pallor, no icterus. Pupils equal, round and reactive to light. Oral mucosa moist. NECK: No JVD, no neck masses. HEART: S1 and S2 heard. Regular rate and rhythm. No murmur, no gallop. RESPIRATORY SYSTEM: Normal AP diameter. No accessory muscle use. No wheezing, no crackles. ABDOMEN: Soft, bowel sounds present, Clean dressing without soakage noted, decreased belly distension from prior. NO tenderness on superficial palpation. CENTRAL NERVOUS SYSTEM: No facial droop. Speech is clear. Obeys simple commands. Moves extremities. EXTREMITIES: No edema, no erythema seen. Results & Data Results & Data ([facility]) Vital Signs (Past 12 Hours) Vital Signs Temp Pulse Pulse Resp BP Pulse Ox 05/09/21 15:08 36.8 C 80 20 173/89 H 96 05/09/21 12:46 78 160/73 H 05/09/21 11:15 37.0 C 76 20 184/96 H 96 05/09/21 07:58 36.9 C 74 20 186/88 H 95 05/09/21 07:14 73
[2021-05-09] MEDS: CITALOPRAM 20 MG TAB PO SCH (20:39)
[2021-05-10] MEDS: ONDANSETRON INJ 2 MG/ML 2 ML VIAL IV PRN ×2 (02:54→17:37)
[2021-05-10] MEDS: hydrALAZINE HCL 20 MG/ML VIAL IV PRN ×3 (03:19→19:08)
[2021-05-10] MEDS: CALCIUM CARBONATE 500 MG CHEWABLE TAB PO SCH ×2 (06:03→17:38)
--- NOTE | 2021-05-10 06:20 | Post Operative Brief Note ---
Immediate Post Op Note v1 Date of Surgery May 09, 2021 Pre & Post Diagnosis Operation Date: 05/05/21 17:50 Pre-Op Diagnosis: Partial small bowel obstruction Post-Op Diagnosis: Partial small bowel obstruction I identified the patient and participated in the time-out.: Yes Procedure Operation Date: 05/05/21 17:50 Actual Procedures p Exploratory Laparotomy, Lysis of adhesions(Not Applicable) - Nelda Russell MD Surgeon Nelda Russell MD [employer] Supervisor TOM Peña Estimated Blood Loss 10 Findings Consistent with Post-Op Diagnosis SBO caused by adhesion Fluids 1000ml Drains Norman Catheter Anesthesia Type General Complications none Disposition Accompanied Patient To Recovery: Yes
--- NOTE | 2021-05-10 06:27 | Surgery Progress Note ---
Date of Service May 10, 2021 Assessment & Plan (1) Partial small bowel obstruction: Plan: POD # 4 s/p ex lap, lysis of adhesion causing SBO -afebrile, hypertensive this am , systolic BP 180's-190's + headache - abdomen mildly distended, soft, no peritonitis - + bowel function, passing more flatus today - + nausea , but seems chronic given history of robin Plan: Advance to full liquid diet, advised to go slow continue pain management as needed, try to avoid narcotics if possible needs to ambulate more to increase GI motility Pt/OT SCDs and Heparin for DVT prophylaxis incentive spirometry ordered Hospitalist to manage hypertension okay for stool softener, pt does not take the Miralax as it causes nausea and gagging. Dr. Russell has seen and examined pt, agrees with above. 05/10/2021 6:24AM, Dr. Russell POD # 5 s/p ex lap, lysis of adhesion causing SBO -afebrile, hypertensive this am , systolic BP 180's-190's + headache - abdomen mildly distended, soft, no peritonitis - + bowel function, passing more flatus yesterday continue treatment, wait pass BM, dulcolax 10mg OR reglan 10 mg po q8 hours, x 2 days, only Admission and Anticipated Discharge Date Admission Date: April 27, 2021 Supervising Physician Co-Signing Physician Notes Patient is an 85-year-old female with history of degenerative joint disease, osteoporosis, GERD, and other medical problems presents with history of worsening abdominal pain since 1 day duration. Patient has history of laparoscopic Robin fundoplication many years ago. Patient states her last bowel movement was more than a week ago. She admits to trying Dulcolax for constipation intermittently. Also reports nausea but no vomiting. Reports chills but no fever. Also denies any chest pain, shortness of breath. Please review HPI for complete details of presentation. Blood work suggestive of hemoglobin 10.7, troponin 0 0.06. Urinalysis suggestive of possible UTI. CT abdomen showed findings suggestive of partial small bowel obstruction also noted moderate fecal stasis, small hiatal hernia and mild abdominal pelvic ascites. On exam patient is elderly, ill-appearing, thin, no apparent distress, normocephalic atraumatic, EOMI, decreased breath sounds, clear to auscultation, S1-S2, no murmur, no pedal edema, abdomen distended, tender, decreased bowel sounds, voluntary guarding, alert, awake, oriented, grossly no focal deficits. Patient is admitted for management of partial small bowel obstruction. Also noted mild elevation of troponin likely secondary to elevated blood pressure. Urinalysis concerning for UTI. We will keep her n.p.o. for now. Pain control. IV fluids. Surgery consulted. Will give tap water enema for fecal stasis. C onsider NG tube placement if needed. Agree with trending cardiac enzymes, check echo and repeat EKG in the morning. I personally reviewed the record. Patient is interviewed and examined at bedside. Patient's care is coordinated with Irena Lehman PA-C. Please refer to the documentation above for details of patient's presentation and for discussion of other issues. Subjective Patient seen and examined at bedside for f/u of partial small bowel obstruction. She is s/p exp lap and lysis of adhesion Patient lying in bed, on room air, NAD, no new acute events overnight. Patient reports passing a lot of gas. Patient having high blood pressure in the morning, losartan initiated, as needed blood pressure medication, is reporting headache likely owing to high blood pressure. Patient reports minimal nausea, no vomiting, no bowel movement, has been eating less, no belly pain. Per surgery, plan to advance diet to full liquid today. Patient denies fever/chills/chest pain/palpitation/other review of symptoms. 05/10/2021 6:21AM Dr. Russell pt passed some gas yesterday, pt feels bloating and nausea last night, no vomiting, no fever, mild abdominal pain, Physical Exam Constitutional: WD/WN, vitals as above Eyes: PERRL, conjunctivae normal, anicteric sclerae Neck: trachea midline, no thyromegaly Respiratory: normal respiratory effort, lungs clear to auscultation Cardiovascular: RRR, no murmur, no edema Gastrointestinal (Abdomen): soft, mild distend, mild tenderness at incision site, no rebound pain, BS +, incision intact, no redness, Musculoskeletal: no cyanosis or clubbing, extremities motor strength 5/5 Neurologic: patellar DTR's 2+ bilat, sensation intact Psychiatric: A+Ox3, euthymic affect Results & Data ([facility]) Vital Signs (Past 12 Hours) Vital Signs Temp Pulse Pulse Resp BP BP Pulse Ox 05/10/21 04:21 78 05/10/21 04:06 143/73 H 05/10/21 03:15 36.9 C 78 18 185/93 H 94 05/10/21 00:17 37.3 C 81 18 187/88 H 95 05/09/21 20:01 37.0 C 85 16 136/78 93
[2021-05-10] MEDS ORDERED: bisacodyL 10 MG SUPP PR STA (06:37)
[2021-05-10] MEDS: METOCLOPRAMIDE HCL 10 MG TABLET PO SCH ×3 (07:27→21:11)
[2021-05-10 07:39] LABS: Hematocrit (blood only) 29.9 % (37-47); Hemoglobin 9.3 g/dL (12.0-16.0)
[2021-05-10 08:23] LABS: Magnesium 1.6 mg/dl (1.7-2.4); Phosphorus 3.1 mg/dl (2.5-4.9); Potassium 3.7 mmol/L (3.5-5.1)
[2021-05-10] MEDS: HEPARIN SOD 5,000 UNIT/0.5 ML VIAL SQ SCH ×2 (08:47→21:11)
[2021-05-10] MEDS: DOCUSATE SODIUM 100 MG CAP PO SCH ×2 (08:48→21:12)
[2021-05-10] MEDS: SENNA 8.6 MG TAB PO SCH (08:48)
[2021-05-10] MEDS: LOSARTAN POTASSIUM 25 MG TAB PO SCH (09:01)
[2021-05-10] MEDS: D5W AND 1/2NSS + 20MEQ KCL 20 MEQ/1,000 ML BAG IV SCH ×2 (10:27→23:21)
--- NOTE | 2021-05-10 13:42 | Hospitalist Progress Note ---
Date of Service May 10, 2021 Assessment & Plan (1) Partial small bowel obstruction: Plan: (1) Small bowel obstruction: Plan: s/p ex lap, lysis of adhesion causing SBO continue conservative management Continue with bowel regimen, patient will likely need upon discharge as well. 05/02: 2 moderate BM 05/03: 3 loose BM 05/03 KUB XR: persistent small bowel obstruction 05/04-05/05: No further bowel movement after 05/03, patient continues to report belly pain overnight requiring pain medication and also in the morning requiring pain medication 05/05 XR KUB reviewed and shows persistent bowel obstruction 05/05: Status post exploratory laparotomy and lysis of adhesion for small bowel obstruction by Nelda Chun 05/08: Had 1 bowel movement early in the morning., Patient eating very little. Denies nausea or vomiting. 05/09: improving belly pain, minimal to no nausea, no vomiting, diet advanced to full liq. 05/10: atingCream of Wheat c/w IV fluid (consider DCing once she tolerates diet well), diet per Sx, nausea control, supportive management. c/w bowel regimen and add Tums [patient reports gastritis improving with Tums in the past], continue to monitor. On Full Liq Diet per Sx rec. F/u with Sx as OP. Monitor and replete electrolytes as appropriate. #. High blood pressure Pt had high blood pressure mostly, likely 2/2 ongoing acute stress No BP meds at home losartan initiated after talking to the patient. BMP in a week time upon discharge if she were to DC on losartan. prn BP meds, closely monitor. Expect to improve with improvement in her acute condition. 2) Elevated troponin: Plan: -denies chest pain, shortness of breath -TTE no wall motion abnormalities (3) Repeated falls: Plan: PT/OT (4) Urinary tract infection symptoms: Plan: -Pansensitive E coli -s/p ceftriaxone DVT ppx Heparin #. Hypokalemia #. Hypophosphatemia -Monitor and replete as appropriate. Dispo: med/surg, PT/OT, CM to assist with DC planning. Pending improvement in her bowel function. Labs reviewed ROS-No Headache, No Visual Changes, No Nausea, No Vomiting, No Fever, No Chills, No Neck Pain or Stiffness, No Chest Pain, No Palpitations, No SOB, No FRAZIER, No Cough, No Sputum, No Wheezing, No Abdominal Pain, No Diarrhea, No Hematemesis, No Hemoptysis, No Unexpected Weight Loss, No Flank pain, No Melena, No Hematochezia, No Frequency, No Urgency, No Burning, No Hematuria, No Rashes, No Diaphoresis. Appetite is Normal Physical Exam Gen-AAO x 3, NAD, Afebrile, Very Sweet Head-NCAT, EOMI, PERRLA, Anicteric Sclera, No Posterior Pharyngeal Erythema Neck-Supple, No JVD, No Thyromegaly, No Masses, No LAD, No Bruits Lungs-Clear to Auscultation Bilaterally, No Rales, No Rhonchi, No Wheezing, No Crepitus Chest-No S4, +S1, +S2, No S3, No Murmurs, No Rubs, No Gallops, No Ectopy Abdomen-Soft, Bowel Sounds Present, Non Tender, Non Distended, No Hepatomegaly, No Splenomegaly, No Palpable Masses, No Rebound, No Rigidity, No Guarding Musculoskeletal-Full Range of Motion Bilaterally, No CVAT Extremities-No Cyanosis, No Clubbing, No Edema Nuero-Cranial Nerves II-XII grossly intact, Motor WNL, DTRs WNL, Strength WNL, Non Focal Psych-Normal Mood Admission and Anticipated Discharge Date Admission Date: April 27, 2021 Subjective She is seen resting in bed denies any new issues overnight. Results & Data Results & Data ([facility]) Vital Signs (Past 12 Hours) Vital Signs Temp Pulse Pulse Resp BP BP Pulse Ox 05/10/21 12:10 72 144/76 H 05/10/21 11:40 84 170/90 H 05/10/21 11:12 36.7 C 74 18 174/87 H 95 05/10/21 07:17 36.8 C 76 18 156/79 H 95 05/10/21 06:11 85 05/10/21 04:21 78 05/10/21 04:06 143/73 H 05/10/21 03:15 36.9 C 78 18 185/93 H 94 Laboratory Results Current Diagnoses Partial intestinal obstruction, unspecified as to cause (04/27/21) Repeated falls (04/27/21) Unspecified symptoms and signs involving the genitourinary system (04/27/21) Other specified abnormalities of plasma proteins (04/27/21) Encounter for other preprocedural examination (04/27/21) Allergies latex Allergy (Mild, Verified 04/27/21 10:42) blisters Height/Weight/Isolation Height 5 ft Weight 48.4 kg Chemistry 05/09/21 05/10/21 05:32 06:54 Potassium 3.8 3.7
[2021-05-10] MEDS: CITALOPRAM 20 MG TAB PO SCH (21:11)
[2021-05-11] MEDS: hydrALAZINE HCL 20 MG/ML VIAL IV PRN ×2 (03:58→20:11)
[2021-05-11] MEDS: CALCIUM CARBONATE 500 MG CHEWABLE TAB PO SCH (06:05)
[2021-05-11] MEDS: METOCLOPRAMIDE HCL 10 MG TABLET PO SCH ×3 (06:05→21:33)
[2021-05-11] MEDS: SENNA 8.6 MG TAB PO SCH (08:50)
[2021-05-11] MEDS: DOCUSATE SODIUM 100 MG CAP PO SCH ×2 (08:50→21:34)
[2021-05-11] MEDS: LOSARTAN POTASSIUM 25 MG TAB PO SCH (08:50)
[2021-05-11] MEDS: HEPARIN SOD 5,000 UNIT/0.5 ML VIAL SQ SCH ×2 (08:50→21:27)
[2021-05-11] MEDS: ONDANSETRON INJ 2 MG/ML 2 ML VIAL IV PRN (08:58)
[2021-05-11] MEDS: D5W AND 1/2NSS + 20MEQ KCL 20 MEQ/1,000 ML BAG IV SCH ×2 (10:58→23:51)
--- NOTE | 2021-05-11 12:48 | Surgery Progress Note ---
Date of Service May 11, 2021 Assessment & Plan (1) Partial small bowel obstruction: Plan: POD # 4 s/p ex lap, lysis of adhesion causing SBO -afebrile, hypertensive this am , systolic BP 180's-190's + headache - abdomen mildly distended, soft, no peritonitis - + bowel function, passing more flatus today - + nausea , but seems chronic given history of robin Plan: Advance to full liquid diet, advised to go slow continue pain management as needed, try to avoid narcotics if possible needs to ambulate more to increase GI motility Pt/OT SCDs and Heparin for DVT prophylaxis incentive spirometry ordered Hospitalist to manage hypertension okay for stool softener, pt does not take the Miralax as it causes nausea and gagging. Dr. Russell has seen and examined pt, agrees with above. 05/10/2021 6:24AM, Dr. Russell POD # 5 s/p ex lap, lysis of adhesion causing SBO -afebrile, hypertensive this am , systolic BP 180's-190's + headache - abdomen mildly distended, soft, no peritonitis - + bowel function, passing more flatus yesterday continue treatment, wait pass BM, dulcolax 10mg [place] reglan 10 mg po q8 hours, x 2 days, only 05/11/2021 12:47AM, Dr. Russell POD # 6 s/p ex lap, lysis of adhesion causing SBO -afebrile, hypertensive this am , systolic BP 180's-190's + headache - soft, no peritonitis - + bowel function, passing more flatus yesterday continue treatment, wait pass BM, dulcolax 10mg [place] will F/U Admission and Anticipated Discharge Date Admission Date: April 27, 2021 Supervising Physician Co-Signing Physician Notes Patient is an 85-year-old female with history of degenerative joint disease, osteoporosis, GERD, and other medical problems presents with history of worsening abdominal pain since 1 day duration. Patient has history of laparoscopic Robin fundoplication many years ago. Patient states her last bowel movement was more than a week ago. She admits to trying Dulcolax for constipation intermittently. Also reports nausea but no vomiting. Reports chills but no fever. Also denies any chest pain, shortness of breath. Please review HPI for complete details of presentation. Blood work suggestive of hemoglobin 10.7, troponin 0 0.06. Urinalysis suggestive of possible UTI. CT abdomen showed findings suggestive of partial small bowel obstruction also noted moderate fecal stasis, small hiatal hernia and mild abdominal pelvic ascites. On exam patient is elderly, ill-appearing, thin, no apparent distress, normocephalic atraumatic, EOMI, decreased breath sounds, clear to auscultation, S1-S2, no murmur, no pedal edema, abdomen distended, tender, decreased bowel sounds, voluntary guarding, alert, awake, oriented, grossly no focal deficits. Patient is admitted for management of partial small bowel obstruction. Also noted mild elevation of troponin likely secondary to elevated blood pressure. Urinalysis concerning for UTI. We will keep her n.p.o. for now. Pain control. IV fluids. Surgery consulted. Will give tap water enema for fecal stasis. Consider NG tube placement if needed. Agree with trending cardiac enzymes, check echo and repeat EKG in the morning. I personally reviewed the record. Patient is interviewed and examined at bedside. Patient's care is coordinated with Irena Lehman PA-C. Please refer to the documentation above for details of patient's presentation and for discussion of other issues. Subjective She is seen resting in bed denies any new issues overnight. 05/11/2021 12:45PM, Drew Anderson doing better, passed gas, small amount stool, no abdominal pain, no vomiting, Physical Exam Constitutional: WD/WN, vitals as above Eyes: PERRL, conjunctivae normal, anicteric sclerae Neck: trachea midline, no thyromegaly Respiratory: normal respiratory effort, lungs clear to auscultation Cardiovascular: RRR, no murmur, no edema Gastrointestinal (Abdomen): soft, Nt, Nd, the incision intact, no redness, BS + Musculoskeletal: no cyanosis or clubbing, extremities motor strength 5/5 Neurologic: patellar DTR's 2+ bilat, sensation intact Psychiatric: A+Ox3, euthymic affect Results & Data ([facility]) Vital Signs (Past 12 Hours) Vital Signs Temp Pulse Pulse Resp BP BP Pulse Ox 05/11/21 10:56 36.9 C 87 18 154/80 H 05/11/21 07:21 36.7 C 85 18 166/86 H 92 05/11/21 07:16 87 05/11/21 03:49 36.9 C 81 18 166/79 H 93
--- NOTE | 2021-05-11 12:52 | Hospitalist Progress Note ---
Date of Service May 11, 2021 Assessment & Plan (1) Partial small bowel obstruction: Plan: (1) Small bowel obstruction: Plan: s/p ex lap, lysis of adhesion causing SBO continue conservative management Continue with bowel regimen, patient will likely need upon discharge as well. 05/02: 2 moderate BM 05/03: 3 loose BM 05/03 KUB XR: persistent small bowel obstruction 05/04-05/11: No further bowel movement +Gas 05/05 XR KUB reviewed and shows persistent bowel obstruction 05/05: Status post exploratory laparotomy and lysis of adhesion for small bowel obstruction by Nelda Chun 05/08: Had 1 bowel movement early in the morning., Patient eating very little. Denies nausea or vomiting. 05/09: improving belly pain, minimal to no nausea, no vomiting, diet advanced to full liq. 05/10: Eating Cream of Wheat c/w IV fluid (consider DCing once she tolerates diet well), diet per Sx, nausea control, supportive management. c/w bowel regimen and add Tums [patient reports gastritis improving with Tums in the past], continue to monitor. On Full Liq Diet per Sx rec. F/u with Sx as OP. Monitor and replete electrolytes as appropriate. #. High blood pressure Pt had high blood pressure mostly, likely 2/2 ongoing acute stress No BP meds at home losartan initiated after talking to the patient. BMP in a week time upon discharge if she were to DC on losartan. prn BP meds, closely monitor. Expect to improve with improvement in her acute condition. 2) Elevated troponin: Plan: -denies chest pain, shortness of breath -TTE no wall motion abnormalities (3) Repeated falls: Plan: PT/OT (4) Urinary tract infection symptoms: Plan: -Pansensitive E coli -s/p ceftriaxone DVT ppx Heparin #. Hypokalemia #. Hypophosphatemia -Monitor and replete as appropriate. Dispo: med/surg, PT/OT, CM to assist with DC planning. DC 1-2 days Possibly [facility] Labs reviewed ROS-No Headache, No Visual Changes, No Nausea, No Vomiting, No Fever, No Chills, No Neck Pain or Stiffness, No Chest Pain, No Palpitations, No SOB, No FRAZIER, No Cough, No Sputum, No Wheezing, No Abdominal Pain, No Diarrhea, No Hematemesis, No Hemoptysis, No Unexpected Weight Loss, No Flank pain, No Melena, No Hematochezia, No Frequency, No Urgency, No Burning, No Hematuria, No Rashes, No Diaphoresis. Appetite is Normal, +Gas, No BM Physical Exam Gen-AAO x 3, NAD, Afebrile, Very Sweet Head-NCAT, EOMI, PERRLA, Anicteric Sclera, No Posterior Pharyngeal Erythema Neck-Supple, No JVD, No Thyromegaly, No Masses, No LAD, No Bruits Lungs-Clear to Auscultation Bilaterally, No Rales, No Rhonchi, No Wheezing, No Crepitus Chest-No S4, +S1, +S2, No S3, No Murmurs, No Rubs, No Gallops, No Ectopy Abdomen-Soft, Bowel Sounds Present, Non Tender, Non Distended, No Hepatomegaly, No Splenomegaly, No Palpable Masses, No Rebound, No Rigidity, No Guarding Musculoskeletal-Full Range of Motion Bilaterally, No CVAT Extremities-No Cyanosis, No Clubbing, No Edema Nuero-Cranial Nerves II-XII grossly intact, Motor WNL, DTRs WNL, Strength WNL, Non Focal Psych-Normal Mood Admission and Anticipated Discharge Date Admission Date: April 27, 2021 Subjective She is seen resting in bed denies any new issues overnight. doing better, passed gas, No stool yet for for but +when seen by Results & Data Results & Data ([facility]) Vital Signs (Past 12 Hours) Vital Signs Temp Pulse Pulse Resp BP BP Pulse Ox 05/11/21 10:56 36.9 C 87 18 154/80 H 05/11/21 07:21 36.7 C 85 18 166/86 H 92 05/11/21 07:16 87 05/11/21 03:49 36.9 C 81 18 166/79 H 93
[2021-05-11] MEDS ORDERED: PROMETHAZINE HCL 12.5 MG in SODIUM CHLORIDE 0.9% 50 ML IV PRN (19:35)
[2021-05-11] MEDS: CITALOPRAM 20 MG TAB PO SCH (21:34)
[2021-05-12] MEDS: METOCLOPRAMIDE HCL 10 MG TABLET PO SCH (06:07)
[2021-05-12] MEDS: HEPARIN SOD 5,000 UNIT/0.5 ML VIAL SQ SCH (07:57)
[2021-05-12] MEDS: LOSARTAN POTASSIUM 25 MG TAB PO SCH (07:57)
[2021-05-12] MEDS: DOCUSATE SODIUM 100 MG CAP PO SCH (07:57)
[2021-05-12] MEDS: SENNA 8.6 MG TAB PO SCH (07:57)
[2021-05-12 08:47] LABS: Basophils # (auto) 0.06 K/uL (0-0.2); Basophils % (auto) 1.1 %; Eosinophils # (auto) 0.36 K/uL (0-0.5); Eosinophils % (auto) 6.3 %; Hematocrit (blood only) 32.5 % (37-47); Hemoglobin 9.8 g/dL (12.0-16.0); Immature Granulocytes # (auto) 0.02 K/uL (0.00-0.02); Immature Granulocytes % (auto) 0.4 %; Lymphocytes # (auto) 1.07 K/uL (1.2-3.4); Lymphocytes % (auto) 18.8 %; Mean Corpuscular Hemoglobin 25.3 pg (25-34); Mean Corpuscular Hgb Conc 30.2 g/dL (32-36); Mean Corpuscular Volume 83.8 fL (80-100); Mean Platelet Volume 10.2 fL (7.4-10.4); Monocytes # (auto) 0.62 K/uL (0.11-0.59); Monocytes % (auto) 10.9 %; Neutrophils # (auto) 3.56 K/uL (1.4-6.5); Neutrophils % (auto) 62.5 %; Platelet Count 369 K/uL (130-400); RDW Coefficient of Variation 16.3 % (11.5-14.5); RDW Standard Deviation 49.6 fL (36.4-46.3); Red Blood Count 3.88 M/uL (4.2-5.4); White Blood Count 5.69 K/uL (4.8-10.8)
[2021-05-12 09:15] LABS: Albumin Globulin Ratio 1.4 (0.9-2); Albumin Level 3.2 gm/dl (3.4-5.0); BUN Creatinine Ratio 5.5 (10-20); Bilirubin,Total 0.3 mg/dl (0.2-1.0); Calcium 8.1 mg/dl (8.5-10.1); Creatinine Clr Calc Pharmacy 51.8 ml/min; Est GFR (African American) 97.7 ml/min; Est GFR (Non-African American) 84.3 ml/min; Globulin 2.3 gm/dl (2.5-4.0); Potassium 3.6 mmol/L (3.5-5.1); Total Protein 5.5 gm/dl (6.0-8.3)
--- NOTE | 2021-05-12 10:36 | Surgery Progress Note ---
Date of Service May 12, 2021 Assessment & Plan (1) Partial small bowel obstruction: Plan: POD # 7 s/p ex lap, lysis of adhesion causing SBO -afebrile, hypertensive this am , systolic BP 180's-190's + headache - abdomen mildly distended, soft, no peritonitis - + bowel function, passing more flatus today - + nausea , but seems chronic given history of robin Plan: Advance to low fiber diet needs bowel regimen (chronic history of constipation with small pellet sized stools for months prior to this admission). Unable to tolerate Miralax. Currently on Colace BID and Senokot daily Doing well from surgical standpoint continue medical management. Discussed with Dr. Russell who is to see patient later today. Admission and Anticipated Discharge Date Admission Date: April 27, 2021 Subjective feeling better tolerating full liquids abdominal pain from surgery is minimal passing gas, passing only small pellets of stool. Chronic issues of constipation for months prior to this hospitalization + nausea still not back to baseline (chronic nausea from Robin fundoplication in 2011) no vomiting (unable to vomit), no retching worked with PT yesterday, walked hallway and worked on steps Physical Exam Constitutional: + thin; no acute distress and not ill appearing Neck: normal visual inspection and trachea midline Respiratory: normal respiratory effort; no respiratory distress Gastrointestinal (Abdomen): Inspection/Auscultation: abdomen normal to inspection and + abdominal surgical incision (clean, dry, intact with erik); abdomen not distended and + abnormal bowel sounds Percussion/Palpation: + abdomen tender (mild tenderness of left abdomen) and abdomen soft; no guarding, abdomen not rigid and abdomen not firm Skin: no rashes, warm and dry Psychiatric: Orientation: alert and oriented x 3 Results & Data ([facility]) Vital Signs (Past 12 Hours) Vital Signs Temp Pulse Pulse Pulse Resp BP Pulse Ox 05/12/21 07:40 36.7 C 79 13 164/78 H 95 05/12/21 03:27 86 05/12/21 02:47 36.8 C 76 17 162/74 H 17 L Laboratory Results 05/12/21 05/12/21 Range/Units 08:17 08:17 WBC 5.69 (4.8-10.8) K/uL RBC 3.88 L (4.2-5.4) M/uL Hgb 9.8 L (12.0-16.0) g/dL Hct 32.5 L (37-47) % MCV 83.8 (80-100) fL MCH 25.3 (25-34) pg MCHC 30.2 L (32-36) g/dL RDW Std Deviation 49.6 H (36.4-46.3) fL RDW Coeff of Kayli 16.3 H (11.5-14.5) % Plt Count 369 (130-400) K/uL MPV 10.2 (7.4-10.4) fL Immature Gran % (Auto) 0.4 % Neut % (Auto) 62.5 % Lymph % (Auto) 18.8 % Wayne % (Auto) 10.9 % Eos % (Auto) 6.3 % Baso % (Auto) 1.1 % Neut # (Auto) 3.56 (1.4-6.5) K/uL Lymph # (Auto) 1.07 L (1.2-3.4) K/uL Wayne # (Auto) 0.62 H (0.11-0.59) K/uL Eos # (Auto) 0.36 (0-0.5) K/uL Baso # (Auto) 0.06 (0-0.2) K/uL Immature Gran # (Auto) 0.02 (0.00-0.02) K/uL Sodium 134 L (136-145) mmol/L Potassium 3.6 (3.5-5.1) mmol/L Chloride 100 (98-107) mmol/L Carbon Dioxide 28 (21-32) mmol/L Anion Gap 6 (3-11) BUN 3 L (6-23) mg/dl Creatinine 0.55 L (0.6-1.2) mg/dl Est Cr Clr Drug Dosing 51.8 ml/min Est GFR ( Amer) 97.7 ml/min Est GFR (Non-Af Amer) 84.3 ml/min BUN/Creatinine Ratio 5.5 L (10-20) Glucose 125 H (70-99(Fasting)) mg/dl Calcium 8.1 L (8.5-10.1) mg/dl Total Bilirubin 0.3 (0.2-1.0) mg/dl AST 14 (13-39) U/L ALT 6 L (7-52) U/L Alkaline Phosphatase 64 (34-104) U/L Total Protein 5.5 L (6.0-8.3) gm/dl Albumin 3.2 L (3.4-5.0) gm/dl Globulin 2.3 L (2.5-4.0) gm/dl Albumin/Globulin Ratio 1.4 (0.9-2)
--- NOTE | 2021-05-12 11:17 | Hospitalist Progress Note ---
Date of Service May 12, 2021 Assessment & Plan (1) Partial small bowel obstruction: Plan: (1) Small bowel obstruction: Plan: s/p ex lap, lysis of adhesion causing SBO continue conservative management Continue with bowel regimen, patient will likely need upon discharge as well. 05/02: 2 moderate BM 05/03: 3 loose BM 05/03 KUB XR: persistent small bowel obstruction 05/04-05/11: No further bowel movement +Gas 05/12 +Gas, Small BM 05/05 XR KUB reviewed and shows persistent bowel obstruction 05/05: Status post exploratory laparotomy and lysis of adhesion for small bowel obstruction by Nelda Chun 05/08: Had 1 bowel movement early in the morning., Patient eating very little. Denies nausea or vomiting. 05/09: improving belly pain, minimal to no nausea, no vomiting, diet advanced to full liq. 05/10: Eating Cream of Wheat c/w IV fluid (consider DCing once she tolerates diet well), diet per Sx, nausea control, supportive management. c/w bowel regimen and add Tums [patient reports gastritis improving with Tums in the past], continue to monitor. ADAT F/u with Sx as OP. Monitor and replete electrolytes as appropriate. DC home c HHC today or AM #. High blood pressure Pt had high blood pressure mostly, likely 2/2 ongoing acute stress No BP meds at home losartan initiated after talking to the patient. BMP in a week time upon discharge if she were to DC on losartan. prn BP meds, closely monitor. Expect to improve with improvement in her acute condition. 2) Elevated troponin: Plan: -denies chest pain, shortness of breath -TTE no wall motion abnormalities (3) Repeated falls: Plan: PT/OT (4) Urinary tract infection symptoms: Plan: -Pansensitive E coli -s/p ceftriaxone DVT ppx Heparin #. Hypokalemia #. Hypophosphatemia -Monitor and replete as appropriate. Dispo: med/surg, PT/OT, CM to assist with DC planning. DC today or tomorrow, D/W Family Dannielle and RICHIE Gunter c Home Labs reviewed ROS-No Headache, No Visual Changes, No Nausea, No Vomiting, No Fever, No Chills, No Neck Pain or Stiffness, No Chest Pain, No Palpitations, No SOB, No FRAZIER, No Cough, No Sputum, No Wheezing, No Abdominal Pain, No Diarrhea, No Hematemesis, No Hemoptysis, No Unexpected Weight Loss, No Flank pain, No Melena, No Hematochezia, No Frequency, No Urgency, No Burning, No Hematuria, No Rashes, No Diaphoresis. Appetite is Normal, +Gas, No BM Physical Exam Gen-AAO x 3, NAD, Afebrile, Very Sweet Head-NCAT, EOMI, PERRLA, Anicteric Sclera, No Posterior Pharyngeal Erythema Neck-Supple, No JVD, No Thyromegaly, No Masses, No LAD, No Bruits Lungs-Clear to Auscultation Bilaterally, No Rales, No Rhonchi, No Wheezing, No Crepitus Chest-No S4, +S1, +S2, No S3, No Murmurs, No Rubs, No Gallops, No Ectopy Abdomen-Soft, Bowel Sounds Present, Non Tender, Non Distended, No Hepatomegaly, No Splenomegaly, No Palpable Masses, No Rebound, No Rigidity, No Guarding Musculoskeletal-Full Range of Motion Bilaterally, No CVAT Extremities-No Cyanosis, No Clubbing, No Edema Nuero-Cranial Nerves II-XII grossly intact, Motor WNL, DTRs WNL, Strength WNL, Non Focal Psych-Normal Mood Admission and Anticipated Discharge Date Admission Date: April 27, 2021 Results & Data Results & Data ([facility]) Vital Signs (Past 12 Hours) Vital Signs Temp Pulse Pulse Pulse Resp BP Pulse Ox 05/12/21 11:06 80 05/12/21 10:59 160/80 H 05/12/21 10:45 36.8 C 76 14 96 05/12/21 07:40 36.7 C 79 13 164/78 H 95 05/12/21 03:27 86 05/12/21 02:47 36.8 C 76 17 162/74 H 17 L
--- NOTE | 2021-05-12 11:32 | Discharge Summary ---
Date of Service May 12, 2021 Admission HPI Per Admitting Provider This is an 85 y/o female with a PMH of HTN (not on meds), urge incontinence (not on meds), DJD, osteoporosis, and reflux esophagitis s/p Seferino fundoplication who presents to the ED with acute worsening of chronic abdominal pain over the past 24 hours. The pt reports having a laparoscopic Seferino fundoplication by Dr. Hedrick in 2011. Since then, she has had some ongoing issues with intermittent abdominal pain and things getting stuck that she manages with diet modification. However, this has slowly worsened over the past several months such that she can only tolerate a few foods at present including Ritz crackers and coffee-soaked bread. Over the past few weeks, her pain has become more constant and she has noted worsening of chronic constipation. Her last BM was 8-9 days ago and was hard and difficult to pass. She has been using Dulcolax for constipation intermittently. Typically Zofran controls her occasional nausea but over the past 24 hours this no longer seems to be helping. She does have a history of difficulty tolerating narcotics so she prefers to use acetaminophen for pain. Since the Seferino, she does not vomit but she does have nausea and gagging that is worse today. Pain kept her up most of last night. When pain is severe, she has associated chills and sweats. She did have some transient substernal chest pain last night but this has since resolved and she relates it to the abdominal pain. She denies documented fever and shortness of breath. No recent dysuria, hematuria, urinary frequency. She has chronic issues with intermittent dizziness and her son has noted increased falls recently due to this. She does not use a walker at home. She cares for her 92 y/o usually. Her son has noted a gradual decline in her oral intake and even energy over the past the several months. Admission Exam Per Admitting Provider Constitutional: + ill appearing and + thin; no acute dis tress Eyes: + anicteric sclerae Neck: trachea midline Respiratory: no respiratory distress and no labored breathing Auscultation: lungs clear to auscultation bilaterally; no rales, no rhonchi and no wheezes Cardiovascular: Rate/Rhythm: regular rate and regular rhythm Vessels: posterior tibial pulses present and dorsalis pedis pulses present Extremities: no pedal edema Gastrointestinal (Abdomen): Inspection/Auscultation: + abdomen distended and normal bowel sounds Percussion/Palpation: + abdomen tender and abdomen soft; no guarding and abdomen not rigid Musculoskeletal: Head/Neck/Chest: normocephalic, head atraumatic and neck supple Skin: no jaundice Neurologic: moves all extremities; no focal motor deficits Principal Diagnosis Small bowel obstruction: High blood pressure Elevated troponin: Repeated falls: Urinary tract infection symptoms: Hypokalemia Hypophosphatemia Discharge Data Allergies Allergy/AdvReac Type Severity Reaction Status Date / Time latex Allergy Mild blisters Verified 04/27/21 10:42 Consultations 04/27/21 12:25 ED Decision to Admit Stat 04/27/21 15:53 Consult General Surgery Routine Procedures Performed Operation Date: 05/05/21 17:50 Actual Procedures p Exploratory Laparotomy, Lysis of adhesions(Not Applicable) - Nelda Russell MD Ordered Studies 04/27/21 09:43 CT abd pelvis IV con only Stat 05/01/21 11:37 FL small bowel follow through Stat 05/03/21 09:17 US gallbladder Routine Current Diagnoses Partial intestinal obstruction, unspecified as to cause (04/27/21) Repeated falls (04/27/21) Unspecified symptoms and signs involving the genitourinary system (04/27/21) Other specified abnormalities of plasma proteins (04/27/21) Encounter for other preprocedural examination (04/27/21) Allergies latex Allergy (Mild, Verified 04/27/21 10:42) blisters Height/Weight/Isolation Height 5 ft Weight 45.6 kg Chemistry 05/12/21 08:17 Sodium 134 L Potassium 3.6 Chloride 100 Carbon Dioxide 28 Anion Gap 6 BUN 3 L Creatinine 0.55 L Glucose 125 H Hospital Course (1) Partial small bowel obstruction: (1) Small bowel obstruction: Plan: s/p ex lap, lysis of adhesion causing SBO continue conservative management Continue with bowel regimen, patient will likely need upon discharge as well. 05/02: 2 moderate BM 05/03: 3 loose BM 05/03 KUB XR: persistent small bowel obstruction 05/04-05/11: No further bowel movement +Gas / +Gas, Small BM 05/05 XR KUB reviewed and shows persistent bowel obstruction 05/05: Status post exploratory laparotomy and lysis of adhesion for small bowel obstruction by Nelda Chun 05/08: Had 1 bowel movement early in the morning., Patient eating very little. Denies nausea or vomiting. 05/09: improving belly pain, minimal to no nausea, no vomiting, diet advanced to full liq. 05/10: Eating Cream of Wheat c/w IV fluid (consider DCing once she tolerates diet well), diet per Sx, nausea control, supportive management. c/w bowel regimen and add Tums [patient reports gastritis improving with Tums in the past], continue to monitor. ADAT F/u with Sx as OP. Monitor and replete electrolytes as appropriate. DC home c HHC today or AM #. High blood pressure Pt had high blood pressure mostly, likely 2/2 ongoing acute stress No BP meds at home losartan initiated after talking to the patient. BMP in a week time upon discharge if she were to DC on losartan. prn BP meds, closely monitor. Expect to improve with improvement in her acute condition. 2) Elevated troponin: Plan: -denies chest pain, shortness of breath -TTE no wall motion abnormalities (3) Repeated falls: Plan: PT/OT (4) Urinary tract infection symptoms: Plan: -Pansensitive E coli -s/p ceftriaxone DVT ppx Heparin #. Hypokalemia #. Hypophosphatemia -Monitor and replete as appropriate. Dispo: med/surg, PT/OT, CM to assist with DC planning. DC today or tomorrow, D/W Family Dannielle and RICHIE Gunter c Home Labs reviewed ROS-No Headache, No Visual Changes, No Nausea, No Vomiting, No Fever, No Chills, No Neck Pain or Stiffness, No Chest Pain, No Palpitations, No SOB, No FRAZIER, No Cough, No Sputum, No Wheezing, No Abdominal Pain, No Diarrhea, No Hematemesis, No Hemoptysis, No Unexpected Weight Loss, No Flank pain, No Melena, No Hematochezia, No Frequency, No Urgency, No Burning, No Hematuria, No Rashes, No Diaphoresis. Appetite is Normal, +Gas, No BM Physical Exam Gen-AAO x 3, NAD, Afebrile, Very Sweet Head-NCAT, EOMI, PERRLA, Anicteric Sclera, No Posterior Pharyngeal Erythema Neck-Supple, No JVD, No Thyromegaly, No Masses, No LAD, No Bruits Lungs-Clear to Auscultation Bilaterally, No Rales, No Rhonchi, No Wheezing, No Crepitus Chest-No S4, +S1, +S2, No S3, No Murmurs, No Rubs, No Gallops, No Ectopy Abdomen-Soft, Bowel Sounds Present, Non Tender, Non Distended, No Hepatomegaly, No Splenomegaly, No Palpable Masses, No Rebound, No Rigidity, No Guarding Musculoskeletal-Full Range of Motion Bilaterally, No CVAT Extremities-No Cyanosis, No Clubbing, No Edema Nuero-Cranial Nerves II-XII grossly intact, Motor WNL, DTRs WNL, Strength WNL, Non Focal Psych-Normal Mood I certify that this patient is under my care and that I, or a physicians assistant terminal manager working with me, had a face to-face encounter that meets the home health [id number] encounter requirements with this patient. The encounter with the patient was in whole, or in part, for the following medical condition, which is the primary reason for home health care (list medical condition): I certify that, based on my findings, the following services are medically necessary home health services: My clinical findings support the need for the above services because: Further, I certify that my clinical findings support that this patient is homebound (i.e. absences from home require considerable and taxing effort and are for medical reasons or nondenominational services or infrequently or of short duration when for other reasons) because: Certification for Home Health Services: Based on the above findings, I certify that this patient is confined to the home and needs intermittent alf care, physical therapy and/or speech therapy or continues to need occupational therapy. The patient is under my care, and I have initiated the establishment of the plan of care. This patient will be followed by a physician who will periodically review the plan of care. Total Time Total Time Spent Total Time Spent (In Minutes): 45 mins Total Time Includes: Examination of the Patient, Discharge Planning, Medication Reconciliation and Communication With Other Providers Discharge Plan Discharge Items Patient Disposition: Home - Home Health Services Reason For Visit: PARTIAL SBO Discharge Diagnosis: Small bowel obstruction: High blood pressure Elevated troponin: Repeated falls: Urinary tract infection symptoms: Hypokalemia Hypophosphatemia Condition on Discharge: Good Health Concerns: Must eat well Activity: Resume your previous activity Lifting: Wait until after follow-up appointment Bathing: No limitations Exercise/Sports: None Driving/Machine Use: None Weightbearing: Full weightbearing Non-emergency contact: Primary Care Provider and Surgeon Call non-emergency contact if: you have any medication questions Follow-up/Referrals: Calvin Mcgill MD [Primary Care Provider] - Nelda Russell MD [Physician] - (Call for instructions) Diet: Heart Healthy Diet Texture: Easy to Chew Addtl Sausage Cutter Provider Instructions: Post-Surgical ~Discharge Instructions Activity Recommendations: - lifting limitation: (10 pounds for 6 weeks), - exercise/sex/sports limit: (nonstrenuous for 2 weeks), - driving or machine use limit: (none for 1 week or until pain free), - Shower/bathe limit: (may shower) Diet: - Resume previous diet SPECIAL CARE INSTRUCTIONS: - May shower Let water run over area and pat dry. - Surgical erik will be removed in office. - Call the surgeon's office with any questions or concerns - - (ex. temperature higher than 101 degrees F, excessive bleeding or pain). MEDICATIONS: - Resume previous medications unless instructed otherwise by your surgeon. FOLLOW UP VISIT: - If not already scheduled, please call the office to schedule a one-two week follow-up appointment. Office number Pending Studies at Discharge: No Stand-Alone Forms: My [employer], Smoking Cessation Medications and DC Order Prescriptions: New losartan 25 mg Tablet 25 mg PO QAM Qty: 30 RF: 0 acetaminophen 325 mg Tablet 650 mg PO Q4H PRN (Reason: fever or pain) Qty: 90 RF: 0 docusate sodium 100 mg Capsule 100 mg PO BID Qty: 60 RF: 0 sennosides [Senokot] 8.6 mg Tablet 17.2 mg PO QAM Qty: 60 RF: 0 tramadol 50 mg tablet 50 mg PO Q8H PRN (Reason: pain) Qty: 30 RF: 0 Continued citalopram 20 mg tablet 30 mg PO HS RF: 0 ondansetron 4 mg Tablet,Disintegrating 4 mg PO Q6H PRN (Reason: Nausea And Vomiting) RF: 0 Discharge Orders: Discharge Order (Routine); Ordered 05/12/21 Ordered By: Ayden Lovett Admission Data Admit Date/Time: 04/27/21 12:42 Attending Provider: Ayden Lovett Admit Provider: Bao Mcmahon Primary Care Provider: Calvin Mcgill Other Providers: Bao Mcmahon ; Nelda Russell ; [place],[facility]
[2021-05-12] MEDS ORDERED: amLODIPine BESYLATE 5 MG TAB PO ONE (11:45)
[2021-05-12] MEDS: D5W AND 1/2NSS + 20MEQ KCL 20 MEQ/1,000 ML BAG IV SCH (12:27)
== END 2021-05-12 15:21 | disposition home health service (06) | DRG 336 ==
LOC: ED 09:15 → SUATTDRO 12:42 → EDINP 12:42 → 2W 15:09